=== PATIENT | male | born 1945 | race Caucasian/White ===

== ENCOUNTER 2018-09-18 16:36 | Emergency (ER) | payer OTHER ==
--- OUTSIDE RECORDS SUMMARY | 2018-09-18 16:40 | XMS REPORT | Clinical Summary ---
:1945 Author Organization [facility] Address [address] [place] [address] Care Team Providers Name Role Phone Abel Pruitt MD Primary Care Provider Allergies Active Allergy Reactions Severity Noted Date Comments No Known Drug Allergies 09/21/2015 Medications Medication Sig Dispensed Refills Start End Date Status Date LANTUS SOLOSTAR 100 Inject 70 Units 0 Active unit/mL injection under the skin 7 (pen) nightly. acetaminophen Take 500 mg by 0 Active (TYLENOL) 500 MG mouth 2 (two) tablet times a day. magnesium oxide 400 Take 800 mg by 0 Active mg capsule mouth daily. metFORMIN Take 1,000 mg 0 Active (GLUCOPHAGE) 1,000 mg by mouth 2 tablet (two) times a day with meals. multivitamin Take 1 tablet 0 Active (THERAGRAN) tablet by mouth daily. traMADol (ULTRAM) 50 Take 50 mg by 0 Active mg tablet mouth every 8 (eight) hours as needed for moderate pain. metoclopramide Take 1 tablet 120 tablet 11 06/07/19 Active (REGLAN) 10 MG tablet (10 mg total) 9 20 by mouth 4 (four) times a day. hydrALAZINE TAKE 2 TABLET 180 tablet 0 Active (APRESOLINE) 10 MG BY MOUTH THREE 9 tablet TIMES A DAY amLODIPine (NORVASC) Take 1 tablet 90 tablet 3 Active 10 mg (10 mg total) 9 tabletIndications: by mouth every Coronary morning. arteriosclerosis, Mixed hyperlipidemia carvedilol (COREG) 25 TAKE ONE AND 135 tablet 3 Active MG tabletIndications: ONE-HALF (1 & 9 Coronary 1/2) TABLET BY arteriosclerosis, MOUTH TWO TIMES Mixed hyperlipidemia A DAY isosorbide Take 1 tablet 90 tablet 3 Active mononitrate (IMDUR) (30 mg total) 9 30 MG 24 hr by mouth daily. tabletIndications: Coronary arteriosclerosis, Mixed hyperlipidemia lisinopril Take 1 tablet 180 tablet 3 Active (PRINIVIL,ZESTRIL) 20 (20 mg total) 9 mg tabletIndications: by mouth 2 Coronary (two) times a arteriosclerosis, day. Mixed hyperlipidemia hydrALAZINE Take 1 tablet 90 tablet 2 08/21/19 Active (APRESOLINE) 25 MG (25 mg total) 9 20 tabletIndications: by mouth every Coronary 8 (eight) arteriosclerosis, hours. Mixed hyperlipidemia evolocumab (REPATHA Inject 1 mL 6 Syringe 6 Active SURECLICK) 140 mg/mL (140 mg total) 9 pen injector under the skin injectionIndications: every 14 Mixed hyperlipidemia, (fourteen) Coronary days. Check arteriosclerosis lipids after 6 months to continue this medication famotidine (PEPCID) Take 1 tablet 60 tablet 10 08/27/19 Active 40 MG tablet (40 mg total) 9 20 by mouth 2 (two) times a day. amLODIPine (NORVASC) Take 1 tablet 90 tablet 3 01/16/20 Discontinued 10 mg tablet (10 mg total) 7 18 by mouth every morning. pantoprazole Take 40 mg by 0 05/08/19 Discontinued (PROTONIX) 40 MG EC mouth daily. 7 19 tablet isosorbide TAKE ONE TABLET 30 tablet 5 01/09/20 Discontinued mononitrate (IMDUR) BY MOUTH DAILY 8 18 30 MG 24 hr tablet lisinopril TAKE ONE TABLET 90 tablet 2 01/09/20 Discontinued (PRINIVIL,ZESTRIL) 20 BY MOUTH TWICE 8 18 mg tablet A DAY nitroglycerin Place 0.4 mg 0 04/11/19 Discontinued (NITROSTAT) 0.4 MG SL under the 19 tablet tongue every 5 (five) minutes as needed for chest pain. carvedilol (COREG) Take 3 tablets 180 tablet 0 11/01/19 Discontinued 12.5 MG tablet (37.5 mg total) 8 18 by mouth 2 (two) times a day. hydrALAZINE Take 1 tablet 90 tablet 0 10/18/19 Discontinued (APRESOLINE) 25 MG (25 mg total) 8 18 tablet by mouth every 8 (eight) hours. aspirin (ECOTRIN) 81 Take 1 tablet 30 tablet 11 05/22/19 Discontinued MG enteric coated (81 mg total) 8 19 tablet by mouth daily. hydrALAZINE Take 1 tablet 90 tablet 2 10/19/19 Discontinued (APRESOLINE) 25 MG (25 mg total) 8 18 tablet by mouth every 8 (eight) hours. hydrALAZINE Take 1 tablet 90 tablet 2 10/19/19 Discontinued (APRESOLINE) 25 MG (25 mg total) 8 18 tablet by mouth every 8 (eight) hours. hydrALAZINE Take 1 tablet 90 tablet 2 04/23/19 Discontinued (APRESOLINE) 25 MG (25 mg total) 8 19 tablet by mouth every 8 (eight) hours. carvedilol (COREG) Take 3 tablets 180 tablet 2 02/20/20 Discontinued 12.5 MG tablet (37.5 mg total) 8 18 by mouth 2 (two) times a day. lisinopril TAKE 1 TABLET 120 tablet 0 03/28/20 Discontinued (PRINIVIL,ZESTRIL) 20 BY MOUTH TWICE 8 18 mg tablet DAILY isosorbide Take 1 tablet 30 tablet 11 05/07/19 Discontinued mononitrate (IMDUR) (30 mg total) 8 19 30 MG 24 hr tablet by mouth daily. amLODIPine (NORVASC) TAKE 1 TABLET 90 tablet 0 05/04/19 Discontinued 10 mg tablet BY MOUTH EVERY 8 19 MORNING evolocumab (REPATHA Inject 1 mL 6 Syringe 6 03/15/20 Discontinued SURECLICK) 140 mg/mL (140 mg total) 8 18 pen injector under the skin injectionIndications: every 14 Mixed hyperlipidemia (fourteen) days. Check lipids after 6 months to continue this medication carvedilol (COREG) TAKE 3 TABLETS 180 tablet 2 08/09/19 Discontinued 12.5 MG tablet BY MOUTH TWICE 8 19 DAILY evolocumab (REPATHA Inject 1 mL 6 Syringe 6 08/22/19 Discontinued SURECLICK) 140 mg/mL (140 mg total) 8 19 pen injector under the skin injectionIndications: every 14 Mixed hyperlipidemia (fourteen) days. Check lipids after 6 months to continue this medication lisinopril TAKE ONE TABLET 60 tablet 1 04/11/19 Discontinued (PRINIVIL,ZESTRIL) 20 BY MOUTH TWICE 8 19 mg tablet A DAY lisinopril Take 1 tablet 180 tablet 3 08/22/19 Discontinued (PRINIVIL,ZESTRIL) 20 (20 mg total) 8 19 mg tablet by mouth 2 (two) times a day. famotidine (PEPCID) Take 1 tablet 90 tablet 3 05/08/19 Discontinued 40 MG tablet (40 mg total) 9 19 by mouth daily. hydrALAZINE Take 1 tablet 90 tablet 2 08/22/19 Discontinued (APRESOLINE) 25 MG (25 mg total) 9 19 tablet by mouth every 8 (eight) hours. amLODIPine (NORVASC) TAKE ONE TABLET 90 tablet 3 05/07/19 Discontinued 10 mg tablet BY MOUTH EVERY 9 19 MORNING isosorbide Take 1 tablet 90 tablet 3 08/22/19 Discontinued mononitrate (IMDUR) (30 mg total) 9 19 30 MG 24 hr tablet by mouth daily. amLODIPine (NORVASC) Take 1 tablet 90 tablet 3 08/22/19 Discontinued 10 mg tablet (10 mg total) 9 19 by mouth every morning. pantoprazole Take 1 tablet 90 tablet 3 05/22/19 Discontinued (PROTONIX) 40 MG EC (40 mg total) 9 19 tabletIndications: by mouth daily. Gastroesophageal reflux disease, esophagitis presence not specified, Dysphagia, unspecified type, Gastroparesis famotidine (PEPCID Take by mouth 0 08/28/19 Discontinued ORAL) daily. 19 hydrALAZINE TAKE 2 TABLET 180 tablet 0 07/13/19 Discontinued (APRESOLINE) 10 MG BY MOUTH THREE 9 19 tablet TIMES A DAY hydrALAZINE TAKE 2 TABLET 180 tablet 0 08/22/19 Discontinued (APRESOLINE) 10 MG BY MOUTH THREE 9 19 tablet TIMES A DAY carvedilol (COREG) 25 TAKE ONE AND 135 tablet 3 08/22/19 Discontinued MG tablet ONE-HALF ( & 04/11) TABLET BY MOUTH TWO TIMES A DAY Active Problems Problem Noted Date Gastroparesis 05/08/2018 Hypertensive urgency, malignant 08/30/2017 Benign hypertension 02/11/2016 Carotid bruit 02/11/2016 Coronary arteriosclerosis 02/11/2016 Diabetes mellitus 02/11/2016 Shortness of breath 02/11/2016 Essential hypertension 02/11/2016 Hypertensive urgency 02/11/2016 Hypomagnesemia 02/11/2016 Multinodular goiter 02/11/2016 Peripheral vascular disease 02/11/2016 Last Assessment & Plan: N. Leg symptoms most likely musculoskeletal. I highly encouraged him to cease smoking. I have also encouraged better lipid management. 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 Plan: No intervention needed. RTC prn. Fatty liver 02/11/2016 Body tinea 02/11/2016 GERD (gastroesophageal reflux disease) Dysphagia Peptic ulcer disease Colon cancer screening Encounters Date Type Specialty Care Team Description 08/27/2018 Orders Only Gastroenterology Ramona Robles MA 08/27/2018 Telephone Gastroenterology Huey Thompson MD 08/22/2018 Refill Cardiology Rajan Sahu RN 08/21/2018 Office Visit Cardiology Asaf Coronary arteriosclerosis ( Primary Dx); MD Steve Mixed hyperlipidemia; Hypercholesterolemia; Essential hypertension; Coronary artery disease involving [place] coronary artery of choct[place] heart without angina pectoris; History of coronary artery stent placement; Peripheral vascular disease (HCC) 08/21/2018 Office Visit Cardiovascular Nicol Schaefer Peripheral vascular MD Anibal disease (HCC) (Primary Dx) 08/20/2018 Refill Cardiology Rajan Ron MD 08/16/2018 Refill Cardiology Rajan Ron MD 08/08/2018 Refill Cardiology Rajan Ron MD 07/25/2018 Telephone gregorio Lion appt for NANETTE Colbert vascular 07/17/2018 Telephone Cardiology Luis Alberto, scheduling CV surgery NANETTE Colbert appt problem 07/13/2018 Refill Cardiology Rajan Sahu RN 07/12/2018 Refill Cardiology Schroth, Med Refill MD Steve 07/12/2018 Refill Cardiology Schroth, Med Refill MD Steve 06/13/2018 Telephone Cardiology Luis Alberto, vascular surgery NANETTE Colbert consult 06/13/2018 Orders Only Cardiology EMILY Sahu (peripheral NANETTE Colbert vascular disease) ([facility]) (Primary Dx) 06/11/2018 Office Visit Gastroenterology Jay, Gastroesophageal reflux disease, esophagitis presence not specified (Primary Dx); Huey Peptic ulcer disease; MD Guadalupe Gastroparesis; Dysphagia, unspecified type; Screening for colon cancer; Colon cancer screening 06/11/2018 Refill Cardiology Asaf, Med Refill MD Steve 05/22/2018 Office Visit Cardiology Asaf, Coronary artery disease involving [place] coronary artery of [place] heart without angina pectoris ( Primary Dx); MD Steve Hypercholesterolemia; Essential hypertension; Type 2 diabetes mellitus without complication, with long-term current use of insulin ([facility]) 05/08/2018 Office Visit Gastroenterology Jay, Gastroesophageal reflux disease, esophagitis presence not specified (Primary Dx); Huey Dysphagia, unspecified type; MD Guadalupe Gastroparesis 05/07/2018 Documentation Gastroenterology Ramona Robles MA 05/07/2018 Refill Cardiology Luis Alberto, Med Refill NANETTE Colbert 05/07/2018 Orders Only Gastroenterology Ramona Robles, CARRI 05/04/2018 Refill Cardiology Juli, Med Refill Pastor Kilgore MD 04/24/2018 Orders Only GastroenterRamona Peña MA 04/24/2018 Documentation Gastroenterology Huey Thompson MD 04/24/2018 Telephone Gastroenterology Huey Thompson MD 04/23/2018 Refill Cardiology Ledesma, Med Refill Sherine, MA 04/18/2018 Orders Only Gastroenterology Huey Thompson MD 04/17/2018 Lab Lab Huey Thompson MD 04/13/2018 Telephone Gastroenterology Meenakshi Cruz 04/11/2018 Hospital Encounter Radiology Jay, Reflux esophagitis; Huey Dysphagia, unspecified type MD Guadalupe 04/11/2018 Office Visit Gastroenterology Jay, Dysphagia, unspecified type (Primary Dx); Huey Reflux esophagitis; MD Guadalupe Gastroesophageal reflux disease, esophagitis presence not specified 04/11/2018 Telephone Gastroenterology Ramona Robles, CARRI 03/28/2018 Refill Cardiology Luis Alberto, Med Refill NANETTE Colbert 03/27/2018 Refill Cardiology Asaf, Med Rohitill MD Steve 03/15/2018 Refill Cardiology Baltazar, Med Refill Sherine, MA 03/15/2018 Refill Cardiology Ledesma, Med Refill Sherine, MA 03/15/2018 Telephone Cardiology Joselito Sahu RN transmision 03/15/2018 Telephone Cardiology Joselito Sahu questions/ NANETTE Colbert [employer] 03/13/2018 Refill Cardiology Luis Alberto, Med Refill NANETTE Colbert 03/08/2018 Refill Cardiology Luis Alberto Repatha authorization NANETTE Colbert questions 02/21/2018 Telephone Cardiology Luis Alberto, needs to make NANETTE Colbert appt/f/u MRI 02/19/2018 Telephone Cardiology Baltazar, Appointment CARRI Basurto 02/19/2018 Refill Cardiology Asaf, Med Refglen Wilson MD 02/15/2018 Telephone Cardiology Luis Alberto, earlier GI appt NANETTE Colbert 02/13/2018 Documentation Gastroenterology Margaret, Shama Greene MA 02/12/2018 Hospital Encounter Procedural Cardiology Asaf, Essential hypertension; MD EMILY Wilson (peripheral vascular disease) ([facility]) 02/12/2018 Refill Cardiology joselito Sahu RN authorization 02/09/2018 Telephone Cardiology Luis Alberto GI consult/ joselito Colbert RN start 02/09/2018 Telephone Cardiology Luis Alberto, MRI schedluling NANETTE Colbert 02/08/2018 Office Visit Cardiology Asaf, Essential hypertension ( Primary Dx); MD Steve PVD (peripheral vascular disease) ([facility]); Diabetes mellitus due to underlying condition with hyperosmolarity without coma, unspecified whether [facility] insulin use ([facility]); Reflux esophagitis; Mixed hyperlipidemia; Type 2 diabetes mellitus without complication, with long-term current use of insulin ([facility]); Hypercholesterolemia; History of coronary artery stent placement; Peripheral vascular disease ([facility]); Cigarette nicotine dependence without complication 01/15/2018 Refill Cardiology Asaf, Med Hugo Wilson MD 01/08/2018 Refill Cardiology Luis Alberto, Med Refill NANETTE Colbert 01/08/2018 Telephone Cardiology Luis Alberto med refill/appt NANETTE Colbert needed 01/08/2018 Refill Cardiology Asaf Med Refglen Wilson MD 2017 Refill Cardiology Rajan Sahu Refill NANETTE Colbert 10/18/2017 Refill Cardiology Rajan Sahu Refill NANETTE Colbert 10/18/2017 Refill Cardiology Luis Alberto Med Refill NANETTE Colbert 10/18/2017 Refill Cardiology Luis Alberto Med Refill NANETTE Colbert 10/17/2017 Telephone Cardiology Luis Alberto Med Refill NANETTE Colbert after 09/17/2017 Family History Medical History Relation Name Comments Coronary artery disease Father Diabetes Father Hypertension Mother Relation Name Status Comments Brother Father Maternal Grandfather Mother Paternal Grandfather Paternal Grandmother Social History Tobacco Use Types Packs/Day Years Used Date Current Every Day Smoker Cigarettes 0.5 50 Started: 1962 Smokeless Tobacco: Current User Chew Tobacco Cessation: Ready to Quit: No; Counseling Given: Yes Alcohol Use Drinks/Week oz/Week Comments No Sex Assigned at Date Recorded Not on file Job Start Date Occupation Industry Not on file Not on file Not on file Travel History Travel Start Travel End No recent travel history available. Last Filed Vital Signs Vital Sign Reading Time Taken Blood Pressure 153/66 08/21/2018 1:26 PM CDT Pulse 81 08/21/2018 1:26 PM CDT Temperature 36.7 C (98 F) 08/21/2018 9:45 AM CDT Respiratory Rate 18 02/12/2018 9:30 AM DRAPERY EXAMINER Oxygen Saturation 98% 02/12/2018 9:30 AM DRAPERY EXAMINER Inhaled Oxygen Concentration - - Weight 102 kg (224 lb) 08/21/2018 1:26 PM CDT Height 180.3 cm (5' 11") 08/21/2018 1:26 PM CDT Body Mass Index 31.24 08/21/2018 1:26 PM CDT Plan of Treatment Health Maintenance Due Date Last Done Comments DIABETIC RETINAL EYE EXAM 1945 URINE MICROALBUMIN 11/01/1955 COLONOSCOPY SCREENING 11/01/1995 SHINGLES VACCINES (#1) 11/01/1995 65+ PNEUMOCOCCAL VACCINE (1 of 2 - PCV13) 2010 DIABETIC FOOT EXAM 06/04/2016 06/04/2015 INFLUENZA VACCINE 11/08/2018 Procedures Procedure Name Priority Date/Time Associated Diagnosis Comments ECG 12-LEAD Routine 08/21/2018 1:31 Coronary Results for this PM CDT arteriosclerosis procedure are in the results section. MAGNESIUM LEVEL Routine 05/08/2018 1:04 Gastroesophageal reflux Results for this PM DRAPERY EXAMINER disease, esophagitis procedure are in presence not specified the results Dysphagia, unspecified section. type Gastroparesis CBC HEMOGRAM Routine 05/08/2018 1:04 Gastroesophageal reflux Results for this PM DRAPERY EXAMINER disease, esophagitis procedure are in presence not specified the results Dysphagia, unspecified section. type Gastroparesis SURGICAL PATHOLOGY Routine 04/17/2018 12:16 Results for this REQUEST PM DRAPERY EXAMINER procedure are in the results section. FL ESOPHAGRAM Routine 04/11/2018 4:27 Reflux esophagitis Results for this COMPLETE PM DRAPERY EXAMINER Dysphagia, unspecified procedure are in type the results section. CARDIAC DYNAMIC MRA Routine 02/12/2018 11:06 Essential hypertension Results for this ABDOMEN PELVIS LOWER AM DRAPERY EXAMINER PVD (peripheral procedure are in EXT RUNOFF W WO vascular disease) (HCC) the results CONTRAST section. POC PANEL Routine 02/12/2018 9:43 Results for this AM DRAPERY EXAMINER procedure are in the results section. ESTIMATED GFR Routine 02/12/2018 9:43 Results for this AM DRAPERY EXAMINER procedure are in the results section. HEMOGLOBIN A1C Routine 02/08/2018 4:03 Diabetes mellitus due Results for this PM CDT to underlying condition procedure are in with hyperosmolarity the results without coma, section. unspecified whether [facility] insulin use (HCC) LIPID PANEL Routine 02/08/2018 4:03 Mixed hyperlipidemia Results for this PM CDT procedure are in the results section. COMPREHENSIVE Routine 02/08/2018 4:03 Essential hypertension Results for this METABOLIC PANEL PM CDT procedure are in the results section. MAGNESIUM LEVEL Routine 02/08/2018 4:03 Essential hypertension Results for this PM CDT procedure are in the results section. ECG 12-LEAD Routine 02/08/2018 2:52 Essential hypertension Results for this PM CDT procedure are in the results section. after 09/17/2017 Results ECG 12 lead (08/21/2018 1:31 PM CDT)Only the most recent of2 resultswithin the time period is included. Ventricular rate 69 [facility] Atrial rate 69 [facility] TN interval 142 [facility] QRSD interval 96 [facility] QT interval 402 [facility] QTC interval 430 [facility] P axis 1 68 [facility] QRS axis 1 -24 [facility] T wave axis 21 [facility] EKG impression Sinus rhythm with [facility] premature atrial complexes-Otherwise normal ECG-In automated comparison with ECG of 08-FEB-2018 14:52,-premature atrial complexes are now present- Specimen Narrative Performed At Performing Organization Address City/State/Zipcode Phone Number [facility] [address] [place] [address] CBC hemogram (05/08/2018 1:04 PM DRAPERY EXAMINER) WBC 9.1 3.8 - 10.8 [facility] Thousand/uL [place] RBC 4.22 4.20 - 5.80 [facility] Million/uL [place] HGB 12.0 (L) 13.2 - 17.1 g/dL [facility] [place] HCT 35.4 (L) 38.5 - 50.0 % [facility] [place] MCV 83.9 80.0 - 100.0 fL [facility] [place] MCH 28.4 27.0 - 33.0 pg [facility] [place] MCHC 33.9 32.0 - 36.0 g/dL [facility] [place] RDW 12.7 11.0 - 15.0 % [facility] [place] Platelet count 190 140 - 400 [facility] Thousand/uL [place] MPV 12.9 (H) 7.5 - 12.5 fL [facility] [place] Specimen Blood Narrative Performed At FASTING:NO [facility] FASTING: NO Resulting Agency Comment Performing Organization Information: Site ID: [id number] [facility]: [facility] Address: [address] [place] [id number] Director: Ayesha Joya Performing Organization Address City/[facility]/Zipcode Phone Number [facility] [address] [address] Magnesium level (05/08/2018 1:04 PM DRAPERY EXAMINER)Only the most recent of2 resultswithin the time period is included. Magnesium 1.7 1.5 - 2.5 mg/dL [facility] [place] Specimen Blood Narrative Performed At FASTING:NO [facility] FASTING: NO Resulting Agency Comment Performing Organization Information: Site ID: [id number] Name: [facility] Address: [address] [place] [address] Director: Ayesha Joya Performing Organization Address City/State/Zipcode Phone Number SHASHI HERNANDEZ [place] [address] [place], [place] [id number] Surgical pathology request (04/17/2018 12:16 PM DRAPERY EXAMINER) [facility] DEPARTMENT OF PATHOLOGY AND GENOMIC MEDICINE Surgical pathology See link below [facility] DEPARTMENT OF report for PDF Lab PATHOLOGY AND Report GENOMIC MEDICINE Result status This is Final [facility] DEPARTMENT OF Report for PATHOLOGY AND [id number] GENOMIC MEDICINE Specimen Performing Organization Address City/State/Zipcode Phone Number [facility] DEPARTMENT OF PATHOLOGY AND [address] [place] [address] [employer] MEDICINE [place] Esophagram Complete (04/11/2018 4:27 PM DRAPERY EXAMINER) Specimen Narrative Performed At EXAMINATION:[place] ESOPHAGRAM COMPLETE RADIANT CLINICAL HISTORY:K21.0 Gastro-esophageal reflux disease with esophagitis, R13.10 Dysphagiaunspecified, Dysphagiaunexplained COMPARISON:None. Fluoroscopy time: 2.3 minutes. 12 images. FINDINGS: The patient swallowed air producing granules, a barium tablet, and thick and thin consistency barium without difficulty. Limited laryngeal grams was performed and demonstrated no or laryngeal penetration or aspiration with thin consistency barium. There is retrograde escape of contrast material from the primary contraction wave. Esophageal motility was otherwise normal. No focal mucosal abnormality is identified. There is no evidence of stricture. A tiny sliding hiatal hernia is present. Barium tablet passed into the stomach without difficulty. There was no spontaneous gastroesophageal reflux, and gastroesophageal reflux could not be provoked with Valsalva maneuver, reverse Trendelenburg positioning, and combined Valsalva and reverse Trendelenburg. IMPRESSION: Small hiatal hernia. Retrograde escape of the barium column from the primary contraction wave; otherwise normal esophageal motility. No esophageal stricture. [facility]-[id number] Procedure Note Interface, Radiology Results Incoming - 04/11/2018 4:53 PM DRAPERY EXAMINER EXAMINATION: [place] ESOPHAGRAM COMPLETE CLINICAL HISTORY: K21.0 Gastro-esophageal reflux disease with esophagitis, R13.10 Dysphagia unspecified, Dysphagia unexplained COMPARISON: None. Fluoroscopy time: 2.3 minutes. 12 images. FINDINGS: The patient swallowed air producing granules, a barium tablet, and thick and thin consistency barium without difficulty. Limited laryngeal grams was performed and demonstrated no or laryngeal penetration or aspiration with thin consistency barium. There is retrograde escape of contrast material from the primary contraction wave. Esophageal motility was otherwise normal. No focal mucosal abnormality is identified. There is no evidence of stricture. A tiny sliding hiatal hernia is present. Barium tablet passed into the stomach without difficulty. There was no spontaneous gastroesophageal reflux, and gastroesophageal reflux could not be provoked with Valsalva maneuver, reverse Trendelenburg positioning , and combined Valsalva and reverse Trendelenburg. IMPRESSION: Small hiatal hernia. Retrograde escape of the barium column from the primary contraction wave; otherwise normal esophageal motility. No esophageal stricture. [facility]-[id number] Performing Organization Address City/State/Zipcode Phone Number [facility] [address] [place] [address] Cardiac dynamic mra abdomen pelvis lower ext runoff w wo contrast (02/12/2018 11 :06 AM DRAPERY EXAMINER) Specimen Narrative Performed At [facility] CMR Report Name: WAYNE CAMARILLO :1945 Scan Date: 2018-02-12 10:42:37 Electronically signed by Nicol Monzon M.D. 17:40:03 VITALS HEIGHT/WEIGHT HEIGHT:71.00 in 180.34 cm WEIGHT:225.00 lbs 102.06 kgs BSA/BP BSA:2.22 m^2 SYSTOLIC BP:170 mmHg DIASTOLIC BP:75 mmHg HEART RATE/RHYTHM BASELINE HR:73 BPM HEART RHYTHM:Sinus Rhythm FINAL IMPRESSION: Compared with the study of 08/14/2015, the atherosclerotic disease appears more severe in the right anterior tibial artery on the current study. SUMMARY ABDOMEN: SUPRARENAL AORTA:Moderate diffuse atherosclerotic plaque. INFRARENAL AORTA:Small indentation within the right thickened wall of the infrarenal aorta (thickening consistent with plaque), concerning for a penetrating atherosclerotic ulcer. However, this feature was present on the prior study and appears unchanged. Moderate diffuse atherosclerotic plaque. RIGHT RENAL ARTERY:No significant stenosis. LEFT RENAL ARTERY:Early bifurcation after takeoff from the juxtarenal abdominal aorta. Severe (>70%) ostial and proximal stenosis. CELIAC ARTERY:Moderate (50-69%) stenosis in the ostium. SUPERIOR MESENTERIC ARTERY:Cannot exclude possible PCI vs. significant calcification in the proximal SMA. PELVIS: RIGHT COMMON ILIAC:Mild stenosis (25-49%) at the ostium. RIGHT INTERNAL ILIAC:No significant stenosis. RIGHT EXTERNAL ILIAC:No significant stenosis. LEFT COMMON ILIAC:Mild stenosis (25-49%) at the ostium and non-obstructive mild eccentric stenosis (25-49%) in the distal ARCELIA. LEFT INTERNAL ILIAC:Mild atherosclerotic plaque. LEFT EXTERNAL ILIAC:Mild atherosclerotic plaque and stenosis (<50%). RL EXTREMITY: COMMON FEMORAL:Moderate stenosis (50-69%). SUPERFICIAL FEMORAL:No significant stenosis. PROFUNDA FEMORIS:No significant stenosis. POPLITEAL:No significant stenosis. ANTERIOR TIBIAL:Severe multifocal stenoses (70-99%) along the mid to distal segment. TIBIAL PERONEAL TRUNK:No significant stenosis. POSTERIOR TIBIAL:No significant stenosis. PERONEAL:No significant stenosis. LL EXTREMITY: COMMON FEMORAL:No significant stenosis. SUPERFICIAL FEMORAL:Moderate focal stenosis (50-69%) in the proximal segment. PROFUNDA FEMORIS:No significant stenosis. POPLITEAL:No significant stenosis. ANTERIOR TIBIAL:No significant stenosis. TIBIAL PERONEAL TRUNK:No significant stenosis. POSTERIOR TIBIAL:No significant stenosis. PERONEAL:No significant stenosis. VENOUS: SUPRARENAL IVC:No thrombosis or external compression. INFRARENAL IVC:No thrombosis or external compression. HEPATIC VEIN:No thrombosis or external compression. RENAL VEINS:No thrombosis or external compression. The left renal vein has a preaortic course. RIGHT COMMON ILIAC VEIN:No thrombosis or external compression. RIGHT FEMORAL VEIN:No thrombosis or external compression. LEFT COMMON ILIAC VEIN:No thrombosis or external compression. LEFT FEMORAL VEIN:No thrombosis or external compression. OTHER FINDINGS: Metallic artifact is present in the right thigh. CORE EXAM MEASUREMENTS EXTRACELLULAR VOLUME MEASUREMENT HEMATOCRIT:39 % HEMATOCRIT DATE:2018-02-12 00:00:00 VASCULAR LOWER VASCULAR EVALUATION OF THE ABDOMINAL AORTA AND PELVIS COMMENTS (no comments) . . | EVALUATION DETAILS (Abdominal Aorta and Pelvis) | | | | ABDOMINAL AORTA (SUPRA RENAL) | | Dimension A:2.4 cm | + + | ABDOMINAL AORTA (JUXTA RENAL) | | Dimension A:1.7 cm | + + | ABDOMINAL AORTA (INFRA RENAL) | | Dimension A:1.7 cm | . . SCAN INFO GENERAL CONTRAST AGENT TYPE:Dotarem LOT NUMBER:[id number] EXPIRATION DATE:2018-09-08 00:00:00 VOLUME ADMINISTERED:40 ml DOSAGE FOR 0.5M:0.20 mmol/kg SERUM CREATININE:1.3 sCr GFR:57.67 ml/min/1.73m^2 CREATININE DATE:2018-02-12 00:00:00 SEDATION SEDATION USED?:No PULSE SEQUENCES Single Shot BB WANG, 3D MRA w and w/o contrast SETUP TYPE:Clinical INPATIENT:No LOCATION:[facility] INCOMPLETE SCAN:No REASON(S) FOR SCAN:Vascular Disease REFERRING PHYSICIAN:Steve Ron MD ATTENDING PHYSICIAN:NICOL Desai MD TECHNICIANS:1) Nancy VIDAL BILLING Patient Account [id number] CPT Codes 48301, 66327 ICD10 Codes I73.9 BILLING - OTHER OTHER:Please include CPT 11638-Uvmd and CPT 16919-Behfp Report generated by Pre[employer], a product of [employer] Procedure Note Interface, Radiology Results In - 02/12/2018 5:40 PM PRIYANKA Desai Protestant CMR Report Name: WAYNE CAMARILLO : 1945 Scan Date: 2018-02-12 10:42:37 Electronically signed by Nicol Monzon M.D. 17:40:03 VITALS HEIGHT/WEIGHT HEIGHT: 71.00 in 180.34 cm WEIGHT: 225.00 lbs 102.06 kgs BSA/BP BSA: 2.22 m^2 SYSTOLIC BP: 170 mmHg DIASTOLIC BP: 75 mmHg HEART RATE/RHYTHM BASELINE HR: 73 BPM HEART RHYTHM: Sinus Rhythm FINAL IMPRESSION: Compared with the study of 08/14/2015, the atherosclerotic disease appears more severe in the right anterior tibial artery on the current study. SUMMARY ABDOMEN: SUPRARENAL AORTA: Moderate diffuse atherosclerotic plaque. INFRARENAL AORTA: Small indentation within the right thickened wall of the infrarenal aorta (thickening consistent with plaque), concerning for a penetrating atherosclerotic ulcer. However, this feature was present on the prior study and appears unchanged. Moderate diffuse atherosclerotic plaque. RIGHT RENAL ARTERY: No significant stenosis. LEFT RENAL ARTERY: Early bifurcation after takeoff from the juxtarenal abdominal aorta. Severe (>70%) ostial and proximal stenosis. CELIAC ARTERY:Moderate (50-69%) stenosis in the ostium. SUPERIOR MESENTERIC ARTERY: Cannot exclude possible PCI vs. significant calcification in the proximal SMA. PELVIS: RIGHT COMMON ILIAC: Mild stenosis (25-49%) at the ostium. RIGHT INTERNAL ILIAC: No significant stenosis. RIGHT EXTERNAL ILIAC: No significant stenosis. LEFT COMMON ILIAC: Mild stenosis (25-49%) at the ostium and non-obstructive mild eccentric stenosis (25-49%) in the distal ARCELIA. LEFT INTERNAL ILIAC: Mild atherosclerotic plaque. LEFT EXTERNAL ILIAC: Mild atherosclerotic plaque and stenosis (<50%). RL EXTREMITY: COMMON FEMORAL: Moderate stenosis (50-69%). SUPERFICIAL FEMORAL: No significant stenosis. PROFUNDA FEMORIS: No significant stenosis. POPLITEAL: No significant stenosis. ANTERIOR TIBIAL: Severe multifocal stenoses (70-99%) along the mid to distal segment. TIBIAL PERONEAL TRUNK:No significant stenosis. POSTERIOR TIBIAL: No significant stenosis. PERONEAL: No significant stenosis. LL EXTREMITY: COMMON FEMORAL: No significant stenosis. SUPERFICIAL FEMORAL: Moderate focal stenosis (50-69%) in the proximal segment. PROFUNDA FEMORIS: No significant stenosis. POPLITEAL: No significant stenosis. ANTERIOR TIBIAL: No significant stenosis. TIBIAL PERONEAL TRUNK:No significant stenosis. POSTERIOR TIBIAL: No significant stenosis. PERONEAL: No significant stenosis. VENOUS: SUPRARENAL IVC: No thrombosis or external compression. INFRARENAL IVC: No thrombosis or external compression. HEPATIC VEIN: No thrombosis or external compression. RENAL VEINS: No thrombosis or external compression. The left renal vein has a preaortic course. RIGHT COMMON ILIAC VEIN: No thrombosis or external compression. RIGHT FEMORAL VEIN: No thrombosis or external compression. LEFT COMMON ILIAC VEIN: No thrombosis or external compression. LEFT FEMORAL VEIN: No thrombosis or external compression. OTHER FINDINGS: Metallic artifact is present in the right thigh. CORE EXAM MEASUREMENTS EXTRACELLULAR VOLUME MEASUREMENT HEMATOCRIT: 39 % HEMATOCRIT DATE: 2018-02-12 00:00:00 VASCULAR LOWER VASCULAR EVALUATION OF THE ABDOMINAL AORTA AND PELVIS COMMENTS (no comments) . . | EVALUATION DETAILS (Abdominal Aorta and Pelvis) | | | | ABDOMINAL AORTA (SUPRA RENAL) | | Dimension A: 2.4 cm | + + | ABDOMINAL AORTA (JUXTA RENAL) | | Dimension A: 1.7 cm | + + | ABDOMINAL AORTA (INFRA RENAL) | | Dimension A: 1.7 cm | . . SCAN INFO GENERAL CONTRAST AGENT TYPE: Dotarem LOT NUMBER: [id number] EXPIRATION DATE: 2018-09-08 00:00:00 VOLUME ADMINISTERED: 40 ml DOSAGE FOR 0.5M: 0.20 mmol/kg SERUM CREATININE: 1.3 sCr GFR: 57.67 ml/min/1.73m^2 CREATININE DATE: 2018-02-12 00:00:00 SEDATION SEDATION USED?: No PULSE SEQUENCES Single Shot BB WANG, 3D MRA w and w/o contrast SETUP TYPE: Clinical INPATIENT: No LOCATION: [facility] INCOMPLETE SCAN: No REASON(S) FOR SCAN: Vascular Disease REFERRING PHYSICIAN: Steve Ron MD ATTENDING PHYSICIAN: NICOL Desai MD TECHNICIANS: 1) Nancy VIDAL BILLING Patient Account [id number] CPT Codes 34551, 11217 ICD10 Codes I73.9 BILLING - OTHER OTHER: Please include CPT 63878-Fzxx and CPT 56322-Dbeiq Report generated by [employer]OMOTICS, a product of [employer] Organization Address City/State/Zipcode Phone Number [facility] [phone] [phone] Estimated GFR (02/12/2018 9:43 AM DRAPERY EXAMINER) Pathologist [facility] Estimated GFR 54 (A) mL/min/1.73 [facility] DEPARTMENT OF Comment: m2 PATHOLOGY AND CatergoryUnitsInterpretation GENOMIC MEDICINE G1 >=90 Normal or high G2 60-89Mildly decreased M2f55-59Chtrxp to moderately decreased G5y05-57Xoqfzglpij to severely decreased G4 15-29Severely decreased G5 <15Kidney failure The eGFR was calculated using the Chronic Kidney Disease Epidemiology Collaboration (CKD-EPI) equation. Interpretation is based on recommendations of the National Kidney Foundation-Kidney Disease Outcomes Quality Initiative (NKF-KDOQI) published in 2014. Specimen Blood Performing Organization Address City/State/Zipcode Phone Number [facility] DEPARTMENT OF PATHOLOGY AND [address] [place] [address] [employer] MEDICINE POC panel (02/12/2018 9:43 AM DRAPERY EXAMINER) [facility] POC creatinine 1.3 (H) 0.7 - 1.2 [facility] DEPARTMENT OF mg/dl PATHOLOGY AND [employer] MEDICINE POC hematocrit 39 (L) 41 - 51 % [facility] DEPARTMENT OF Comment: PATHOLOGY AND Meter ID: [id number] [employer] MEDICINE Aerospace Engineer: Bee Vidal Specimen Performing Organization Address City/State/Zipcode Phone Number [facility] DEPARTMENT OF PATHOLOGY AND [address] [place], [place] [phone] [employer] [facility] Hemoglobin A1c (02/08/2018 4:03 PM CDT) [facility] Hemoglobin A1C 8.8 (H) <5.7 % of [facility] Comment: total Hgb [place] For someone without known diabetes, a hemoglobin A1c value of 6.5% or greater indicates that they may have diabetes and this should be confirmed with a follow-up test. For someone with known diabetes, a value <7% indicates that their diabetes is well controlled and a value greater than or equal to 7% indicates suboptimal control. A1c targets should be individualized based on duration of diabetes, age, comorbid conditions, and other considerations. Currently, no consensus exists regarding use of hemoglobin A1c for diagnosis of diabetes for children. Specimen Blood Narrative Performed At FASTING:NO [facility] FASTING: NO Resulting Agency Comment Performing Organization Information: Site ID: [id number] Name: [facility] Address: [address] [place] [id number] Director: Ayesha Joya Performing Organization Address [facility]/Zipcode Phone [place] [address] Lipid panel (02/08/2018 4:03 PM CDT) Cholesterol, total 222 (H) <200 mg/dL [facility] HDL cholesterol 34 (L) >40 mg/dL [facility] [place] Triglycerides 502 (H) <150 mg/dL [facility] [place] LDL cholesterol mg/dL (calc) [facility] calculated Comment: [place] LDL cholesterol not calculated. Triglyceride levels greater than 400 mg/dL invalidate calculated LDL results. Reference range: <100 Desirable range <100 mg/dL for primary prevention; <70 mg/dL for patients with CHD or diabetic patients with > or=2 CHD risk factors. LDL-C is now calculated using the Jose calculation, which is a validated novel method providing better accuracy than the Friedewald equation in the estimation of LDL-C. Theo RODRÍGUEZ et al. ERAN. 2013;310(19): 5967-6067 (http://education.[employer]/faq/XIL007) Cholesterol/HDL 6.5 (H) <5.0 (calc) [facility] Non-HDL cholesterol 188 (H) <130 mg/dL [facility] Comment: (calc) [place] For patients with diabetes plus 1 major ASCVD risk factor, treating to a non-HDL-C goal of <100 mg/dL (LDL-C of <70 mg/dL) is considered a therapeutic option. Specimen Blood Narrative Performed At FASTING:NO [facility] FASTING: NO Resulting Agency Comment Performing Organization Information: Site ID: [id number] Name: [facility] Address: [address] [place] [phone] Director: Ayesha Joya Performing Organization Address [facility]/Zipcode [place] [address] Comprehensive metabolic panel (02/08/2018 4:03 PM CDT) Glucose 156 (H) 65 - 139 [facility] Comment: mg/dL [place] Non-fasting reference interval BUN, whole blood 23 7 - 25 mg/dL [facility] Creatinine 1.48 (H) 0.70 - 1.18 [facility] Comment: mg/dL [place] For patients >49 years of age, the reference limit for Creatinine is approximately 13% higher for people identified as -Mexican. EGFR Non-Afr. 47 (L) > OR=60 [facility] Mexican mL/min/1.73m [place] 2 EGFR 54 (L) > OR=60 [facility] Mexican mL/min/1.73m [place] 2 BUN/creatinine 16 6 - 22 [facility] ratio (calc) [place] Sodium 139 135 - 146 [facility] mmol/L [place] Potassium 4.9 3.5 - 5.3 [facility] mmol/L [place] Chloride 103 98 - 110 [facility] mmol/L [place] CO2 26 20 - 32 [facility] mmol/L [place] Calcium 9.6 8.6 - 10.3 [facility] mg/dL [place] Protein 7.4 6.1 - 8.1 [facility] g/dL [place] Albumin, S 4.6 3.6 - 5.1 [facility] g/dL [place] Globulin, total 2.8 1.9 - 3.7 [facility] g/dL (calc) [place] Albumin/globulin 1.6 1.0 - 2.5 [facility] ratio (calc) [place] Total bilirubin 0.4 0.2 - 1.2 [facility] mg/dL [place] Alkaline 88 40 - 115 U/L [facility] phosphatase [place] AST 37 (H) 10 - 35 U/L [facility] [place] ALT 38 9 - 46 U/L [facility] [place] Specimen Blood Narrative Performed At FASTING:NO [facility] FASTING: NO Resulting Agency Comment Performing Organization Information: Site ID: [id number] Name: [facility] Address: [address] [place] [phone] Director: Ayesha Joya Performing Organization Address City/State/[facility] [email or web address] Phone Number [facility] [place] [phone] after 09/17/2017 Advance Directives Patient has advance care planning documents on file. For more information, please contact:Lloyd Spears[address] [place] [address]
--- OUTSIDE RECORDS SUMMARY | 2018-09-18 16:41 | XMS REPORT ---
:1945 [facility] Address [address] [place] [address] Care Team Providers Name Role Phone Unavailable Unavailable Unavailable Problems This patient has no known problems. Allergies, Adverse Reactions, Alerts This patient has no known allergies or adverse reactions. Medications This patient has no known medications. Encounters Start End Encounter Admission Attending Care Care Encounter Date/Time Date/Time Type Type Clinicians Facility Department ID 2017-11-16 2017-11-16 Outpatient [facility] [id number] 00:00:00 00:00:00 2017-10-04 2017-10-04 Outpatient [facility] [id number] 00:00:00 00:00:00 2017-09-06 2017-09-06 Outpatient [facility] [id number] 12:52:47 12:52:47 2017-07-28 2017-07-28 Outpatient [facility] [id number] 15:29:11 15:29:11 2017-05-29 2017-05-29 Outpatient [facility] [id number] 13:31:07 13:31:07 2017-05-29 2017-05-29 Outpatient [facility] [id number] 12:50:56 12:50:56 2017-05-29 2017-05-29 Outpatient [facility] [id number] 00:00:00 00:00:00 2016-11-02 2016-11-02 Outpatient [facility] [id number] 15:18:13 15:18:13 Results Test Description Test Time Test Comments Text Results Atomic Results Result Comments TOMOSYNTHESIS + SCREEN 2018-09-14 15:27:[address] [id number] IMAGING REPORTPatient Name: DAVID PEREZAraseli of Service: [id number]: 66 Sex: F Order #: [id number] Room: CSPDOB: 11-10-1951 X-Ray Number: [id number] Record Number: [id number] Hospital Number: [id number] Physician: Eloy SHAFFER Physician: ISAIAH SHAFFERATERAL DIGITAL MAMMOGRAM WITH TOMOSYNTHESIS:CLINICAL HISTORY: Routine annual screening study; history of breast cancerin a grandmother and previous benign bilateral breast biopsiesTECHNIQUE: The craniocaudal and mediolateral views were obtained andtomosynthesis was utilizedMAMMOGRAPHER: ZIA Vang (Lio)FINDINGS: The breast parenchymal pattern is extremely dense. This lowersthe sensitivity of the examination.There are coarse calcifications noted bilaterallyThere is no evidence of dominant mass or suspicious clusters ofmicrocalcification in either breast.There appears to be a calcified oil cyst in the upper outer hemisphere onthe right side. These findings are all unchanged since the previous outsidestudy of 12 June 2017.There are small benign nodes seen in the axillary regions.IMPRESSION:No radiographic evidence of malignancy and no change since 06/12/2017BIRADS CATEGORY 2 - Benign Finding.PLEASE NOTE:1. In up to 10% of patients, cancers are not visible on mammography.2. If a suspicious lump is palpated, biopsy should not be deferredbecauseof a negative mammogram.MAMMOGRAPHY AT [facility] IS ACCREDITED BY [facility]ITALAN COLLEGE OF RADIOLOGYdfWE APPRECIATE YOUR OUTPATIENT REFERRAL.Electronically Signed By: Stanley Godfrey M.D., 09/14/2018 3:25 PMBIRADSLegally authenticated by RICO Burroughs 2018-09-14 15:25:40 CHEST XR 2 VIEWS 2018-07-02 14:53:[address] [id number] IMAGING REPORTPatient Name: Chyna PEREZ of Service: [id number]: 66 Sex: F Order #: [id number] Room: OPEDOB: 11-10-1951 X-Ray Number: [id number] Record Number: [id number] Hospital Number: [id number] Physician: Eloy SHAFFER Physician: LAI SHAFFER.07/02/2018 1:04 PMHistory: Short of breath.Technique: PA and lateral chest projections.Findings: PA and lateral views of the chest demonstrate normal heart sizeand emphysematous but focally clear lungs. No infiltrates or abnormalitiesare depicted. The osseous structures appear intact.Impression:No acute-appearing cardiopulmonary abnormalities.Electronically Signed By: Dennis Ramirez M.D., 07/02/2018 2:50 PMLegally authenticated by LILIANA Lozada 2018-07-02 14:50:50 ULTRASOUND BREAST 2018-03-13 13:07:[address] [id number] IMAGING REPORTPatient Name: Chyna PEREZ of Service: [id number]: 66 Sex: F Order #: [id number] Room: CSPDOB: 11-10-1951 X-Ray Number: [id number] Record Number: [id number] Hospital Number: [id number] Physician: JOYCE SHAFFEROrdering Physician: DANIKA SHAFFER BREAST ULTRASOUND.HISTORY: Area of palpable concern.TECHNIQUE: 4 quadrant screening ultrasound of the left breast was performedand reviewed. Assessment of the left axilla was included.CAMP DISHWASHER: ZIA Vickers, RDMSFINDINGS: There is no solid or cystic lesion seen.There is no specific abnormality in the area of palpable concern.There are no axillary or abnormalities and normal appearing lymph nodes arepresent.IMPRESSION: ZIA Vickers, RDMSBI-RADS 1: NegativeRecommendation: 12 month follow-up, or age appropriate screening interval.MAMMOGRAPHY AT [facility] IS ACCREDITED BY THE[facility]ITALAN COLLEGE OF RADIOLOGYTHANK YOU FOR YOUR OUTPATIENT REFERRALjhbElectronically Signed By: Dennis Ramirez M.D., 03/13/2018 1:05 PMBIRADSLegally authenticated by LILIANA Lozada 2018-03-13 13:05:26 BONE DENSITOMETRY 2018-02-21 10:54:[address] [id number] IMAGING REPORTPatient Name: Chyna PEREZ of Service: [id number]: 66 Sex: F Order #: [id number] Room: CSPDOB: 11-10-1951 X-Ray Number: [id number] Record Number: [id number] Hospital Number: [id number] Physician: JOYCE SHAFFEROrdering Physician: Heena SHAFFER densitometryHistory: Osteoporosis screeningNo comparison.Region of interest evaluation in the lumbar spine from L1 to L4 shows a BMDof 1.364 g/sq cm with T score of 1.2. Left femoral neck BMD is 0.958 g/sqcm with T score of -0.6. Right femoral neck BMD is 0.841 g/sq cm with Tscore of -1.4.FRAX results show 10 year probability of major osteoporotic fracture at8.8% and hip fracture at 0.9%.Impression:Osteopenia involving the right femoral neck is associated with a moderateincreased risk for pathologic fracture.Electronically Signed By: Dennis Ramirez M.D., 02/21/2018 10:52 AMLegally authenticated by LILIANA Lozada 2018-02-21 10:52:36
--- NOTE | 2018-09-18 17:35 | RAD REPORT ---
EXAM DESCRIPTION: RAD - Chest Pa And Lat (2 Views) - 09/18/2018 5:24 pm CLINICAL HISTORY: Cough, fever, congestion COMPARISON: June 2014 TECHNIQUE: PA and lateral views of the chest were obtained. FINDINGS: The lungs are clear. Interstitial markings match comparison. Heart size is normal and ce tral vasculature is within normal limits. No pleural effusion or pneumothorax seen. No acute bony f inding noted. No aortic abnormality. IMPRESSION: No acute cardiopulmonary process. No suspicious change from comparison.
[2018-09-18] MEDS ORDERED: LIDOCAINE 1% MPF 5 ML VIAL ONE (17:41)
[2018-09-18] MEDS ORDERED: IPRATROPIUM BROM 0.5MG/2.5ML ONE (17:42)
[2018-09-18] MEDS ORDERED: LEVALBUTEROL 1.25 MG/3 ML NEB ONE (17:42)
[2018-09-18] MEDS ORDERED: CEFTRIAXONE 1000 MG/VIAL ONE (17:42)
[2018-09-18] MEDS ORDERED: AZITHROMYCIN 250 MG TAB ONE (17:42)
--- NOTE | 2018-09-18 18:15 | EDPHYS ---
Physician Documentation [facility] Name: Steve Camarillo Age: 72 yrs Sex: Male : 1945 Arrival Date: 09/18/2018 Time: 16:42 Bed 18 Private MD: Edmond Herron S ED Physician Ashish Fields HPI: 09/18 17:08 This 72 yrs old Male presents to ER via Ambulatory with complaints of jong Congestion, Cough, Fever. 17:08 The patient or guardian reports airway noise, cough, difficulty breathing. Onset: The jong symptoms/episode began/occurred 3 day(s) ago. Severity of symptoms: At their worst the symptoms were mild, in the emergency department the symptoms are unchanged. Modifying factors: The symptoms are alleviated by nothing, the symptoms are aggravated by nothing. Associated signs and symptoms: The patient has no apparent associated signs or symptoms. The patient has not experienced similar symptoms in the past. Historical: - Allergies: 16:42 No Known Allergies; hj - PMHx: 16:42 Hypertension; Diabetes - NIDDM; Hyperlipidemia; hj - PSHx: 16:42 None; hj - Immunization history:: Adult Immunizations up to date. - Social history:: Smoking status: Patient uses tobacco products, smokes one pack cigarettes per day. - Family history:: not pertinent. - Ebola Screening: : No symptoms or risks identified at this time. ROS: 17:08 Constitutional: Negative for fever, chills, and weight loss, Eyes: Negative for injury, jong pain, redness, and discharge, ENT: Negative for injury, pain, and discharge, Neck: Negative for injury, pain, and swelling, Cardiovascular: Negative for chest pain, palpitations, and edema, Abdomen/GI: Negative for abdominal pain, nausea, vomiting, diarrhea, and constipation, Back: Negative for injury and pain, : Negative for injury, bleeding, discharge, and swelling, MS/Extremity: Negative for injury and deformity, Skin: Negative for injury, rash, and discoloration, Neuro: Negative for headache, weakness, numbness, tingling, and seizure, Psych: Negative for depression, anxiety, suicide ideation, homicidal ideation, and hallucinations, Allergy/Immunology: Negative for hives, rash, and allergies, Endocrine: Negative for neck swelling, polydipsia, polyuria, polyphagia, and marked weight changes, Hematologic/Lymphatic: Negative for swollen nodes, abnormal bleeding, and unusual bruising. 17:08 Respiratory: Positive for cough, wheezing, expiratory. Exam: 17:08 Constitutional: This is a well developed, well nourished patient who is awake, alert, jong and in no acute distress. Head/Face: Normocephalic, atraumatic. Eyes: Pupils equal round and reactive to light, extra-ocular motions intact. Lids and lashes normal. Conjunctiva and sclera are non-icteric and not injected. Cornea within normal limits. Periorbital areas with no swelling, redness, or edema. ENT: Nares patent. No nasal discharge, no septal abnormalities noted. Tympanic membranes are normal and external auditory canals are clear. Oropharynx with no redness, swelling, or masses, exudates, or evidence of obstruction, uvula midline. Mucous membranes moist. Neck: Trachea midline, no thyromegaly or masses palpated, and no cervical lymphadenopathy. Supple, full range of motion without nuchal rigidity, or vertebral point tenderness. No Meningismus. Chest/axilla: Normal chest wall appearance and motion. Nontender with no deformity. No lesions are appreciated. Cardiovascular: Regular rate and rhythm with a normal S1 and S2. No gallops, murmurs, or rubs. Normal PMI, no JVD. No pulse deficits. Abdomen/GI: Soft, non-tender, with normal bowel sounds. No distension or tympany. No guarding or rebound. No evidence of tenderness throughout. Back: No spinal tenderness. No costovertebral tenderness. Full range of motion. Male : Normal genitalia with no discharge or lesions. Skin: Warm, dry with normal turgor. Normal color with no rashes, no lesions, and no evidence of cellulitis. 17:08 Respiratory: mild respiratory distress is noted, Respirations: labored breathing, that is mild, asymmetrical chest movement, that is mild, Breath sounds: bronchial sounds, + upper airway congestion. wheezing: expiratory Vital Signs: 16:42 BP 173 / 69; Pulse 78; Resp 20; Temp 98.6(O); Pulse Ox 98% on R/A; Weight 102.06 kg; hj Height 5 ft. 11 in. (180.34 cm); Pain 6/10; 18:29 BP 161 / 65; Pulse 75; Resp 16; Temp 98.6; Pulse Ox 98% ; bp 16:42 Body Mass Index 31.38 (102.06 kg, 180.34 cm) MDM: 16:55 Patient medically screened. [facility] 17:08 Data reviewed: vital signs, nurses notes, lab test result(s), radiologic studies, plain [facility] films. 09/18 17:07 Order name: Flu; Complete Time: 18:08 [facility] 09/18 17:07 Order name: Chest Pa And Lat (2 Views) XRAY; Complete Time: 18:08 [facility] Administered Medications: 17:25 Drug: Rocephin (cefTRIAXone) 1 grams Route: IM; Site: right gluteus; bp 18:28 Follow up: Response: No adverse reaction bp 17:25 Drug: Zithromax 1 grams Route: PO; bp 18:28 Follow up: Response: No adverse reaction bp 17:25 Drug: Xopenex 2.5 mg Route: Inhalation; bp 17:25 Drug: AtroVENT Aerosol 0.5 mg Route: Inhalation; bp Disposition: 09/18/18 18:14 Discharged to Home. Impression: Bronchitis, not specified as acute or chronic, Tobacco abuse counseling, Tobacco use, Acute upper respiratory infection, unspecified, Type 2 diabetes mellitus. - Condition is Stable. - Discharge Instructions: Acute Bronchitis, Adult, Type 2 Diabetes Mellitus, Diagnosis, Adult, How to Use an Inhaler, Steps to Quit Smoking, Smoking Hazards, Upper Respiratory Infection, Adult, Steps to Quit Smoking, Sgtp-ta-Aphu, Cough, Adult, Type 2 Diabetes Mellitus, Diagnosis, Adult, Imdf-nh-Juto. - Prescriptions for Medrol (Rick) 4 mg Oral Tablets, Dose Pack - take 1 tablet by ORAL route as directed - follow package instructions; 1 packet. Albuterol Sulfate 90 mcg/actuation - inhale 1-2 puff by INHALATION route every 4-6 hours; 1 Inhaler. Zithromax 500 mg Oral Tablet - take 1 tablet by ORAL route once daily for 4 days; 4 tablet. - Medication Reconciliation Form, Thank You Letter, Antibiotic Education, Prescription Opioid Use form. - Follow up: Edmond Herron; When: 2 - 3 days; Reason: Recheck today's complaints, Continuance of care, Re-evaluation by your physician. - Problem is new. - Symptoms have improved. Signatures: Dispatcher [employer] EDAshish Arredondo, MD MD jong Octavio, Nahum, RN RN Cricket Cotter, RN RN bp Corrections: (The following items were deleted from the chart) 18:28 18:14 09/18/2018 18:14 Discharged to Home. Impression: Bronchitis, not specified as bp acute or chronic; Tobacco abuse counseling; Tobacco use; Acute upper respiratory infection, unspecified; Type 2 diabetes mellitus. Condition is Stable. Discharge Instructions: Acute Bronchitis, Adult, Type 2 Diabetes Mellitus, Diagnosis, Adult, How to Use an Inhaler, Steps to Quit Smoking, Smoking Hazards, Upper Respiratory Infection, Adult, Steps to Quit Smoking, Zzoo-ow-Jynn, Cough, Adult, Type 2 Diabetes Mellitus, Diagnosis, Adult, Ecil-mr-Mbqb. Prescriptions for Medrol (Rick) 4 mg Oral Tablets, Dose Pack - take 1 tablet by ORAL route as directed - follow package instructions; 1 packet, Albuterol Sulfate 90 mcg/actuation - inhale 1-2 puff by INHALATION route every 4-6 hours; 1 Inhaler, Zithromax 500 mg Oral Tablet - take 1 tablet by ORAL route once daily for 4 days; 4 tablet. and Forms are Medication Reconciliation Form, Thank You Letter, Antibiotic Education, Prescription Opioid Use. Follow up: Edmond Herron; When: 2 - 3 days; Reason: Recheck today's complaints, Continuance of care, Re-evaluation by your physician. Problem is new. Symptoms have improved. jong
--- NOTE | 2018-09-18 18:15 | ER ---
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 Transition of care: patient was not received from another setting of care. Resp Distress? No respiratory distress is noted at this time. Onset of symptoms was September 18, 2018. Risk Assessment: Do you want to hurt yourself or someone else? Patient reports no desire to harm self or others. Initial Sepsis Screen: Does the patient meet any 2 criteria? No. Patient's initial sepsis screen is negative. Does the patient have a suspected source of infection? No. Patient's initial sepsis screen is negative. Care prior to arrival: None. 16:41 Method Of Arrival: Ambulatory 16:41 Acuity: MORALES 4 hj Triage Assessment: 16:45 General: Appears in no apparent distress. comfortable, Behavior is calm, cooperative, bp appropriate for age. Pain: Denies pain. EENT: No deficits noted. Neuro: Level of Consciousness is awake, alert, obeys commands, Oriented to person, place, time, situation, Appropriate for age. Cardiovascular: No deficits noted. Respiratory: Breath sounds are coarse bilaterally. GI: No signs and/or symptoms were reported involving the gastrointestinal system. : No signs and/or symptoms were reported regarding the genitourinary system. Derm: No deficits noted. Musculoskeletal: Circulation, motion, and sensation intact. Range of motion: intact in all extremities. Historical: - Allergies: 16:42 No Known Allergies; hj - PMHx: 16:42 Hypertension; Diabetes - NIDDM; Hyperlipidemia; hj - PSHx: 16:42 None; hj - Immunization history:: Adult Immunizations up to date. - Social history:: Smoking status: Patient uses tobacco products, smokes one pack cigarettes per day. - Family history:: not pertinent. - Ebola Screening: : No symptoms or risks identified at this time. Screenin:45 Abuse screen: Denies threats or abuse. Denies injuries from another. Nutritional bp screening: No deficits noted. Tuberculosis screening: No symptoms or risk factors identified. Fall Risk None identified. Assessment: 16:45 General: SEE TRIAGE NOTE. Cardiovascular: No deficits noted. Respiratory: Airway is bp patent Respiratory effort is even, unlabored, Respiratory pattern is regular, symmetrical. 18:26 Reassessment: PT D/C HOME AMBULATORY WITH FAMILY, DX WITH BRONCHITIS. Cardiovascular: bp Capillary refill < 3 seconds Clubbing of nail beds is present Patient's skin is warm and dry. Respiratory: Breath sounds are coarse bilaterally. Vital Signs: 16:42 BP 173 / 69; Pulse 78; Resp 20; Temp 98.6(O); Pulse Ox 98% on R/A; Weight 102.06 kg; hj Height 5 ft. 11 in. (180.34 cm); Pain 6/10; 18:29 BP 161 / 65; Pulse 75; Resp 16; Temp 98.6; Pulse Ox 98% ; bp 16:42 Body Mass Index 31.38 (102.06 kg, 180.34 cm) hj ED Course: 16:42 Patient arrived in ED. mr 16:42 Edmond Herron MD is Private Physician. mr 16:42 Triage completed. hj 16:42 Arm band placed on right wrist. hj 16:45 Patient has correct armband on for positive identification. Bed in low position. Call bp light in reach. Side rails up X2. Adult w/ patient. 16:53 Cricket Wilder, NANETTE is Primary Nurse. bp 16:55 Ashish Fields MD is Attending Physician. jong 17:22 Chest Pa And Lat (2 Views) XRAY In Process Unspecified. EDMS 18:14 Edmond Herron MD is Referral Physician. jong 18:27 No provider procedures requiring assistance completed. Patient did not have IV access bp during this emergency room visit. Administered Medications: 17:25 Drug: Rocephin (cefTRIAXone) 1 grams Route: IM; Site: right gluteus; bp 18:28 Follow up: Response: No adverse reaction bp 17:25 Drug: Zithromax 1 grams Route: PO; bp 18:28 Follow up: Response: No adverse reaction bp 17:25 Drug: Xopenex 2.5 mg Route: Inhalation; bp 17:25 Drug: AtroVENT Aerosol 0.5 mg Route: Inhalation; bp Outcome: 18:14 Discharge ordered by . jong 18:27 Discharged to home ambulatory. bp 18:27 Condition: stable 18:27 Discharge instructions given to patient, Instructed on discharge instructions, follow up and referral plans. medication usage, benefits of quitting smoking, Demonstrated understanding of instructions, follow-up care, medications, Prescriptions given X 3. 18:28 Patient left the ED. bp Signatures: Dispatcher [employer] EDDC Ashish Fields MD MD cha Rivera, Mary Nahum Cunningham, RN RN Cricket Cotter RN RN bp Corrections: (The following items were deleted from the chart) 16:44 16:42 Pulse 78bpm; Resp 20bpm; Pulse Ox 96% RA; Temp 98.6F Oral; 102.06 kg; Height 5 hj ft. 11 in.; BMI: 31.3; Pain 6/10; hj
== END 2018-09-18 18:28 | disposition home or self-care (01) ==
LOC: ER 16:36
DX: J40 Bronchitis, not specified as acute or chronic (principal); E11.9 Type 2 diabetes mellitus without complications; I10 Essential (primary) hypertension; Z72.0 Tobacco use; Z71.6 Tobacco abuse counseling
CPT/HCPCS: 71046; 87804; 96372; 99284

== ENCOUNTER 2019-06-22 13:03 | Emergency (ER) | payer OTHER ==
--- OUTSIDE RECORDS SUMMARY | 2019-06-22 13:06 | XMS REPORT | Summary of Care ---
:1945 Author Organization [facility] Address [address] [place] [id number] Care Team Providers Name Role Phone Edmond Herron MD Primary Care Provider Reason for Referral (Routine) Status Reason Specialty Diagnoses / Referred By Referred To Procedures Contact Contact New Request Location Gastroenterology Diagnoses Left lower quadrant abdominal pain Kaylene Herron Procedures CONSULT/REFERRAL GASTROENTEROLOGY MD Edmond [address] [place] [address] Reason for Visit Reason Comments Follow-up Diabetes Mellitus II Pain Abdominal Pain Refill Request Encounter Details Date Type Department Care Team Description 05/09/2019 Office Visit [facility] Family Edmond Herron MD Type 2 diabetes mellitus without complication, without long-term current use of insulin (Primary Dx); [place] [id number] [address] [facility] Left lower quadrant abdominal pain; [address] Other chronic pain; [place], [place] Chronic pain syndrome [id number] Allergies Active Allergy Reactions Severity Noted Date Comments Bcnstni-Ryc-Uqo Unknown - See comments 09/19/2018 Was on zetia in past Reductase Inhibitors and had severe PVD documented as of this encounter (statuses as of 05/09/2019) Medications Medication Sig Dispensed Refills Start Date End Date Status carvedilol (COREG) Take 1.5 0 03/20/2015 Active 25 mg tablet Tabs by mouth 2 (two) times daily. lisinopril Take 20 mg 0 10/27/2015 Active (PRINIVIL,ZESTRIL) by mouth 2 20 mg tablet (two) times daily. hydralAZINE 10 mg Take 10 mg 0 Active tabletIndications: by mouth 3 take 2 tabs TID (three) times daily. Indications: take 2 tabs TID evolocumab inject 140 0 03/15/2018 Active (REPATHA mg under the SURECLICK) 140 skin. mg/mL PnIj cefUROXime 500 mg Take 1 20 tablet 0 08/08/2018 Active tabletIndications: tablet by Acute mucoid mouth 2 otitis media of (two) times left ear daily. neomycin-polymyxin Place 3 10 mL 0 08/08/2018 Active -hydrocortisone Drops in 3.5-10,000-1 both ears 4 mg/mL-unit/mL-% (four) times otic daily. suspIndications: Acute mucoid otitis media of left ear testosterone Apply 1 Pump 90 mL 2 08/08/2018 Active (AXIRON) 30 to skin mg/actuation (1.5 daily. mL) solutionIndication s: Hypogonadism in male levoFLOXacin 750 Take 1 14 tablet 0 10/18/2018 Active mg tablet by tabletIndications: mouth every Subacute otitis 24 media, unspecified (twenty-four otitis media type ) hours. traMADol 50 mg TAKE ONE 120 tablet 4 05/09/2019 Active tabletIndications: TABLET BY Chronic pain MOUTH THREE syndrome TIMES A DAY NEEDED FOR PAIN (SCALE 4-6) metFORMIN 1,000 mg Take 1 60 tablet 11 05/09/2019 Active tabletIndications: tablet by Type 2 diabetes mouth 2 mellitus without (two) times complication, daily. without long-term current use of insulin Insulin Glargine inject 70 15 Each 0 05/09/2019 Active (LANTUS SOLOSTAR Units under U-100 INSULIN) 100 the skin unit/mL (3 mL) daily. injectionIndicatio ns: Type 2 diabetes mellitus without complication, without long-term current use of insulin metFORMIN 1,000 mg Take 1 60 tablet 11 04/25/2018 Discontinued tabletIndications: tablet by 0 (Reorder) Type 2 diabetes mouth 2 mellitus without (two) times complication, daily. without long-term current use of insulin traMADol 50 mg TAKE ONE 120 tablet 4 10/25/2018 Discontinued tabletIndications: TABLET BY 0 (Reorder) Chronic pain MOUTH THREE syndrome TIMES A DAY NEEDED FOR PAIN (SCALE 4-6) LANTUS SOLOSTAR INJECT 70 15 Each 0 04/24/2019 Discontinued U-100 INSULIN 100 UNITS UNDER 0 (Reorder) unit/mL (3 mL) THE SKIN injection DAILY documented as of this encounter (statuses as of 05/09/2019) Active Problems Problem Noted Date Essential hypertension 04/20/2015 Type 2 diabetes mellitus 04/20/2015 documented as of this encounter (statuses as of 05/09/2019) Social History Tobacco Use Types Packs/Day Years Used Date Current Every Day Smoker Cigarettes 0.75 55 Smokeless Tobacco: Current User Snuff Alcohol Use Drinks/Week oz/Week Comments No Sex Assigned at Date Recorded Not on file Job Start Date Occupation Industry Not on file Not on file Not on file Travel History Travel Start Travel End No recent travel history available. documented as of this encounter Last Filed Vital Signs Vital Sign Reading Time Taken Comments Blood Pressure 122/60 05/09/2019 10:15 AM [employer]RIGATOR [employer] Pulse - - Temperature - - Respiratory Rate - - Oxygen Saturation - - Inhaled Oxygen Concentration - - Weight 101.6 kg (224 lb) 05/09/2019 10:15 AM [employer] Height - - Body Mass Index 31.24 07/18/2018 4:35 PM CDT documented in this encounter Progress Notes Edmond Herron MD - 05/09/2019 10:15 AM CST Cc: abd pain Chief Complaint Patient presents with Follow-up Diabetes Mellitus II Pain Abdominal Pain Refill Request Steve Camarillo is a 73 year old male. Here for abd pain, some rectal bleeding. Need pain Medication refill Allergies Steve is allergic to hxvsxbw-jej-udi reductase inhibitors. Medications Outpatient Medications Prior to Visit Medication Sig Dispense Refill LANTUS SOLOSTAR U-100 INSULIN 100 unit/mL (3 mL) injection INJECT 70 UNITS UNDER THE SKIN DAILY 15 Each 0 traMADol 50 mg tablet TAKE ONE TABLET BY MOUTH THREE TIMES A DAY NEEDED FOR PAIN (SCALE 4-6) 120 tablet 4 levoFLOXacin 750 mg tablet Take 1 tablet by mouth every 24 (twenty-four) hours. 14 tablet 0 cefUROXime 500 mg tablet Take 1 tablet by mouth 2 (two) times daily. 20 tablet 0 afmeifww-bqakdgsdh-ielrddpoaqimsi 3.5-10,000-1 mg/mL-unit/mL-% otic susp Place 3 Drops in both ears 4 (four) times daily. 10 mL 0 testosterone (AXIRON) 30 mg/actuation (1.5 mL) solution Apply 1 Pump to skin daily. 90 mL 2 evolocumab (REPATHA SURECLICK) 140 mg/mL PnIj inject 140 mg under the skin. metFORMIN 1,000 mg tablet Take 1 tablet by mouth 2 (two) times daily. 60 tablet 11 hydralAZINE 10 mg tablet Take 10 mg by mouth 3 (three) times daily. Indications: take 2 tabs TID lisinopril (PRINIVIL,ZESTRIL) 20 mg tablet Take 20 mg by mouth 2 (two) times daily. carvedilol (COREG) 25 mg tablet Take 1.5 Tabs by mouth 2 (two) times daily. No facility-administered medications prior to visit. Histories Past Medical History: Diagnosis Date Diabetes mellitus Esophageal reflux Hyperlipidemia Hypertension No past surgical history on file. Social History Socioeconomic History Marital status: Spouse name: Not on file Number of children: Not on file Years of education: Not on file Highest education level: Not on file Occupational History Not on file Social Needs Financial resource strain: Not on file Food insecurity: Worry: Not on file Inability: Not on file Transportation needs: Medical: Not on file Non-medical: Not on file Tobacco Use Smoking status: Current Every Day Smoker Packs/day: 0.75 Years: 55.00 Pack years: 41.25 Types: Cigarettes Smokeless tobacco: Current User Types: Snuff Substance and Sexual Activity Alcohol use: No Drug use: No Sexual activity: Not on file Lifestyle Physical activity: Days per week: Not on file Minutes per session: Not on file Stress: Not on file Relationships Social connections: Talks on phone: Not on file Gets together: Not on file Attends hoahaoism service: Not on file Active member of club or organization: Not on file Attends meetings of clubs or organizations: Not on file Relationship status: Not on file Intimate partner violence: Fear of current or ex partner: Not on file Emotionally abused: Not on file Physically abused: Not on file Forced sexual activity: Not on file Other Topics Concern Not on file Social History Narrative Lives at home with . No domestic violence. Family History Problem Relation Age of Onset No Significant Medical Problems Mother Hypertension Father Diabetes Father Review of Systems Vital Signs BP 122/60 | Wt 224 lb (101.6 kg) | BMI 31.24 kg/m Physical Exam Constitutional: He is oriented to person, place, and time. He appears well- developed and well-nourished. HENT: Head: Normocephalic and atraumatic. Right Ear: External ear normal. Left Ear: External ear normal. Eyes: Pupils are equal, round, and reactive to light. Cardiovascular: Regular rhythm and normal heart sounds. Pulmonary/Chest: Effort normal and breath sounds normal. Abdominal: Soft. Musculoskeletal: Normal range of motion. Neurological: He is alert and oriented to person, place, and time. Skin: Skin is warm. Vitals reviewed. Assessment/Plan Abd pain, rectal bleeding , GI consult Chronic pain, medication refill DMII, medication refill This visit did not involve counseling and coordination that comprised more than 50% of the visit time.Electronically signed by Edmond Herron MD at 2019 10:32 AM CSTdocumented in this encounter Plan of Treatment Health Maintenance Due Date Last Done Comments HEPATITIS C (HCV) SCREEN 1945 URINE MICROALBUMIN 11/01/1955 DTaP,Tdap,and Td Vaccines (1 - Tdap) 1956 FOOT EXAM 11/01/1963 Zoster Recombinant Vaccine (SHINGRIX) 11/01/1995 (1 of 2) LUNG CANCER SCREEN: Recommended for 2000 age 55-80 with 30 + pack year history PNEUMOCOCCAL VACCINES 65+ (2 of 2 - 2010 02/21/2017 (Declined) PPSV23) LDL-C 11/24/2016 11/25/2015 EYE EXAM 03/29/2017 03/29/2016 (Previously completed) HgA1C 01/12/2018 07/13/2017, 11/25/2015 Medicare Wellness Visit 02/21/2018 02/21/2017, 11/25/2015 CREATININE (SERUM) 07/13/2018 07/13/2017, 11/25/2015 INFLUENZA VACCINE (#1) 2018 COLONOSCOPY 02/28/2022 02/29/2012 (Previously completed) documented as of this encounter Results Not on filedocumented in this encounter Visit Diagnoses Diagnosis Type 2 diabetes mellitus without complication, without long-term current use of insulin - Primary Left lower quadrant abdominal pain Other chronic pain Chronic pain syndrome documented in this encounter Insurance Payer Benefit Plan / Subscriber ID Effective Dates Phone Address Type Group SINCERE BENITEZ [id number] 2018-Presen Medicare Adv PLUS PLUS CHOICE t HMO/POS documented as of this encounter"
--- OUTSIDE RECORDS SUMMARY | 2019-06-22 13:06 | XMS REPORT | Summary of Care ---
:1945 Author Organization [facility] Address [address] [place] [address] Care Team Providers Name Role Phone Edmond Herron MD Primary Care Provider Reason for Visit Reason Comments Refill Request Encounter Details Date Type Department Care Team Description 11/07/2018 Refill [facility] Family Medicine Edmond Herron MD Refill Request - [address] [place] [address] [place] [phone] Allergies Active Allergy Reactions Severity Noted Date Comments Euhxmvf-Wen-Ole Unknown - See comments 09/19/2018 Was on zetia in past Reductase Inhibitors and had severe PVD documented as of this encounter (statuses as of 11/07/2018) Medications Medication Sig Dispensed Refills Start Date End Date Status carvedilol (COREG) 25 Take 1.5 Tabs by 0 03/20/2015 Active mg tablet mouth 2 (two) times daily. lisinopril Take 20 mg by 0 10/27/2015 Active (PRINIVIL,ZESTRIL) 20 mouth 2 (two) mg tablet times daily. hydralAZINE 10 mg Take 10 mg by 0 Active tabletIndications: take mouth 3 (three) 2 tabs TID times daily. Indications: take 2 tabs TID evolocumab (REPATHA inject 140 mg 0 03/15/2018 Active SURECLICK) 140 mg/mL under the skin. PnIj metFORMIN 1,000 mg Take 1 tablet by 60 tablet 11 04/25/2018 Active tabletIndications: Type mouth 2 (two) 2 diabetes mellitus times daily. without complication, without long-term current use of insulin LANTUS SOLOSTAR U-100 inject 70 Units 15 Syringe 3 07/27/2018 Active INSULIN 100 unit/mL (3 under the skin mL) injection daily. cefUROXime 500 mg Take 1 tablet by 20 tablet 0 08/08/2018 Active tabletIndications: mouth 2 (two) Acute mucoid otitis times daily. media of left ear hphphqqx-msxrktfbd-rvkm Place 3 Drops in 10 mL 0 08/08/2018 Active ocortisone 3.5-10,000-1 both ears 4 mg/mL-unit/mL-% otic (four) times suspIndications: Acute daily. mucoid otitis media of left ear testosterone (AXIRON) Apply 1 Pump to 90 mL 2 08/08/2018 Active 30 mg/actuation (1.5 skin daily. mL) solutionIndications: Hypogonadism in male levoFLOXacin 750 mg Take 1 tablet by 14 tablet 0 10/18/2018 Active tabletIndications: mouth every 24 Subacute otitis media, (twenty-four) unspecified otitis hours. media type traMADol 50 mg TAKE ONE TABLET 120 tablet 4 10/25/2018 Active tabletIndications: BY MOUTH THREE Chronic pain syndrome TIMES A DAY NEEDED FOR PAIN (SCALE 4-6) documented as of this encounter (statuses as of 11/07/2018) Active Problems Problem Noted Date Essential hypertension 04/20/2015 Type 2 diabetes mellitus 04/20/2015 documented as of this encounter (statuses as of 11/07/2018) Social History Tobacco Use Types Packs/Day Years [...] of this encounter Last Filed Vital Signs Not on filedocumented in this encounter Plan of Treatment Health Maintenance Due Date Last Done Comments HEPATITIS C (HCV) SCREEN 1945 URINE MICROALBUMIN 11/01/1955 FOOT EXAM 11/01/1963 DTaP,Tdap,and Td Vaccines (1 - Tdap) 1964 Zoster Recombinant Vaccine (SHINGRIX) 11/01/1995 (1 of 2) LUNG CANCER SCREEN: Recommended for 2000 age 55-80 with 30 + pack year history PNEUMOCOCCAL VACCINES 65+ (2 of 2 - 2010 02/21/2017 (Declined) PPSV23) LDL-C 11/24/2016 11/25/2015 EYE EXAM 03/29/2017 03/29/2016 (Previously completed) HgA1C 01/12/2018 07/13/2017, 11/25/2015 Medicare Wellness Visit 02/21/2018 02/21/2017, 11/25/2015 CREATININE (SERUM) 07/13/2018 07/13/2017, 11/25/2015 INFLUENZA VACCINE 12/09/2018 02/21/2017 (Declined) COLONOSCOPY 02/28/2022 02/29/2012 (Previously completed) documented as of this encounter Results Not on filedocumented in this encounter Visit Diagnoses Diagnosis Chronic pain syndrome documented in this encounter Insurance Payer Benefit Plan / Subscriber ID Effective Phone Address Type Group Dates [facility] [place] [facility] [id number] 2018-Prese Medicare Adv PLUS PLUS CHOICE nt HMO/POS [employer] [id number] 2018-Prese Medicare Adv MEDICARE NON MEDICARE NON nt PPO CONTRACTED CONTRACTED documented as of this encounter
--- OUTSIDE RECORDS SUMMARY | 2019-06-22 13:06 | XMS REPORT | Summary of Care ---
:1945 Author Organization [facility] - [facility] Address [address] [place] [address] Care Team Providers Name Role Phone Edmond Herron MD Primary Care Provider Reason for Referral (Routine) Status Reason Specialty Diagnoses / Referred By Referred To Procedures Contact Contact New Request Location Gastroenterology Diagnoses Left lower quadrant abdominal pain Kaylene Herron Procedures CONSULT/REFERRAL GASTROENTEROLOGY MD Edmond [address] [place] [address] Reason for Visit Reason Comments Follow-up Diabetes Mellitus II Pain Abdominal Pain Refill Request Encounter Details Date Type Department Care Team Description 05/09/2019 Office Visit [facility] Family Edmond Herron MD Type 2 diabetes mellitus without complication, without long-term current use of insulin (Primary Dx); [place] [address] [address] [facility] Left lower quadrant abdominal pain; 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 Medications Outpatient Medications Prior to [...] 2 (two) times daily. 20 tablet 0 vpksizwx-dajjvubfu-csdidpbahhirtv 3.5-10,000-1 mg/mL-unit/mL-% otic susp Place 3 Drops [...] file Gets together: Not on file Attends baptism service: Not on file Active member of [...] Dates Phone Address Type Group SINCERE BENITEZ [id number] 2018-Presen Medicare Adv PLUS PLUS CHOICE t HMO/POS documented as of this encounter"
--- OUTSIDE RECORDS SUMMARY | 2019-06-22 13:06 | XMS REPORT | Summary of Care ---
:1945 Author Organization [facility] Address [address] [place] [address] Care Team Providers Name Role Phone Edmond Herron MD Primary Care Provider Reason for Visit Reason Comments Refill Request Encounter Details Date Type Department Care Team Description 04/24/2019 Refill [facility] Family Medicine Edmond Herron MD Refill Request - [address] [place] [address] [place] [phone] Allergies Active Allergy Reactions Severity Noted Date Comments Vkzvsda-Evv-Rod Unknown - See comments 09/19/2018 Was on zetia in past Reductase Inhibitors and had severe PVD documented as of this encounter (statuses as of 04/24/2019) Medications Medication Sig Dispensed Refills Start Date End Date Status carvedilol (COREG) Take 1.5 Tabs 0 03/20/2015 Active 25 mg tablet by mouth 2 (two) times daily. lisinopril Take 20 mg by 0 10/27/2015 Active (PRINIVIL,ZESTRIL) mouth 2 (two) 20 mg tablet times daily. hydralAZINE 10 mg Take 10 mg by 0 Active tabletIndications: mouth 3 take 2 tabs TID (three) times daily. Indications: take 2 tabs TID evolocumab (REPATHA inject 140 mg 0 03/15/2018 Active SURECLICK) 140 under the mg/mL PnIj skin. metFORMIN 1,000 mg Take 1 tablet 60 tablet 11 04/25/2018 Active tabletIndications: by mouth 2 Type 2 diabetes (two) times mellitus without daily. complication, without long-term current use of insulin cefUROXime 500 mg Take 1 tablet 20 tablet 0 08/08/2018 Active tabletIndications: by mouth 2 Acute mucoid otitis (two) times media of left ear daily. neomycin-polymyxin- Place 3 Drops 10 mL 0 08/08/2018 Active hydrocortisone in both ears 3.5-10,000-1 4 (four) mg/mL-unit/mL-% times daily. otic suspIndications: Acute mucoid otitis media of left ear testosterone Apply 1 Pump 90 mL 2 08/08/2018 Active (AXIRON) 30 to skin mg/actuation (1.5 daily. mL) solutionIndications : Hypogonadism in male levoFLOXacin 750 mg Take 1 tablet 14 tablet 0 10/18/2018 Active tabletIndications: by mouth Subacute otitis every 24 media, unspecified (twenty-four) otitis media type hours. traMADol 50 mg TAKE ONE 120 tablet 4 10/25/2018 Active tabletIndications: TABLET BY Chronic pain MOUTH THREE syndrome TIMES A DAY NEEDED FOR PAIN (SCALE 4-6) LANTUS SOLOSTAR INJECT 70 15 Each 0 04/24/2019 Active U-100 INSULIN 100 UNITS UNDER unit/mL (3 mL) THE SKIN injection DAILY LANTUS SOLOSTAR inject 70 15 Syringe 3 07/27/2018 04/24/2019 Discontinued U-100 INSULIN 100 Units under unit/mL (3 mL) the skin injection daily. documented as of this encounter (statuses as of 04/24/2019) Active Problems Problem Noted Date Essential hypertension 04/20/2015 Type 2 diabetes mellitus 04/20/2015 documented as of this encounter (statuses as of 04/24/2019) Social History Tobacco Use Types Packs/Day Years [...] Results Not on filedocumented in this encounter Insurance Payer Benefit Plan / Subscriber ID Effective Phone Address Type Group Dates [employer] [place] [employer] [place] [id number] 2018-Prese Medicare Adv PLUS PLUS CHOICE nt HMO/POS [employer] [id number] 2018-Prese Medicare Adv MEDICARE NON MEDICARE NON nt PPO CONTRACTED CONTRACTED documented as of this encounter
--- OUTSIDE RECORDS SUMMARY | 2019-06-22 13:06 | XMS REPORT | Summary of Care ---
:1945 Author Organization [facility] - [facility] Address [address] [place] [address] Care Team Providers Name Role Phone Edmond Herron MD Primary Care Provider Reason for Visit Reason Comments Refill Request Encounter Details Date Type Department Care Team Description 06/01/2019 Refill [facility] Family Medicine Edmond Herron MD Refill Request - [address] [place] [address] [place] [phone] Allergies Active Allergy Reactions Severity Noted Date Comments Gwtlyba-Abo-Dqs Unknown - See comments 09/19/2018 Was on zetia in past Reductase Inhibitors and had severe PVD documented as of this encounter (statuses as of 06/03/2019) Medications Medication Sig Dispensed Refills Start Date [...] SURECLICK) 140 mg/mL under the skin. PnIj cefUROXime 500 mg Take 1 tablet by 20 tablet 0 08/08/2018 Active tabletIndications: mouth 2 (two) Acute mucoid otitis times daily. media of left ear vrqgzyhf-ivkcmenqm-mppq Place 3 Drops in 10 mL 0 [...] mg TAKE ONE TABLET 120 tablet 4 05/09/2019 Active tabletIndications: BY MOUTH THREE Chronic pain syndrome TIMES A DAY NEEDED FOR PAIN (SCALE 4-6) metFORMIN 1,000 mg Take 1 tablet by 60 tablet 11 05/09/2019 Active tabletIndications: Type mouth 2 (two) 2 diabetes mellitus times daily. without complication, without long-term current use of insulin Insulin Glargine inject 70 Units 15 Each 0 05/09/2019 Active (LANTUS SOLOSTAR U-100 under the skin INSULIN) 100 unit/mL (3 daily. mL) injectionIndications: Type 2 diabetes mellitus without complication, without long-term current use of insulin documented as of this encounter (statuses as of 06/03/2019) Active Problems Problem Noted Date Essential hypertension 04/20/2015 Type 2 diabetes mellitus 04/20/2015 documented as of this encounter (statuses as of 06/03/2019) Social History Tobacco Use Types Packs/Day Years [...] ID Effective Phone Address Type Group Dates [facility] [id number] 2018-Prese Medicare Adv PLUS PLUS CHOICE nt HMO/POS [employer] [id number] 2018-Prese Medicare Adv MEDICARE NON MEDICARE NON nt PPO CONTRACTED CONTRACTED documented as of this encounter
--- OUTSIDE RECORDS SUMMARY | 2019-06-22 13:06 | XMS REPORT | Summary of Care ---
:1945 Author Organization [facility] - [facility] Address [address] [place] [address] Care Team Providers Name Role Phone Edmond Herron MD Primary Care Provider Encounter Details Date Type Department Care Team Description 04/11/2019 Orders Only [facility] Doctor Unassigned, No [address] [facility] Name [place] [id number] [address] [place] [phone] Allergies Active Allergy Reactions Severity Noted Date Comments Ewhrzbc-Omf-Ugs Unknown - See comments 09/19/2018 Was on zetia in past Reductase Inhibitors and had severe PVD documented as of this encounter (statuses as of 05/02/2019) Medications Medication Sig Dispensed Refills Start Date [...] insulin cefUROXime 500 mg Take 1 tablet by 20 tablet 0 08/08/2018 Active tabletIndications: mouth 2 (two) Acute mucoid otitis times daily. 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
--- OUTSIDE RECORDS SUMMARY | 2019-06-22 13:06 | XMS REPORT ---
:1945 [facility] Address [address] [place] [address] [address] [place] [address] Care Team Providers Name Role Phone Unavailable Unavailable Unavailable Problems This patient has no known problems. Allergies, Adverse Reactions, Alerts This patient has no known allergies or adverse reactions. Medications This patient has no known medications.
--- OUTSIDE RECORDS SUMMARY | 2019-06-22 13:06 | XMS REPORT | Summary of Care ---
:1945 Author Organization [facility] - [facility] Address [address] [place] [address] Care Team Providers Name Role Phone Edmond Herron MD Primary Care Provider Reason for Visit Reason Comments Refill Request Encounter Details Date Type Department Care Team Description 05/08/2019 Refill [facility] Family Medicine Edmond Herron MD Refill Request - [address] [place] [address] [place] [phone] Allergies Active Allergy Reactions Severity Noted Date Comments Qmoeijd-Ceu-Lzc Unknown - See comments 09/19/2018 Was on zetia in past Reductase Inhibitors and had severe PVD documented as of this encounter (statuses as of 05/08/2019) Medications Medication Sig Dispensed Refills Start Date [...] otitis times daily. media of left ear jkmcouwn-fhbgfsxqa-afbn Place 3 Drops in 10 mL 0 [...] NEEDED FOR PAIN (SCALE 4-6) LANTUS SOLOSTAR U-100 INJECT 70 UNITS 15 Each 0 04/24/2019 Active INSULIN 100 unit/mL (3 UNDER THE SKIN mL) injection DAILY documented as of this encounter (statuses as of 05/08/2019) Active Problems Problem Noted Date Essential hypertension 04/20/2015 Type 2 diabetes mellitus 04/20/2015 documented as of this encounter (statuses as of 05/08/2019) Social History Tobacco Use Types Packs/Day Years [...] ID Effective Phone Address Type Group Dates [facility] [id number] 2018-Prese Medicare Adv PLUS PLUS CHOICE nt HMO/POS [employer] [id number] 2018-Prese Medicare Adv MEDICARE NON MEDICARE NON nt PPO CONTRACTED CONTRACTED documented as of this encounter
--- NOTE | 2019-06-22 15:42 | ER ---
Nurse's Notes [facility] Name: Steve Camarillo Age: 73 yrs Sex: Male : 1945 Arrival Date: 06/22/2019 Time: 13:06 Bed 16 Private MD: Edmond Herron S Diagnosis: Acute pharyngitis Presentation: 06/21 13:21 Chief complaint: Patient states: cough, congestion and hard to breathe for about a dm5 week. worse at night. denies fever at home. Coronavirus screen: The patient has NOT traveled to a country currently being monitored by the [facility] within the last 14 days. Proceed with normal triage procedures. The patient has NOT had contact with any known and/or suspected case of coronavirus. Proceed with normal triage procedures. Ebola Screen: Patient negative for fever greater than or equal to 101.5 degrees Fahrenheit, and additional compatible Ebola Virus Disease symptoms Patient denies exposure to infectious person. Patient denies travel to an Ebola-affected area in the 21 days before illness onset. No symptoms or risks identified at this time. Initial Sepsis Screen: Does the patient meet any 2 criteria? No. Patient's initial sepsis screen is negative. Does the patient have a suspected source of infection? No. Patient's initial sepsis screen is negative. Risk Assessment: Do you want to hurt yourself or someone else? Patient reports no desire to harm self or others. 13:21 Method Of Arrival: Ambulatory dm5 13:21 Acuity: MORALES 4 dm5 15:11 Onset of symptoms is unknown. vc Triage Assessment: 14:20 Respiratory: Onset: The symptoms/episode began/occurred TWO WEEKS AGO, WORSENED LAST vc NIGHT., the patient has mild shortness of breath. Historical: - Allergies: 15:10 No Known Allergies; vc - Home Meds: 15:10 Metformin Oral [Active]; Lantus 100 unit/mL Sub-Q soln [Active]; Isosorbide Mononitrate vc Oral [Active]; carvedilol oral oral [Active]; - PMHx: 15:10 Diabetes - NIDDM; Hyperlipidemia; Hypertension; vc - PSHx: 15:10 None; vc - Immunization history:: Adult Immunizations up to date. - Social history:: Smoking status: Patient reports the use of cigarette tobacco products, smokes one pack cigarettes per day. Screenin:20 Abuse screen: Denies threats or abuse. Nutritional screening: No deficits noted. vc Tuberculosis screening: No symptoms or risk factors identified. Fall Risk None identified. Assessment: 14:20 General: Appears in no apparent distress. comfortable, ill, Behavior is calm, vc cooperative, appropriate for age. Pain: Denies pain. Neuro: Level of Consciousness is awake, alert, obeys commands, Oriented to person, place, time, situation, Appropriate for age. Cardiovascular: Capillary refill < 3 seconds. Cardiovascular: Rhythm is regular. Respiratory: Airway is patent Respiratory effort is even, unlabored, Breath sounds with wheezes bilaterally. in right upper lobe and left upper lobe. Respiratory: Reports shortness of breath on exertion GI: No signs and/or symptoms were reported involving the gastrointestinal system. : No signs and/or symptoms were reported regarding the genitourinary system. EENT: No signs and/or symptoms were reported regarding the EENT system. Derm: Skin is intact, is healthy with good turgor. Musculoskeletal: Circulation, motion, and sensation intact. Range of motion: intact in all extremities. 16:24 Reassessment: Attempted to administer ordered Rocephin IM injection and pt became jl7 belligerent, stated "I've been here 4 hours and nothing has been done. Who's dicking around, the doctors or you nurses?" Pt's attempted to calm pt down and stated "I'm sorry, he get's like that." Pt refused medication and left ER with discharge instructions and written prescription. Vital Signs: 13:21 BP 155 / 56; Pulse 83; Resp 20; Temp 98.1; Pulse Ox 98% ; Weight 99.79 kg; Height 5 ft. dm5 11 in. (180.34 cm); Pain 6/10; 14:20 BP 150 / 55; Pulse 59; Resp 18; Temp 97.8(TE); Pulse Ox 98% on R/A; mh5 15:14 BP 131 / 60; Pulse 61; Resp 17; Temp 97.6(TE); Pulse Ox 98% on R/A; mh5 13:21 Body Mass Index 30.68 (99.79 kg, 180.34 cm) dm5 ED Course: 13:06 Patient arrived in ED. mr 13:06 Edmond Herron MD is Private Physician. mr 13:25 Triage completed. dm5 13:26 Flu Sent. lt1 14:15 Tera Brooks, [facility] pm1 14:16 Ashish Fields MD is Attending Physician. pm1 14:17 Mary Gibson, RN is Primary Nurse. vc 14:20 Patient has correct armband on for positive identification. Bed in low position. Call mh5 light in reach. Adult w/ patient. Pulse ox on. NIBP on. 14:20 Patient placed on monitor technician, on pulse oximetry. vc 14:47 Chest Pa And Lat (2 Views) XRAY In Process Unspecified. EDMS 16:24 No provider procedures requiring assistance completed. Patient did not have IV access jl7 during this emergency room visit. Administered Medications: 16:17 Not Given (Patient Refused): Rocephin (cefTRIAXone) 1 grams IM once jl7 Outcome: 15:41 Discharge ordered by MD. pm1 16:23 Patient left the ED. eb 16:24 Discharged to home ambulatory. jl7 16:24 Condition: stable 16:24 Discharge instructions given to patient, family, Instructed on discharge instructions, follow up and referral plans. medication usage, Prescriptions given X 1. Signatures: Dispatcher [employer] EDPA Marcy Panda, RN RN dm5 Usman Zeny mr JackianshuTera NP DIVER'S TENDER pm1 Jenae De La Garza 5 Beatriz Robles RN RN jl7 Sayra Alcazar Leah lt1 Mary Gibson, RN RN vc Corrections: (The following items were deleted from the chart) 15:19 15:14 Pulse 61bpm; Resp 17bpm; Pulse Ox 98% RA; Temp 97.6F Temporal; mh5 mh5
--- NOTE | 2019-06-22 15:43 | EDPHYS ---
Physician Documentation [facility] Name: Steve Camarillo Age: 73 yrs Sex: Male : 1945 Arrival Date: 06/22/2019 Time: 13:06 Bed 16 Private MD: Edmond Herron S ED Physician Ashish Fields HPI: 06/21 14:16 This 73 yrs old Male presents to ER via Ambulatory with complaints of Flu pm1 Symptoms, Breathing Difficulty. 14:16 The patient or guardian reports cough, with productive sputum, that is white. Onset: pm1 The symptoms/episode began/occurred 1 week(s) ago. Severity of symptoms: in the emergency department the symptoms are actually worse. Modifying factors: The symptoms are alleviated by nebulizer treatment, last took nebulizer therapy yesterday the symptoms are aggravated by nothing. Associated signs and symptoms: Pertinent positives: sore throat, Pertinent negatives: chest pain, fever, shortness of breath. Coughing is worse at night. Took guaifenesin that improved his symptoms and was able to expectorate. Patient with history of heavy smoking in the past. His PCP usually gives him a shot of antibiotics when he has these symptoms. Historical: - Allergies: 15:10 No Known Allergies; vc - Home Meds: 15:10 Metformin Oral [Active]; Lantus 100 unit/mL Sub-Q soln [Active]; Isosorbide Mononitrate vc Oral [Active]; carvedilol oral oral [Active]; - PMHx: 15:10 Diabetes - NIDDM; Hyperlipidemia; Hypertension; vc - PSHx: 15:10 None; vc - Immunization history:: Adult Immunizations up to date. - Social history:: Smoking status: Patient reports the use of cigarette tobacco products, smokes one pack cigarettes per day. ROS: 14:16 Constitutional: Negative for fever, chills, and weight loss. pm1 14:16 Neck: Negative for injury, pain, and swelling, Cardiovascular: Negative for chest pain, palpitations, and edema. 14:16 Abdomen/GI: Negative for abdominal pain, nausea, vomiting, diarrhea, and constipation, Back: Negative for injury and pain, MS/Extremity: Negative for injury and deformity, Skin: Negative for injury, rash, and discoloration, Neuro: Negative for headache, weakness, numbness, tingling, and seizure. 14:16 ENT: Positive for sore throat, Negative for ear pain. 14:16 Respiratory: Positive for cough, with white sputum, Negative for shortness of breath, wheezing. Exam: 14:16 Constitutional: This is a well developed, well nourished patient who is awake, alert, pm1 and in no acute distress. Head/Face: Normocephalic, atraumatic. Neck: Trachea midline, no thyromegaly or masses palpated, and no cervical lymphadenopathy. Supple, full range of motion without nuchal rigidity, or vertebral point tenderness. No Meningismus. Chest/axilla: Normal chest wall appearance and motion. Nontender with no deformity. No lesions are appreciated. Cardiovascular: Regular rate and rhythm with a normal S1 and S2. No gallops, murmurs, or rubs. Normal PMI, no JVD. No pulse deficits. 14:16 Abdomen/GI: Soft, non-tender, with normal bowel sounds. No distension or tympany. No guarding or rebound. No evidence of tenderness throughout. Back: No spinal tenderness. No costovertebral tenderness. Full range of motion. Skin: Warm, dry with normal turgor. Normal color with no rashes, no lesions, and no evidence of cellulitis. MS/ Extremity: Pulses equal, no cyanosis. Neurovascular intact. Full, normal range of motion. 14:16 Respiratory: the patient does not display signs of respiratory distress, Respirations: normal, Breath sounds: are clear throughout, no bronchial sounds, no decreased breath sounds, no rales, rhonchi, no wheezing. 14:16 Neuro: Orientation: is normal, Motor: is normal, moves all fours, Sensation: is normal, no obvious gross deficits. Vital Signs: 13:21 BP 155 / 56; Pulse 83; Resp 20; Temp 98.1; Pulse Ox 98% ; Weight 99.79 kg; Height 5 ft. dm5 11 in. (180.34 cm); Pain 6/10; 14:20 BP 150 / 55; Pulse 59; Resp 18; Temp 97.8(TE); Pulse Ox 98% on R/A; mh5 15:14 BP 131 / 60; Pulse 61; Resp 17; Temp 97.6(TE); Pulse Ox 98% on R/A; mh5 13:21 Body Mass Index 30.68 (99.79 kg, 180.34 cm) dm5 MDM: 14:16 Patient medically screened. pm1 14:52 ED course: Patient with mild sore throat symptoms but refuses strep swab. pm1 15:40 Data reviewed: vital signs. Data interpreted: Pulse oximetry: on room air is 98 %. pm1 Interpretation: normal. Counseling: I had a detailed discussion with the patient and/or guardian regarding: the historical points, exam findings, and any diagnostic results supporting the discharge/admit diagnosis, lab results, radiology results, the need for outpatient follow up, to return to the emergency department if symptoms worsen or persist or if there are any questions or concerns that arise at home. 06/21 13:25 Order name: Flu; Complete Time: 14:16 dm5 06/21 14:35 Order name: Chest Pa And Lat (2 Views) XRAY; Complete Time: 16:44 pm1 Administered Medications: 16:17 Not Given (Patient Refused): Rocephin (cefTRIAXone) 1 grams IM once jl7 Disposition: 06/22/19 15:41 Discharged to Home. Impression: Acute pharyngitis. - Condition is Stable. - Discharge Instructions: Pharyngitis. - Prescriptions for Zithromax Z- Rick 250 mg Oral Tablet - take 1 tablet by ORAL route as directed for 5 days Day 1 - take two (2) tablets one time. Day 2, 3, 4 , 5 take one (1) tablet once daily.; 6 tablet. - Medication Reconciliation Form, Thank You Letter, Antibiotic Education, Prescription Opioid Use form. - Follow up: Emergency Department; When: As needed; Reason: Worsening of condition. Follow up: Private Physician; When: 2 - 3 days; Reason: Recheck today's complaints, Continuance of care, Re-evaluation by your physician. - Problem is new. - Symptoms have improved. Addendum: 06/24/2019 09:05 Co-signature as Attending Physician, Ashish Fields MD I agree with the assessment and c shin plan of care. Signatures: Dispatcher [employer] [facility] Ashish Fields MD MD cha Marinas, Patrick, ALINING INSPECTOR ALINING INSPECTOR pm1 Sayra Alcazar Vanessa RN RN Beatriz Coronel RN jl7 Corrections: (The following items were deleted from the chart) 06/21 16:23 15:41 06/22/2019 15:41 Discharged to Home. Impression: Acute pharyngitis. Condition is eb Stable. Forms are Medication Reconciliation Form, Thank You Letter, Antibiotic Education, Prescription Opioid Use. Follow up: Emergency Department; When: As needed; Reason: Worsening of condition. Follow up: Private Physician; When: 2 - 3 days; Reason: Recheck today's complaints, Continuance of care, Re-evaluation by your physician. Problem is new. Symptoms have improved. pm1
[2019-06-22] MEDS ORDERED: LIDOCAINE 1% MPF 5 ML VIAL ONE (16:04)
[2019-06-22] MEDS ORDERED: CEFTRIAXONE 1000 MG/VIAL ONE (16:04)
--- NOTE | 2019-06-22 16:06 | RAD REPORT ---
EXAM DESCRIPTION: RAD - Chest Pa And Lat (2 Views) - 06/22/2019 2:52 pm CLINICAL HISTORY: COUGH, congestion, difficulty breathing COMPARISON: Two view chest September 2018 TECHNIQUE: Frontal and lateral views of the chest were obtained. FINDINGS: The lungs are clear of a focal mass or consolidation. Interstitial markings are prominent but not clearly different. Granulomatous calcifications are present. Trachea is midline. Heart size is normal and central vasculature is within normal limits. No pleural effusion or pneumothorax seen. No acute bony finding noted. No aortic abnormality. IMPRESSION: No acute cardiopulmonary process. Chronic interstitial changes match comparison.
[2019-06-22 16:31] VITALS: O2SAT 98
[2019-06-22 16:34] VITALS: BP 131/60; TEMP 97.6
== END 2019-06-22 16:23 | disposition home or self-care (01) ==
LOC: ER 13:03
DX: J02.9 Acute pharyngitis, unspecified (principal); E11.9 Type 2 diabetes mellitus without complications; I10 Essential (primary) hypertension; E78.5 Hyperlipidemia, unspecified; F17.210 Nicotine dependence, cigarettes, uncomplicated
CPT/HCPCS: 71046; 87804; 99284

== ENCOUNTER 2021-06-20 05:00 | Emergency (ER) | payer OTHER ==
--- OUTSIDE RECORDS SUMMARY | 2021-06-20 05:08 | XMS REPORT | Clinical Summary ---
:1945 Author Organization [facility] MD [facility] Address [address] [place] [address] Care Team Providers Name Role Phone Aleksandr Herron MD Unavailable MD Fred Primary Care Provider MD Marcial Unavailable MD Candie Unavailable Allergies Active Allergy Reactions Severity Noted Date Comments Corticosteroids Other (See Comments) 10/13/2020 Incr eases the blood (Glucocorticoids) sugar Ldbujjb-Lym-Qqb Reductase Other (See Comments) 019 Was on zetia in Inhibitors past and had se manny PVD Muscle pain Was on zetia in past and had se manny PVD Medications Medication Sig Dispensed Refills Start Date End Date Status carvedilol (COREG) 25 Take 25 mg by 0 09/08/2013 Active mg tablet mouth daily. famotidine (PEPCID) 20 Take 20 mg by 0 04/21/2020 Active mg tablet mouth twice daily. insulin glargine Inject 70 Units 0 01/18/2017 Active (Lantus Solostar U-100 under the skin at Insulin) 100 unit/mL (3 bedtime. The mL) insulin pen dose he takes from 50 to 100. Mostly 70. isosorbide mononitrate Take 60 mg by 0 07/17/2020 Active (IMDUR) 60 mg 24 hr mouth daily. tablet lisinopril Take 20 mg by 0 07/17/2020 Acti ve (PRINIVIL,ZESTRIL) 20 mouth twice mg tablet daily. multivitamin Take 1 tablet by 0 Active (THERAGRAN) tablet mouth daily. traMADol (ULTRAM) 50 mg Take 50 mg by 0 07/29/2011 Active tablet mouth every 6 (six) hours as needed. ibuprofen (AdviL) 200 Take 200 mg by 0 Active mg tablet mouth every 8 (eight) hours as needed for pain. ondansetron (ZOFRAN) 8 Take 1 tablet (8 30 tablet 2 10/18/2020 Active mg tabletIndications: mg) by mouth Squamous cell carcinoma every 8 (eight) of lower lobe of right hours as needed lung for nausea or vomiting. Additional Information Patient not taking. Reason: No longer taking, Reported on 01/12/2021 albuterol (PROVENTIL,VENTOLIN) Inhale 1 vial (2.5 mg) 100 vial 3 10/13/2020 Active 2.5 mg/3 mL (0.083%) nebulizer by nebulization every 6 solutionIndications: Squamous (six) hours as needed cell carcinoma of lower lobe of for wheezing or right lung, Shortness of breath shortness of breath. Additional Information Patient not taking. Reported on 04/13/2021 prochlorperazine (Compazine) 10 Take 1 tablet (10 mg) 50 tablet 2 10/30/2020 Active mg tabletIndications: Nausea by mouth every 6 (six) and vomiting hours as needed for nausea or vomiting. Additional Information Patient not taking. Reason: Not effective, Reported on 01/12/2021 omega-3 acid ethyl esters Take 1 g by mouth 0 Active (LOVAZA) 1 g capsule daily. esomeprazole (NexIUM) 40 MG Take 1 capsule (40 mg) 30 capsule 1 11/09/2020 Active capsuleIndications: by mouth every morning. Esophagitis NOS, not otherwise specified Additional Information Patient taking differently: 40 mg oral 2 times daily before meals, Reported on 04/13/2021 morphine 10 mg/5 mL Take 1 mL (2 mg) by 100 mL 0 11/09/2020 Active solutionIndications: Neoplasm mouth every 4 (four) related pain (acute) (chronic) hours as needed for pain. Additional Information Patient not taking. Reason: Other, Reported on 01/12/2021 xyloxylin oral suspension Swish and swallow 10 480 mL 11 05/2020 Active (AMB-CMPD)Indications: Esophagitis mL every 6 (six) NOS, not otherwise specified hours as needed for mouth pain or throat pain. Additional Information Patient not taking. Reason: Side effects, Reported on 01/12/2021 amLODIPine (NORVASC) 10 mg Take 10 mg by mouth daily. 0 Active tablet hydrALAZINE (APRESOLINE) 50 mg Take 50 mg by mouth 3 0 Active tablet (three) times a day as needed. prn erythromycin (ROMYCIN) Administer 0.5 inches into 3.5 g 0 03/08/2021 Active ophthalmic the left eye at bedtime. ointmentIndications: Squamous cell carcinoma, NOS of lower lobe, lung <Right> Additional Information Patient not taking. Reported on 04/13/2021 clindamycin (Cleocin HCL) 300 mg Take 1 capsule (300 30 capsule 0 03/14/2021 Active capsuleIndications: Cellulitis mg) by mouth 3 of nose (three) times a day. Additional Information Patient not taking. Reported on 04/13/2021 mupirocin (Bactroban) 2% Apply topically to 15 g 0 2020 Active creamIndications: Cellulitis of affected area(s) twice nose daily. dexamethasone (DECADRON) 4 mg Take 1 tablet (4 mg) 30 tablet 0 04/20/2021 Active tabletIndications: Secondary by mouth twice daily. malignant neoplasm of brain Additional Information Patient taking differently: 2 mg oral Daily with breakfast, Reason: Not available, Reported on 05/17/2021 ALPRAZolam (Xanax) 0.25 Take 1 tablet 1 tablet 0 04/22/2021 Active mg tabletIndications: (0.25 mg) by Secondary malignant mouth once as neoplasm of brain needed (as needed prior to MRI) for up to 1 dose. amLODIPine (NORVASC) 10 Take 10 mg by 0 07/17/2020 0 11/24 Discontinued mg tablet mouth daily. (Therap y completed) hydrALAZINE (APRESOLINE) Take 50 mg by 0 09/27/202011/24 Discontinued 50 mg tablet mouth daily. (The rapy completed) metFORMIN (GLUCOPHAGE) Take 1,000 mg 0 09/30/2020 Discontinued 1000 mg tablet by mouth twice (Therapy daily. completed) metoclopramide (REGLAN) Take 10 mg by 0 07/02/2020 0 11/04 Discontinued (Not 10 mg tablet mouth every Jolynn licable) (four) hours as needed for nausea and vomiting. triamterene-hydroCHLOROt Take 1 capsule 0 11/04 Discontinued (Not hiazide (DYAZIDE) 37.5 by mouth Applicable) mg-25 mg per capsule daily. xyloxylin oral Swish and 480 mL 11 11/09/202011/09 Disc ontinued suspension swallow 10 mL (Reor monique) (AMB-CMPD)Indications: every 6 (six) Esophagitis NOS, not hours as otherwise specified needed for mouth pain or throat pain. lidocaine 2 % solution Swish and spit 0 11/11/2020 1 Discontinued (Not 10 mL as Applicable ) needed. Praluent Pen 75 mg/mL 0 12/02/202001/12 Discontinued (Not pnij Applicable ) omeprazole (PriLOSEC) 20 Take 20 mg by 0 Discontinued mg capsule mouth. (Therapy completed) peg 3350-electrolytes Use as 4000 mL 0 02/11/202102/12 (Golytely) directed by 236-22.74-6.74 g ordering solutionIndications: provider. Zee amoxicillin-clavulanate Take 1 tablet 14 tablet 0 02/11/202104/20 (Augmentin) 875 mg-125 (875 mg) by mg per mouth twice tabletIndications: daily for 7 Preseptal cellulitis days. sulfamethoxazole-trimeth Take 1 tablet 14 tablet 0 02/11/202102/18 oprim (Bactrim DS) 800 by mouth twice /2 021 mg-160 mg per daily for 7 tabletIndications: days. Preseptal cellulitis valACYclovir (Valtrex) Take 1 tablet 21 tablet 0 02/11/2021 1000 mg (1,000 mg) by tabletIndications: mouth 3 Herpes zoster (three) times ophthalmicus a day for 7 days. peg 3350-electrolytes Use as 4000 mL 0 03/03/202104/13 Discontinued (Golytely) directed by (Error) 236-22.74-6.74 g ordering solutionIndications: provider. Colonoscopy planned nitrofurantoin Take 1 capsule 14 capsule 0 04/18/202104/25 monohyd/m-cryst (100 mg) by (Macrobid) 100 mg mouth twice capsuleIndications: daily for 7 Urinary tract infection, days. not otherwise specified ALPRAZolam (Xanax) 0.25 Take 1 tablet 1 tablet 0 04/20/2021 0 04/20 mg tabletIndications: (0.25 mg) by Secondary malignant mouth once for neoplasm of brain 1 dose. 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 04/14/2021 Adverse effect of glucocorticoids and synthetic analog ues 04/14/2021 Hypertension 04/13/2021 Vasogenic cerebral edema 04/13/2021 Focal motor seizure 04/13/2021 Herpes zoster ophthalmicus 02/10/2021 Preseptal cellulitis 02/10/2021 Melena 02/03/2021 Overview: Added automatically from request for oc decker [id number] Secondary malignant neoplasm of brain 10/19/2020 Type 2 diabetes mellitus 10/07/2020 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 Cancer Staging: Clinical: Unsigned Encounters Date Type Specialty Care Team Description 06/18/2021 Orders Only Head and Neck Pj, Squamous cell Medical Oncology MAIRA Higginbotham carcinom a of lower lobe of right l gia (Primary Dx) 06/17/2021 Orders Only Head and Neck Pj, Medical Oncology MAIRA Higginbotham 06/11/2021 Orders Only Thoracic Medicine Anjali Mckeon, PharmD 06/11/2021 Orders Only Thoracic Medicine Elsa Mcnamara PA 06/07/2021 Office Visit Thoracic Medicine Lily Ibarra Squamous cell MD carcinoma of lo wer lobe of right l gia (Primary Dx) 06/07/2021 Telephone Thoracic Medicine Candy Manriquez, RN 05/31/2021 Telephone Thoracic Medicine Kelsi James, NANETTE 05/24/2021 Orders Only Thoracic Medicine Elsa Mcnamara PA Squamsandip s cell carcinoma of lo wer lobe of right l gia (Primary Dx) 05/24/2021 Telephone Thoracic Medicine Kelsi James, NANETTE 05/18/2021 Orders Only Radiation Oncology Selina Jacinto, PLASTIC MAKER 05/17/2021 Orders Only Radiation Oncology Alessandro Wilson, Rubena ry malignant PLASTIC MAKER neoplasm of bra in (Primary Dx) 05/14/2021 Travel 05/14/2021 Telephone Radiation Oncology Alessandro Wilson NP 05/10/2021 Orders Only Thoracic Medicine Diana Mayberry, Squamous cell FUEL EFFICIENT AUTOMOBILE DESIGNER carcinoma of lo wer lobe of right l gia (Primary Dx) 04/30/2021 Orders Only Thoracic Medicine Patricia Barton PA 04/30/2021 Orders Only Endocrinology Cathi Vilchis Type 2 diab etcandace M, PLASTIC MAKER mellitus with hyperglycemia (Primary Dx) 04/30/2021 Documentation Radiation Oncology Alessandro Wilson, HUSSAIN 04/30/2021 Orders Only Radiation Oncology Alessandro Wilson Seconda ry malignant PLASTIC MAKER neoplasm of bra in (Primary Dx) 04/27/2021 Ancillary Procedure Radiology Lily Ibarra, Cancer MD 04/23/2021 Hospital Encounter Radiation Oncology Christopher Ceja S econdary malignant MD neoplasm of bra in 04/23/2021 Orders Only Radiation Oncology Alessandro Wilson, Rubena ry malignant PLASTIC MAKER neoplasm of bra in (Primary Dx) 04/23/2021 Telephone Radiation Oncology Aye Veliz RN 04/23/2021 Documentation Radiation Oncology Selina Jacinto, HUSSAIN 04/23/2021 Telephone Radiation Oncology Aye Veliz RN 04/22/2021 Ancillary Procedure Radiology Lily Ibarra, Ruben bahenay malignant MD neoplasm of bra in 04/22/2021 Travel 04/22/2021 Orders Only Radiation Oncology Jacinto, Secondary malignant Selina, PLASTIC MAKER neoplasm of bra in (Primary Dx) 04/20/2021 Orders Only Thoracic Medicine Patricia Barton PA 04/20/2021 Orders Only Radiation Oncology Jacinto, Secondary malignant Selina, PLASTIC MAKER neoplasm of bra in (Primary Dx) 04/20/2021 Orders Only Radiation Oncology Jacinto, Secondary malignant Selina, PLASTIC MAKER neoplasm of bra in (Primary Dx) 04/19/2021 Orders Only Thoracic Medicine Alexx King, PharmD 04/19/2021 Orders Only Radiation Oncology [place], Secondary malignant Selina, HUSSAIN neoplasm of bra in (Primary Dx) 04/19/2021 Orders Only Thoracic Medicine Patricia Barton PA 04/18/2021 Telephone Thoracic Medicine Lily Ibarra MD 04/15/2021 Orders Only Intensive Care Carla Mott RN 04/13/2021 Hospital Encounter Intensive Care Holger Cassidy, Status epilepticus (Primary Dx); - Malignant hypertension; 04/15/2021 Jewel Morgan, Increased anio n gap; Leukocytosis; Estephania Garrido, Secondary yasmani gnant neoplasm of cerebrum; Vasogenic cerebral edema Wero Kaiser MD Gay, Nathan Wren MD 04/13/2021 Travel 04/12/2021 Orders Only Thoracic Medicine Alexx King, Squamous cell PharmD carcinoma of lo wer lobe of right l gia (Primary Dx) 03/23/2021 Orders Only Radiation Oncology Klever Leon Secondar y malignant M, LEATHER CRAFTER neoplasm of bra in (Primary Dx) 03/19/2021 Hospital Encounter Radiation Oncology Christopher Ceja S econdary malignant neoplasm of bra in 03/18/2021 Ancillary Procedure Radiology Chloe Shoemaker y malignant Carolin M, LEATHER CRAFTER neoplasm of b rain 03/18/2021 Travel 03/17/2021 Orders Only Radiation Oncology Yamila Hammonds, NANETTE 03/17/2021 Documentation Radiation Oncology Mary Pickett, NANETTE 03/14/2021 Emergency Emergency Medicine Valeriy Gold MD Cellul itis of nose (Primary Dx); Type 2 diabetes mellitus; Squamous cell c arcinoma of lower lobe of right lung 03/14/2021 Hospital Encounter Infusion Services Lily Ibarra, Sq uamous cell carcinoma, NOS of lower lobe, lung <Right> (Primary Dx); Squamous cell c arcinoma of lower lobe of right lung 03/14/2021 Travel 03/10/2021 POEM Appointments Anesthesiology Lily Ibarra MD 03/10/2021 Anesthesia Event Anesthesiology Ivet Umaña RN 03/10/2021 Telephone Radiation Oncology Rosalinda Mcdonald RN 03/09/2021 Clinical Support Covid Cascone, Lily, Suspected COVID-19 (Primary Dx) Jimena De La Garza MA 03/09/2021 Travel 03/08/2021 Office Visit Thoracic Medicine Lily Ibarra, Squamous cell carcinoma, NOS of lower lobe, stefani g <Right> (Primar y Dx) 03/08/2021 Hospital Encounter Lab James Burton s cell D, PA carcinoma of lo wer lobe of right l gia 03/08/2021 Telephone Radiation Oncology Rosalinda Mcdonald, NANETTE 03/08/2021 Travel 03/03/2021 Refill Gastroenterology, Alexandra Butler, Hepatology & MA Nutrition 03/03/2021 Orders Only Gastroenterology, Joanne Vogt Colonosc opy planned Hepatology & N, LEATHER CRAFTER (Primary Dx) Nutrition 02/26/2021 Orders Only Thoracic Medicine James Burton PA 02/22/2021 Orders Only Thoracic Medicine James Burton PA 02/12/2021 Orders Only Radiation Oncology Janet Jacinto, HUSSAIN carcinoma of lo wer lobe of right l gia (Primary Dx) 02/11/2021 Anesthesia Event Anesthesiology Lauren Messina, RN 02/11/2021 Documentation Donna Buckley T 02/11/2021 Orders Only Ophthalmology Ali, Amatul Preseptal Noor, PA cellulitis (Nu zully Dx) 02/11/2021 Orders Only Ophthalmology Ali, Amatul Preseptal Noor, PA cellulitis ([facility] Dx) 02/11/2021 Ophth Exam Ophthalmology Rod Schreiber MD 02/10/2021 Hospital Encounter GIM/Phase 1 Jhon, Celluliti s of face (Primary Dx); - MD Jigna Periorbital cellulitis; 02/11/2021 Margaret Chaidez, Herpes zoster ophthalmicus; Rashel Banuelos MD Preseptal cellulitis BeltranJerad page MD 02/10/2021 Travel 02/10/2021 Telephone Radiation Oncology Carolin Shoemaker APN 02/08/2021 Orders Only Thoracic Medicine James Burton, PA carcinoma of lo wer lobe of right l gia (Primary Dx) 02/07/2021 Orders Only Radiation Oncology Sahara, Secondary malignant Carolin Vaca APN neoplasm of b rain (Primary Dx) 02/05/2021 Telephone Radiation Oncology Jenae Wetzel Follow- up (Post E, MA frameless gamma knife) 02/04/2021 Documentation Radiation Oncology Christopher Ceja MD 02/04/2021 Documentation Radiation Oncology Christopher Ceja MD 02/04/2021 Documentation Radiation Oncology Christopher Ceja MD 02/04/2021 Documentation Radiation Oncology Christopher Ceja MD 02/04/2021 Documentation Radiation Oncology Christopher Ceja MD 02/04/2021 Travel 02/03/2021 Consult Gastroenterology, Kj Eddy (P rimary Dx); Hepatology & A, Esophagitis NOS , not otherwise specified; Nutrition Abdominal pain, epigastric 02/03/2021 Clinical Support Lily Sweeney, Encounter for MD observation for Jessica Ingram other suspec aleksandr exposure to biological agen t ruled out (Prim mariam Dx) 02/03/2021 Ancillary Procedure Radiology Secondar y malignant neoplasm of bra in 02/03/2021 Prep for Surgery Endoscopy Zee García (Nu zully Dx) MAIRA Abad 02/03/2021 Orders Only Gynecology Christopher Ceja, Secondary mal ignant MD neoplasm of bra in (Primary Dx) 02/03/2021 Travel 02/01/2021 Hospital Encounter Radiation Oncology Lily Ibarra MD 01/29/2021 Hospital Encounter Radiation Oncology Baltazar Ashby MD Secondary malignant Christopher Ceja, neoplasm of b eliot DIGGS 01/28/2021 Telephone Radiation Oncology Austin Givens Appointfelipa ent (Follow P, RN up telephone ca ll with Dr. Flores n 01/29/2021) 01/26/2021 Orders Only Thoracic Medicine James Burton cell Redd, PA carcinoma, NOS of lower lobe, stefani g <Right> (Primar y Dx) 01/25/2021 Infusion Infusion Services Janet Ling c ell carcinoma, NOS of lower lobe, lung <Right> (Primary Dx); Lalita Cruz RN Squamous cell c arcinoma of lower lobe of right lung 01/25/2021 Ancillary Procedure Radiology Secondar y malignant neoplasm of bra in 01/25/2021 Office Visit Thoracic Medicine Lily Ibarra Squamous cell carcinoma, NOS of lower lobe, stefani g <Right> 01/25/2021 Hospital Encounter Lab Squamous cell carcinoma, NOS of lower lobe, stefani g <Right> 01/25/2021 Orders Only Radiation Oncology Sahara, Secondary malignant Carolin M, LEATHER CRAFTER neoplasm of b rain (Primary Dx) 01/25/2021 Orders Only Thoracic Medicine Maurice Mary, PharmD 01/25/2021 Travel 01/20/2021 Orders Only Radiation Oncology [place], Secondary malignant Carolin M, LEATHER CRAFTER neoplasm of b rain (Primary Dx) 01/14/2021 Orders Only Radiation Oncology [place], Secondary malignant Carolin M, LEATHER CRAFTER neoplasm of b rain (Primary Dx) 01/12/2021 Office Visit Thoracic Medicine Lily Ibarra Squamous cell carcinoma, NOS of lower lobe, stefani g <Right> (Primar y Dx) 01/12/2021 Hospital Encounter Lab Squamous cell carcinoma, NOS of lower lobe, stefani g <Right> 01/12/2021 Orders Only Thoracic Medicine James Burton Squamous cell D, PA carcinoma, NOS of lower lobe, stefani g <Right> (Primar y Dx) 01/12/2021 Travel 01/11/2021 Ancillary Procedure Radiology Squamous cell carcinoma, NOS of lower lobe, stefani g <Right> 01/11/2021 Travel 01/06/2021 Orders Only Thoracic Medicine James Burton Squamous cell D, PA carcinoma of lo wer lobe of right l gia (Primary Dx) 01/05/2021 Orders Only Thoracic Medicine James Burton Squamous cell D, PA carcinoma of lo wer lobe of right l gia (Primary Dx) 12/28/2020 Orders Only Thoracic Medicine James Burton Squamous cell D, PA carcinoma of lo wer lobe of right l gia (Primary Dx) 12/26/2020 Refill Thoracic Medicine Lily Ibarra, Esophagi tis NOS, not otherwise specified 12/25/2020 Hospital Encounter Radiation Oncology Christopher Ceja S econdary malignant MD neoplasm of bra in 12/09/2020 Orders Only Radiation Oncology Selina Jacinto NP 12/04/2020 Hospital Encounter Radiation Oncology Lily Ibarra MD 12/04/2020 Documentation Radiation Oncology Baltazar Ashby MD 12/04/2020 Travel 12/03/2020 Hospital Encounter Radiation Oncology Lily Ibarra MD 12/03/2020 Nutrition Nutrition Lily Ibarra, No Show Zaira Rahman RD 12/03/2020 Hospital Encounter Lab Lily Ibarra Squamou s cell MD carcinoma of lo wer lobe of right l gia 12/03/2020 Travel 12/02/2020 Hospital Encounter Radiation Oncology Lily Ibarra MD 12/02/2020 Hospital Encounter Radiation Oncology Lily Ibarra MD Lee, Percy, MD 12/02/2020 Orders Only Radiation Oncology Meg Jimenes Squamou s cell MD carcinoma of lo wer lobe of right l gia (Primary Dx) 12/02/2020 Orders Only Radiation Oncology [place], Squamous cell Selina, HUSSAIN carcinoma of lo wer lobe of right l gia (Primary Dx) 12/02/2020 Travel 12/02/2020 Orders Only Radiation Oncology Emelia Trujilloa ry malignant Velazquez, PLASTIC MAKER neoplasm of bra in (Primary Dx) 12/01/2020 Hospital Encounter Radiation Oncology Lily Ibarra MD 12/01/2020 Travel 11/30/2020 Hospital Encounter Radiation Oncology Lily Ibarra MD 11/30/2020 Travel 11/27/2020 Hospital Encounter Radiation Oncology Lily Ibarra MD 11/27/2020 Travel 11/26/2020 Hospital Encounter Radiation Oncology Lily Ibarra MD 11/26/2020 Travel 11/25/2020 Hospital Encounter Radiation Oncology Lily Ibarra MD 11/25/2020 Travel 11/24/2020 Hospital Encounter Radiation Oncology Lily Ibarra MD 11/24/2020 Office Visit Thoracic Medicine James Burton, PA carcinoma of lo wer lobe of right l gia 11/24/2020 Orders Only Thoracic Medicine James Burton PA 11/24/2020 Travel 11/23/2020 Hospital Encounter Radiation Oncology Lily Ibarra MD 11/23/2020 Hospital Encounter Radiation Oncology Lily Ibarra MD Lee, Percy, MD 11/23/2020 Travel 11/21/2020 Orders Only Thoracic Medicine James Burton, PA carcinoma of lo wer lobe of right l gia (Primary Dx) 11/20/2020 Hospital Encounter Radiation Oncology Lily Ibarra MD 11/20/2020 Travel 11/19/2020 Hospital Encounter Radiation Oncology Lily Ibarra MD 11/19/2020 Travel 11/18/2020 Hospital Encounter Radiation Oncology Lily Ibarra MD 11/18/2020 Hospital Encounter Lab Lily Ibarra Squamou s cell carcinoma of lo wer lobe of right l gia 11/18/2020 Nutrition Nutrition Lily Ibarra, Zaira Rahman RD 11/18/2020 Telemedicine Thoracic Medicine Lily Ibarra Squamous cell MD carcinoma of lo wer lobe of right l gia 11/18/2020 Travel 11/18/2020 Orders Only Thoracic Medicine Anjali Mckeon, PharmD 11/17/2020 Hospital Encounter Radiation Oncology Lily Ibarra MD 11/17/2020 Hospital Encounter Radiation Oncology Lily Ibarra MD Lee, Percy, MD 11/17/2020 Travel 11/17/2020 Orders Only Thoracic Medicine James Burton PA carcinoma of lo wer lobe of right l gia (Primary Dx) 11/16/2020 Telemedicine Thoracic Medicine Lily Ibarra Squamous cell MD carcinoma of lo wer lobe of right l gia (Primary Dx) 11/16/2020 Orders Only Thoracic Medicine James Burton PA carcinoma of lo wer lobe of right l gia (Primary Dx) 11/16/2020 Telephone Radiation Oncology Zelda Hannon RN 11/13/2020 Hospital Encounter Radiation Oncology Lily Ibarra MD 11/13/2020 Travel 11/12/2020 Hospital Encounter Radiation Oncology Lily Ibarra MD 11/12/2020 Travel 11/11/2020 Hospital Encounter Radiation Oncology Lily Ibarra MD 11/11/2020 Travel 11/10/2020 Hospital Encounter Radiation Oncology Lily Ibarra MD 11/10/2020 Orders Only Thoracic Medicine Serrao, Non-small cell Gabryella cancer of lower lobe of right l gia, not otherwise specified (Prim mariam Dx) 11/10/2020 Orders Only Thoracic Medicine James Burton PA 11/10/2020 Travel 11/09/2020 Hospital Encounter Radiation Oncology Lily Ibarra MD 11/09/2020 Hospital Encounter Radiation Oncology Lily Ibarra MD Lee, Percy, MD 11/09/2020 Office Visit Thoracic Medicine Lily Ibarra, Neoplasm related pain (acute) (chronic) (Primary Dx); MD Janet cornell c arcinoma of lower lobe of right lung 11/09/2020 Hospital Encounter Lab Lily Ibarra, Squamou s cell carcinoma of lo wer lobe of right l gia 11/09/2020 Orders Only Thoracic Medicine James Burton Esophagi tis NOS, not otherwise specified (Primary Dx); D, PA Nausea and vomi ting; Abdominal pain, epigastric 11/09/2020 Orders Only Thoracic Medicine Oliva Zayas Esophagi tis NOS, Sayra, not otherwise PharmD specified 11/09/2020 Orders Only Thoracic Medicine James Burton Squamous cell D, PA carcinoma of lo wer lobe of right l gia (Primary Dx) 11/09/2020 Orders Only Thoracic Medicine Oliva Zayas Neoplasm related pain (acute) (chronic) (Primary Dx); Sayra, Esophagitis NOS , not otherwise specified PharmD 11/09/2020 Travel 11/06/2020 Hospital Encounter Radiation Oncology Lily Ibarra MD 11/06/2020 Travel 11/06/2020 Orders Only Thoracic Medicine Oliva Zayas, PharmD 11/05/2020 Hospital Encounter Radiation Oncology Nick Smith MD 11/04/2020 Consult Neurosurgery David Carcamo, Secondary mal ignant neoplasm of bra in 11/04/2020 Hospital Encounter Radiation Oncology Lily Ibarra MD 11/04/2020 Nutrition Nutrition Lily Ibarra, No Show Zaira Rahman, AB 11/04/2020 Travel 11/02/2020 Emergency Emergency Medicine Mary Brunson MD (Primary Dx) 11/02/2020 Consult Neurosurgery David Carcamo, Secondary mal ignant neoplasm of bra in 11/02/2020 Documentation Neuro-Oncology Tasneem Spain, NANETTE 11/02/2020 Orders Only Thoracic Medicine Oliva Zayas, PharmD 11/02/2020 Travel 10/30/2020 Hospital Encounter Radiation Oncology Lily Ibarra MD 10/30/2020 Hospital Encounter Radiation Oncology Lily Ibarra MD 10/30/2020 Orders Only Thoracic Medicine James Burton Nausea a nd vomiting D, PA (Primary Dx) 10/30/2020 Orders Only Thoracic Medicine James Burton PA 10/30/2020 Orders Only Thoracic Medicine James Burton 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 (Primary Dx); D, PA Nausea and vomi tinriky 10/30/2020 Telephone Radiation Oncology Selina Jacinto NP 10/30/2020 Travel 10/30/2020 Orders Only Thoracic Medicine Oliva Zayas, PharmD 10/30/2020 Orders Only Thoracic Medicine Lily Ibarra Squamous cell MD carcinoma of lo wer lobe of right l gia (Primary Dx) 10/29/2020 Hospital Encounter Radiation Oncology Lily Ibarra MD 10/29/2020 Travel 10/29/2020 Orders Only Radiation Oncology Emelia Trujillo ry malignant HUSSAIN Velazquez neoplasm of bra in (Primary Dx) 10/28/2020 Hospital Encounter Radiation Oncology Lily Ibarra MD 10/28/2020 Travel 10/27/2020 Hospital Encounter Radiation Oncology Lily Ibarra MD 10/27/2020 Travel 10/26/2020 Ancillary Procedure Radiology Lily Ibarra, Cancer 10/26/2020 Ancillary Procedure Radiology Lily Ibarra Cancer 10/26/2020 Ancillary Procedure Radiology Lily Ibarra Cancer 10/26/2020 Hospital Encounter Infusion Services Lily Ibarra, Sq uamous cell carcinoma of lower [place], lobe of right l gia Ruben Nolandi, (Primary Dx) RN 10/26/2020 Hospital Encounter Radiation Oncology Lily Ibarra MD Lee, Percy, MD 10/26/2020 Office Visit Thoracic Medicine Lily Ibarra 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 10/26/2020 Hospital Encounter Radiation Oncology Lily Ibarra MD 10/26/2020 Hospital Encounter Lab Lily Ibarra Squamou s cell carcinoma of lo wer lobe of right l gia 10/26/2020 Orders Only Thoracic Medicine Oliva Zayas, PharmD 10/26/2020 Orders Only Thoracic Medicine James Burton PA 10/26/2020 Travel 10/26/2020 Orders Only Head and Neck [place], Medical Oncology Nikky Cruz 10/23/2020 Hospital Encounter Radiation Oncology Lily Ibarra MD 10/23/2020 Travel 10/22/2020 Hospital Encounter Radiation Oncology Lily Ibarra MD 10/22/2020 Hospital Encounter Rush Pompa MD Jacome, Joshua D, PA 10/22/2020 Telephone Radiation Oncology Selina Jacinto NP 10/22/2020 Travel 10/21/2020 Hospital Encounter Radiation Oncology Lily Ibarra MD 10/21/2020 Nutrition Nutrition Lily Ibarra MD Piper, Vicki T, RD 10/21/2020 Travel 10/21/2020 Orders Only Head and Neck [place], Squamous cell Medical Oncology Nikky A carcinoma o f lower lobe of right l gia (Primary Dx) 10/21/2020 Documentation Thoracic Medicine Nikky Urban 10/20/2020 Hospital Encounter Radiation Oncology Lily Ibarra MD 10/20/2020 Travel 10/19/2020 Hospital Encounter Infusion Services James Burton Sq uamous cell [place], PA carcinoma of lower [place], [place], lobe of righ t lung RN (Primary Dx) 10/19/2020 Hospital Encounter Lab Lily Ibarra Squamou s cell carcinoma of lo wer lobe of right l gia 10/19/2020 Orders Only Thoracic Medicine Oliva Zayas, PharmD 10/19/2020 Orders Only Thoracic Medicine James Burton PA 10/19/2020 Travel 10/19/2020 Orders Only Radiation Oncology Emelia Trujillo ry malignant HUSSAIN Velazquez neoplasm of bra in (Primary Dx) 10/16/2020 Hospital Encounter Rush Pompa MD 10/16/2020 Hospital Encounter Radiation Oncology Christopher Ceja S econdary malignant neoplasm of brain (Primary Dx); Squamous cell c arcinoma of lower lobe of right lung 10/16/2020 Documentation Radiation Oncology Emelia Trujillo NP 10/16/2020 Travel 10/16/2020 Documentation Radiation Oncology Baltazar Ashby MD 10/15/2020 Hospital Encounter Radiation Oncology Christopher Ceja S quamous cell carcinoma of lo wer lobe of right l gia 10/14/2020 Orders Only Thoracic Medicine Maurice Mary, PharmRedd 10/13/2020 Hospital Encounter Radiation Oncology Baltazar Ashby MD 10/13/2020 Office Visit Thoracic Medicine Lily Ibarra 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, not otherwise specified; Squamous cell c arcinoma of lower lobe of right lung 10/13/2020 Hospital Encounter Radiation Oncology Lily Ibarra MD Lee, Percy, MD 10/13/2020 Hospital Encounter Radiation Oncology Lily Ibarra MD 10/13/2020 Orders Only Thoracic Medicine Maurice Mary Squamou s cell carcinoma of lower lobe of right lung (Primary Dx); PharmD Shortness of br eath 10/13/2020 Orders Only Thoracic Medicine James Burton Squamous cell D, PA carcinoma of lo wer lobe of right l gia (Primary Dx) 10/13/2020 Documentation Radiation Oncology Baltazar Ashby MD 10/13/2020 Orders Only Radiation Oncology Baltazar Ashby MD Squamou s cell carcinoma of lo wer lobe of right l gia (Primary Dx) 10/13/2020 Documentation Radiation Oncology Baltazar Ashby MD 10/13/2020 Travel 10/13/2020 Orders Only Thoracic Medicine James Burton Squamous cell D, PA carcinoma of lo wer lobe of right l gia (Primary Dx) 10/13/2020 Orders Only Head and Neck Alexx King, Squamous cell Medical Oncology PharmD carcinoma o f lower lobe of right l gia (Primary Dx) 10/12/2020 Orders Only Thoracic Medicine James Burton Squamous cell D, PA carcinoma of lo wer lobe of right l gia (Primary Dx) 10/08/2020 Ancillary Procedure Radiology James Burton Non-sm all cell D, PA cancer of lower lobe of right l gia, not otherwise specified 10/08/2020 Travel 10/08/2020 Orders Only Thoracic Medicine James Burton D, PA 10/07/2020 Hospital Encounter Pulmonology Amina Ashby FNP Non-sm all cell cancer of lower lobe of right l gia, not otherwise specified 10/07/2020 Ancillary Procedure Radiology Non-smal l cell cancer of lower lobe of right l gia, not otherwise specified 10/07/2020 Documentation Thoracic Medicine Dulce Maria Lujan 10/07/2020 Travel 10/05/2020 Hospital Encounter Lab Amina Ashby FNP Non-sm all cell cancer of lower lobe of right l gia, not otherwise specified 10/05/2020 Office Visit Thoracic Medicine Baltazar Ashby MD 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 (Primary Dx) 10/05/2020 Office Visit Thoracic Medicine Nida Dillard Non-small cell T, PA cancer of lower [place]asc[place]ily hinojosa, lobe of right lung, MD not otherwise Karl Barriga specified (Pr dave Reagan MD Dx) 10/05/2020 Office Visit Thoracic Medicine Lily Ibarra Non-smal l cell cancer of lower lobe of right l gia, not otherwise specified (Prim mariam Dx) 10/05/2020 [facility] Patient Access Services 10/05/2020 Orders Only Thoracic Medicine James Burton Squamous cell D, PA carcinoma of lo wer lobe of right l gia (Primary Dx) 10/05/2020 Orders Only Thoracic Medicine James Burton Non-smal l cell D, PA cancer of lower lobe of right l gia, not otherwise specified (Prim mariam Dx) 10/05/2020 Orders Only Thoracic Medicine James Burton Non-smal l cell D, PA cancer of lower lobe of right l gia, not otherwise specified (Prim mariam Dx) 10/05/2020 Orders Only Thoracic Medicine Le Non-small cell Dulce Maria Y cancer of lower lobe of right l gia, not otherwise specified (Prim mariam Dx) 10/05/2020 Travel 10/03/2020 Clinical Support Covid Lily Ibarra, Encounter for observation for Sharan Marshall other suspec ted RN exposure to biological agen t ruled out (Prim mariam Dx) 10/03/2020 Travel 10/02/2020 Ancillary Procedure Radiology Lily Ibarra Cancer 10/02/2020 Ancillary Procedure Radiology Lily Ibarra Cancer 10/02/2020 Orders Only Thoracic Medicine Amina Ashby FNP Non-sma ll cell cancer of lower lobe of right l gia, not otherwise specified (Prim mariam Dx) 10/02/2020 Lab Requisition Nahum Montoya MD [place], Solange Grace MD after 06/20/2020 Medical History Medical History Date Comments Hypertension 1984 Hearing loss 2018 Asbestosis 1969 Fatty liver 2018 Gastric reflux 1979 Kidney failure 2017 Anemia 2020 Diabetes mellitus 1984 Family History Medical History Relation Name Comments Lung cancer Mother Patricia Camarillo Relation Name Status Comments Mother Patricia Camarillo Social History Tobacco Use Types Packs/Day Years Used Date Current Every Day Smoker Cigarettes 1.5 59 Sta rted: 1961 Smokeless Tobacco: Never Used Tobacco Cessation: Ready to Quit: Yes; C ounseling Given: Yes Comments: decreased to 10 cig/day Alcohol Use Standard Drinks/Week Comments Not Currently 0 (1 standard drink = 0.6 oz pure alcoho l) Years ago weekend Alcohol Habits Answer Date Recorded How often do you have a drink containing alcohol? Not asked How many drinks containing alcohol do you have on a Not aske d typical day when you are drinking? How often do you have six or more drinks on one Not asked occasion? Comment: Years ago weekend 10/05/2020 Sex Assigned at Date Recorded Male 10/01/2020 1:47 PM CDT Job Start Date Occupation Industry Not on file Not on file Not on file Obstetrics History Last Filed Vital Signs Vital Sign Reading Time Taken Comments Blood Pressure 146/76 04/15/2021 4:00 AM JIGSAW OPERATOR Pulse 86 04/15/2021 4:00 AM JIGSAW OPERATOR Temperature 36.9 C (98.4 F) 04/15/2021 4:00 AM JIGSAW OPERATOR Respiratory Rate 13 04/15/2021 4:00 AM JIGSAW OPERATOR Oxygen Saturation 98% 04/15/2021 4:00 AM JIGSAW OPERATOR Inhaled Oxygen Concentration - - Weight 78.2 kg (172 lb 6.4 oz) 04/14/2021 1:48 AM JIGSAW OPERATOR Height 171 cm (5' 7.32") 04/13/2021 4:30 PM JIGSAW OPERATOR Body Mass Index 26.74 04/13/2021 4:30 PM JIGSAW OPERATOR Plan of Treatment Date Type Specialty Care Team Description 03/11/2021 Anesthesia Event Endoscopy Jenae Begum MD [address] [place], [place] [address] (Wo rk) 06/22/2021 Ancillary Procedure Radiology Jeremías Leon, LEATHER CRAFTER [address] [place], [place] [address] (Wo rk) 06/25/2021 Telemedicine Endocrinology Elena Gonzalez MD [address] [place] [address] Sara Conde MD [address] [place] [address] 07/01/2021 Appointment Radiation Oncology Christopher Ceja MD [address] [place] [address] (Wo rk) 06/28/2022 Hospital Encounter Endoscopy Kj Eddy MD [address] [place], [place] [address] (Wo rk) Name Priority Associated Diagnoses Date/Time DIAGNOSTIC FLEXIBLE COLONOSCOPY PROXIMAL TO [place] [facility] SPLENIC FLEXURE DIAGNOSTIC UPPER GASTROINTESTINAL ENDOSCOPY [place] [facility] Health Maintenance Due Date Last Done Comments COVID-19 Vaccination (1) 1957 Procedures Procedure Name Priority Date/Time Associated Comments Diagnosis MRI BRAIN W WO CONTRAST Routine 04/22/2021 1:52 Secondary Results for this PM JIGSAW OPERATOR malignant neoplasm procedure are in of brain the results section. CALCIUM IONIZED, VENOUS AM 04/15/2021 1:21 Results for this AM [employer]IGSAW OPERATOR procedure are i n the results section. .GLOMERULAR FILTRATION AM 04/15/2021 1:21 R esults for this RATE AM [employer]IGSAW OPERATOR procedure are i n the results section. SERUM CREATININE AM 04/15/2021 1:21 Results for this AM JIGSAW OPERATOR procedure are i n the results section. ELECTROLYTE PANEL AM 04/15/2021 1:21 Result s for this AM [employer]IGSAW OPERATOR procedure are i n the results section. BLOOD UREA NITROGEN AM 04/15/2021 1:21 Resu lts for this AM [employer]IGSAW OPERATOR procedure are i n the results section. GLUCOSE LEVEL AM 04/15/2021 1:21 Results fo r this AM [employer]IGSAW OPERATOR procedure are i n the results section. MANUAL DIFFERENTIAL STAT 04/15/2021 1:21 Resu lts for this AM [employer]IGSAW OPERATOR procedure are i n the results section. Results CBC STAT 04/15/2021 1:21 Results for this AM JIGSAW OPERATOR procedure are i n the results section. ARTERIAL BLOOD GAS Timed Study 04/15/2021 1:21 Resul ts for this AM JIGSAW OPERATOR procedure are i n the results section. FIBRINOGEN ACTIVITY AM 04/15/2021 1:21 Resu lts for this AM [employer]IGSAW OPERATOR procedure are i n the results section. APTT AM 04/15/2021 1:21 Results for this AM JIGSAW OPERATOR procedure are i n the results section. PROTHROMBIN TIME AM 04/15/2021 1:21 Results for this AM [employer]IGSAW OPERATOR procedure are i n the results section. BASIC METABOLIC PANEL, AM 04/15/2021 1:21 CALCIUM IONIZED AM JIGSAW OPERATOR COMPLETE BLOOD COUNT W/ AM 04/15/2021 1:21 DIFFERENTIAL AM JIGSAW OPERATOR POC GLUCOSE SCREEN Routine 04/14/2021 10:40 Resul ts for this PM [employer]IGSAW OPERATOR procedure are i n the results section. POC GLUCOSE SCREEN Routine 04/14/2021 5:39 Resul ts for this PM JIGSAW OPERATOR procedure are i n the results section. ARTERIAL BLOOD GAS Routine 04/14/2021 5:34 Resul ts for this PM [employer]IGSAW OPERATOR procedure are i n the results section. GENERAL LABORATORY ADD Now 04/14/2021 2:51 R esults for this ON TEST PM JIGSAW OPERATOR procedure are i n the results section. POC GLUCOSE SCREEN Routine 04/14/2021 11:04 Resul ts for this AM JIGSAW OPERATOR procedure are i n the results section. POC GLUCOSE SCREEN Routine 04/14/2021 9:22 Resul ts for this AM JIGSAW OPERATOR procedure are i n the results section. POC GLUCOSE SCREEN Routine 04/14/2021 5:21 Resul ts for this AM [employer]IGSAW OPERATOR procedure are i n the results section. HEMOGLOBIN A1C STAT 04/14/2021 12:59 Results f or this AM JIGSAW OPERATOR procedure are i n the results section. CALCIUM IONIZED, VENOUS AM 04/14/2021 12:59 Results for this AM JIGSAW OPERATOR procedure are i n the results section. .GLOMERULAR FILTRATION AM 04/14/2021 12:59 R esults for this RATE AM JIGSAW OPERATOR procedure are i n the results section. SERUM CREATININE AM 04/14/2021 12:59 Results for this AM JIGSAW OPERATOR procedure are i n the results section. ELECTROLYTE PANEL AM 04/14/2021 12:59 Result s for this AM JIGSAW OPERATOR procedure are i n the results section. BLOOD UREA NITROGEN AM 04/14/2021 12:59 Resu lts for this AM JIGSAW OPERATOR procedure are i n the results section. GLUCOSE LEVEL AM 04/14/2021 12:59 Results fo r this AM JIGSAW OPERATOR procedure are i n the results section. MANUAL DIFFERENTIAL STAT 04/14/2021 12:59 Resu lts for this AM JIGSAW OPERATOR procedure are i n the results section. Results CBC STAT 04/14/2021 12:59 Results for this AM JIGSAW OPERATOR procedure are i n the results section. FIBRINOGEN ACTIVITY AM 04/14/2021 12:59 Resu lts for this AM JIGSAW OPERATOR procedure are i n the results section. APTT AM 04/14/2021 12:59 Results for this AM JIGSAW OPERATOR procedure are i n the results section. PROTHROMBIN TIME AM 04/14/2021 12:59 Results for this AM JIGSAW OPERATOR procedure are i n the results section. BASIC METABOLIC PANEL, AM 04/14/2021 12:59 CALCIUM IONIZED AM JIGSAW OPERATOR COMPLETE BLOOD COUNT W/ AM 04/14/2021 12:59 DIFFERENTIAL AM JIGSAW OPERATOR VRE CULTURE Now 04/14/2021 12:05 Results for this AM JIGSAW OPERATOR procedure are i n the results section. POC GLUCOSE SCREEN Routine 04/13/2021 11:02 Resul ts for this PM JIGSAW OPERATOR procedure are i n the results section. POC GLUCOSE SCREEN Routine 04/13/2021 5:46 Resul ts for this PM JIGSAW OPERATOR procedure are i n the results section. EEG STAT 04/13/2021 5:24 Results for this PM JIGSAW OPERATOR procedure are i n the results section. OSI SHOULDER Routine 04/13/2021 2:56 Cancer Results for this PM JIGSAW OPERATOR procedure are i n the results section. HC CRITICAL CARE 1ST Routine 04/13/2021 12:53 Res ults for this 30-74 MIN PM JIGSAW OPERATOR procedure are i n the results section. OR CRITICAL CARE, E/M Routine 04/13/2021 12:53 Re sults for this 30-74 MINUTES PM JIGSAW OPERATOR procedure are in the results section. COVID-19 (SARS-COV-2) Now 04/13/2021 12:38 Re sults for this ASYMPTOMATIC-LT PM JIGSAW OPERATOR procedure ar e in the results section. CT HEAD WO CONTRAST Routine 04/13/2021 12:19 Resu lts for this PM JIGSAW OPERATOR procedure are i n the results section. URINALYSIS MICROSCOPIC Routine 04/13/2021 12:12 R esults for this PM JIGSAW OPERATOR procedure are i n the results section. URINALYSIS WITH Now 04/13/2021 12:12 Results for this MICROSCOPIC IF PM JIGSAW OPERATOR procedure are in INDICATED the results section. URINE CULTURE STAT 04/13/2021 12:12 Results fo r this PM JIGSAW OPERATOR procedure are i n the results section. CLOT EXPIRATION DATE STAT 04/13/2021 12:09 Res ults for this PM JIGSAW OPERATOR procedure are i n the results section. TMP INTERPRETATION STAT 04/13/2021 12:09 Resul ts for this ANTIBODY SCREEN PM JIGSAW OPERATOR procedure ar e in NEGATIVE the results section. ANTIBODY SCREEN STAT 04/13/2021 12:09 Results for this PM JIGSAW OPERATOR procedure are i n the results section. ABORH STAT 04/13/2021 12:09 Results for this PM JIGSAW OPERATOR procedure are i n the results section. FRACTIONATED BILIRUBIN STAT 04/13/2021 12:09 R esults for this PM JIGSAW OPERATOR procedure are i n the results section. TOTAL PROTEIN STAT 04/13/2021 12:09 Results fo r this PM JIGSAW OPERATOR procedure are i n the results section. ASPARTATE STAT 04/13/2021 12:09 Results for this AMINOTRANSFERASE PM JIGSAW OPERATOR procedure a re in the results section. ALANINE STAT 04/13/2021 12:09 Results for this AMINOTRANSFERASE PM JIGSAW OPERATOR procedure a re in the results section. ALKALINE PHOSPHATASE STAT 04/13/2021 12:09 Res ults for this PM JIGSAW OPERATOR procedure are i n the results section. ALBUMIN LEVEL STAT 04/13/2021 12:09 Results fo r this PM JIGSAW OPERATOR procedure are i n the results section. CALCIUM LEVEL TOTAL STAT 04/13/2021 12:09 Resu lts for this PM JIGSAW OPERATOR procedure are i n the results section. .GLOMERULAR FILTRATION STAT 04/13/2021 12:09 R esults for this RATE PM JIGSAW OPERATOR procedure are i n the results section. SERUM CREATININE STAT 04/13/2021 12:09 Results for this PM JIGSAW OPERATOR procedure are i n the results section. ELECTROLYTE PANEL STAT 04/13/2021 12:09 Result s for this PM JIGSAW OPERATOR procedure are i n the results section. BLOOD UREA NITROGEN STAT 04/13/2021 12:09 Resu lts for this PM JIGSAW OPERATOR procedure are i n the results section. GLUCOSE LEVEL STAT 04/13/2021 12:09 Results fo r this PM JIGSAW OPERATOR procedure are i n the results section. MANUAL DIFFERENTIAL STAT 04/13/2021 12:09 Resu lts for this PM JIGSAW OPERATOR procedure are i n the results section. Results CBC STAT 04/13/2021 12:09 Results for this PM JIGSAW OPERATOR procedure are i n the results section. TYPE AND SCREEN STAT 04/13/2021 12:09 PM JIGSAW OPERATOR APTT STAT 04/13/2021 12:09 Results for this PM JIGSAW OPERATOR procedure are i n the results section. PROTHROMBIN TIME STAT 04/13/2021 12:09 Results for this PM JIGSAW OPERATOR procedure are i n the results section. PHOSPHORUS LEVEL STAT 04/13/2021 12:09 Results for this PM JIGSAW OPERATOR procedure are i n the results section. MAGNESIUM LEVEL STAT 04/13/2021 12:09 Results for this PM JIGSAW OPERATOR procedure are i n the results section. COMPREHENSIVE METABOLIC STAT 04/13/2021 12:09 PANEL PM JIGSAW OPERATOR COMPLETE BLOOD COUNT W/ STAT 04/13/2021 12:09 DIFFERENTIAL PM JIGSAW OPERATOR BLOODCULTURE STAT 04/13/2021 12:09 Results for this PM JIGSAW OPERATOR procedure are i n the results section. POC TROPONIN I Routine 04/13/2021 12:01 Results f or this PM JIGSAW OPERATOR procedure are i n the results section. POC VENOUS BLOOD GAS + Routine 04/13/2021 11:59 R esults for this LACTATE AM JIGSAW OPERATOR procedure are i n the results section. POC GLUCOSE SCREEN Routine 04/13/2021 11:56 Resul ts for this AM JIGSAW OPERATOR procedure are i n the results section. MRI BRAIN W WO CONTRAST Routine 03/18/2021 4:02 Secondary Results for this PM JIGSAW OPERATOR malignant neoplasm procedure are in of brain the results section. FRACTIONATED BILIRUBIN Now 03/14/2021 2:38 R esults for this PM JIGSAW OPERATOR procedure are i n the results section. TOTAL PROTEIN Now 03/14/2021 2:38 Results fo r this PM JIGSAW OPERATOR procedure are i n the results section. ASPARTATE Now 03/14/2021 2:38 Results for this AMINOTRANSFERASE PM JIGSAW OPERATOR procedure a re in the results section. ALANINE Now 03/14/2021 2:38 Results for this AMINOTRANSFERASE PM JIGSAW OPERATOR procedure a re in the results section. ALKALINE PHOSPHATASE Now 03/14/2021 2:38 Res ults for this PM JIGSAW OPERATOR procedure are i n the results section. ALBUMIN LEVEL Now 03/14/2021 2:38 Results fo r this PM JIGSAW OPERATOR procedure are i n the results section. CALCIUM LEVEL TOTAL Now 03/14/2021 2:38 Resu lts for this PM JIGSAW OPERATOR procedure are i n the results section. .GLOMERULAR FILTRATION Now 03/14/2021 2:38 R esults for this RATE PM JIGSAW OPERATOR procedure are i n the results section. SERUM CREATININE Now 03/14/2021 2:38 Results for this PM JIGSAW OPERATOR procedure are i n the results section. ELECTROLYTE PANEL Now 03/14/2021 2:38 Result s for this PM JIGSAW OPERATOR procedure are i n the results section. BLOOD UREA NITROGEN Now 03/14/2021 2:38 Resu lts for this PM JIGSAW OPERATOR procedure are i n the results section. GLUCOSE LEVEL Now 03/14/2021 2:38 Results fo r this PM JIGSAW OPERATOR procedure are i n the results section. PHOSPHORUS LEVEL Now 03/14/2021 2:38 Results for this PM JIGSAW OPERATOR procedure are i n the results section. MAGNESIUM LEVEL Now 03/14/2021 2:38 Results for this PM JIGSAW OPERATOR procedure are i n the results section. COMPREHENSIVE METABOLIC Now 03/14/2021 2:38 PANEL PM JIGSAW OPERATOR MANUAL DIFFERENTIAL STAT 03/14/2021 2:37 Resu lts for this PM JIGSAW OPERATOR procedure are i n the results section. Results CBC STAT 03/14/2021 2:37 Results for this PM JIGSAW OPERATOR procedure are i n the results section. COMPLETE BLOOD COUNT W/ Now 03/14/2021 2:37 DIFFERENTIAL PM JIGSAW OPERATOR COVID-19 Routine 03/09/2021 1:45 Suspected COVID-19 Resul ts for this (SARS-COV-2) PCR PM JIGSAW OPERATOR procedure a re in ASYMPTOMATIC the results section. FRACTIONATED BILIRUBIN Routine 03/08/2021 1:32 Squamous cell Results for this PM JIGSAW OPERATOR carcinoma, NOS of procedure are in lower lobe, lung the results <Right> section. TOTAL PROTEIN Routine 03/08/2021 1:32 Squamous cell Results f or this PM JIGSAW OPERATOR carcinoma, NOS of procedure are in lower lobe, lung the results <Right> section. ASPARTATE Routine 03/08/2021 1:32 Squamous cell Results fo r this AMINOTRANSFERASE PM JIGSAW OPERATOR carcinoma, NOS of proced ure are in lower lobe, lung the results <Right> section. ALANINE Routine 03/08/2021 1:32 Squamous cell Results fo r this AMINOTRANSFERASE PM JIGSAW OPERATOR carcinoma, NOS of proced ure are in lower lobe, lung the results <Right> section. ALKALINE PHOSPHATASE Routine 03/08/2021 1:32 Squamous cell Re sults for this PM JIGSAW OPERATOR carcinoma, NOS of procedure are in lower lobe, lung the results <Right> section. ALBUMIN LEVEL Routine 03/08/2021 1:32 Squamous cell Results f or this PM JIGSAW OPERATOR carcinoma, NOS of procedure are in lower lobe, lung the results <Right> section. CALCIUM LEVEL TOTAL Routine 03/08/2021 1:32 Squamous cell Res ults for this PM JIGSAW OPERATOR carcinoma, NOS of procedure are in lower lobe, lung the results <Right> section. .GLOMERULAR FILTRATION Routine 03/08/2021 1:32 Squamous cell Results for this RATE PM JIGSAW OPERATOR carcinoma, NOS of procedure are in lower lobe, lung the results <Right> section. SERUM CREATININE Routine 03/08/2021 1:32 Squamous cell Result s for this PM JIGSAW OPERATOR carcinoma, NOS of procedure are in lower lobe, lung the results <Right> section. ELECTROLYTE PANEL Routine 03/08/2021 1:32 Squamous cell Resul ts for this PM JIGSAW OPERATOR carcinoma, NOS of procedure are in lower lobe, lung the results <Right> section. BLOOD UREA NITROGEN Routine 03/08/2021 1:32 Squamous cell Res ults for this PM JIGSAW OPERATOR carcinoma, NOS of procedure are in lower lobe, lung the results <Right> section. GLUCOSE LEVEL Routine 03/08/2021 1:32 Squamous cell Results f or this PM JIGSAW OPERATOR carcinoma, NOS of procedure are in lower lobe, lung the results <Right> section. MANUAL DIFFERENTIAL Routine 03/08/2021 1:32 Squamous cell Res ults for this PM JIGSAW OPERATOR carcinoma, NOS of procedure are in lower lobe, lung the results <Right> section. Results CBC Routine 03/08/2021 1:32 Squamous cell Results fo r this PM JIGSAW OPERATOR carcinoma, NOS of procedure are in lower lobe, lung the results <Right> section. THYROID STIMULATING Routine 03/08/2021 1:32 Squamous cell Res ults for this HORMONE PM JIGSAW OPERATOR carcinoma of lower procedure are in lobe of right lung the resul ts section. FREE THYROXINE Routine 03/08/2021 1:32 Squamous cell Results for this PM JIGSAW OPERATOR carcinoma of lower procedure are in lobe of right lung the resul ts section. MAGNESIUM LEVEL Routine 03/08/2021 1:32 Squamous cell Results for this PM JIGSAW OPERATOR carcinoma of lower procedure are in lobe of right lung the resul ts section. PHOSPHORUS LEVEL Routine 03/08/2021 1:32 Squamous cell Result s for this PM JIGSAW OPERATOR carcinoma of lower procedure are in lobe of right lung the resul ts section. COMPREHENSIVE METABOLIC Routine 03/08/2021 1:32 Squamous cell PANEL PM JIGSAW OPERATOR carcinoma of lower lobe of right lung COMPLETE BLOOD COUNT W/ Routine 03/08/2021 1:32 Squamous cell DIFFERENTIAL PM JIGSAW OPERATOR carcinoma of lower lobe of right lung POC GLUCOSE SCREEN Routine 02/11/2021 11:53 Resul ts for this AM CDT procedure are i n the results section. POC GLUCOSE SCREEN Routine 02/11/2021 7:22 Resul ts for this AM CDT procedure are i n the results section. MANUAL DIFFERENTIAL AM 02/11/2021 6:10 Resu lts for this AM CDT procedure are i n the results section. Results CBC AM 02/11/2021 6:10 Results for this AM CDT procedure are i n the results section. CALCIUM IONIZED, VENOUS AM 02/11/2021 6:10 Results for this AM CDT procedure are i n the results section. .GLOMERULAR FILTRATION AM 02/11/2021 6:10 R esults for this RATE AM CDT procedure are i n the results section. SERUM CREATININE AM 02/11/2021 6:10 Results for this AM CDT procedure are i n the results section. ELECTROLYTE PANEL AM 02/11/2021 6:10 Result s for this AM CDT procedure are i n the results section. BLOOD UREA NITROGEN AM 02/11/2021 6:10 Resu lts for this AM CDT procedure are i n the results section. GLUCOSE LEVEL AM 02/11/2021 6:10 Results fo r this AM CDT procedure are i n the results section. COMPLETE BLOOD COUNT W/ AM 02/11/2021 6:10 DIFFERENTIAL AM CDT PHOSPHORUS LEVEL AM 02/11/2021 6:10 Results for this AM CDT procedure are i n the results section. MAGNESIUM LEVEL AM 02/11/2021 6:10 Results for this AM CDT procedure are i n the results section. BASIC METABOLIC PANEL, AM 02/11/2021 6:10 CALCIUM IONIZED AM CDT HSV/VZV DNA DETECTION Now 02/11/2021 12:15 Re sults for this AM CDT procedure are i n the results section. POC GLUCOSE SCREEN Routine 02/10/2021 9:53 Resul ts for this PM CDT procedure are i n the results section. MANUAL DIFFERENTIAL STAT 02/10/2021 5:57 Resu lts for this PM CDT procedure are i n the results section. Results CBC STAT 02/10/2021 5:57 Results for this PM CDT procedure are i n the results section. FRACTIONATED BILIRUBIN Now 02/10/2021 5:57 R esults for this PM CDT procedure are i n the results section. TOTAL PROTEIN Now 02/10/2021 5:57 Results fo r this PM CDT procedure are i n the results section. ASPARTATE Now 02/10/2021 5:57 Results for this AMINOTRANSFERASE PM CDT procedure a re in the results section. ALANINE Now 02/10/2021 5:57 Results for this AMINOTRANSFERASE PM CDT procedure a re in the results section. ALKALINE PHOSPHATASE Now 02/10/2021 5:57 Res ults for this PM CDT procedure are i n the results section. ALBUMIN LEVEL Now 02/10/2021 5:57 Results fo r this PM CDT procedure are i n the results section. CALCIUM LEVEL TOTAL Now 02/10/2021 5:57 Resu lts for this PM CDT procedure are i n the results section. .GLOMERULAR FILTRATION Now 02/10/2021 5:57 R esults for this RATE PM CDT procedure are i n the results section. SERUM CREATININE Now 02/10/2021 5:57 Results for this PM CDT procedure are i n the results section. ELECTROLYTE PANEL Now 02/10/2021 5:57 Result s for this PM CDT procedure are i n the results section. BLOOD UREA NITROGEN Now 02/10/2021 5:57 Resu lts for this PM CDT procedure are i n the results section. GLUCOSE LEVEL Now 02/10/2021 5:57 Results fo r this PM CDT procedure are i n the results section. APTT Now 02/10/2021 5:57 Results for this PM CDT procedure are i n the results section. PROTHROMBIN TIME Now 02/10/2021 5:57 Results for this PM CDT procedure are i n the results section. COMPLETE BLOOD COUNT W/ Now 02/10/2021 5:57 DIFFERENTIAL PM CDT PHOSPHORUS LEVEL Now 02/10/2021 5:57 Results for this PM CDT procedure are i n the results section. MAGNESIUM LEVEL Now 02/10/2021 5:57 Results for this PM CDT procedure are i n the results section. COMPREHENSIVE METABOLIC Now 02/10/2021 5:[address] HEAD WO CONTRAST Routine 02/10/2021 4:43 Resu lts for this PM CDT procedure are i n the results section. COVID-19 Routine 02/03/2021 10:58 Encounter for Results fo r this (SARS-COV-2) PCR AM CDT observation for procedur e are in ASYMPTOMATIC other suspected the results exposure to section. 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 FRACTIONATED BILIRUBIN Routine 01/25/2021 2:18 Squamous cell Results for this PM CDT carcinoma, NOS of procedure are in lower lobe, lung the results <Right> section. TOTAL PROTEIN Routine 01/25/2021 2:18 Squamous cell Results f or this PM CDT carcinoma, NOS of procedure are in lower lobe, lung the results <Right> section. ASPARTATE Routine 01/25/2021 2:18 Squamous cell Results fo r this AMINOTRANSFERASE PM CDT carcinoma, NOS of proced ure are in lower lobe, lung the results <Right> section. ALANINE Routine 01/25/2021 2:18 Squamous cell Results fo r this AMINOTRANSFERASE PM CDT carcinoma, NOS of proced ure are in lower lobe, lung the results <Right> section. ALKALINE PHOSPHATASE Routine 01/25/2021 2:18 Squamous cell Re sults for this PM CDT carcinoma, NOS of procedure are in lower lobe, lung the results <Right> section. ALBUMIN LEVEL Routine 01/25/2021 2:18 Squamous cell Results f or this PM CDT carcinoma, NOS of procedure are in lower lobe, lung the results <Right> section. CALCIUM LEVEL TOTAL Routine 01/25/2021 2:18 Squamous cell Res ults for this PM CDT carcinoma, NOS of procedure are in lower lobe, lung the results <Right> section. .GLOMERULAR FILTRATION Routine 01/25/2021 2:18 Squamous cell Results for this RATE PM CDT carcinoma, NOS of procedure are in lower lobe, lung the results <Right> section. SERUM CREATININE Routine 01/25/2021 2:18 Squamous cell Result s for this PM CDT carcinoma, NOS of procedure are in lower lobe, lung the results <Right> section. ELECTROLYTE PANEL Routine 01/25/2021 2:18 Squamous cell Resul ts for this PM CDT carcinoma, NOS of procedure are in lower lobe, lung the results <Right> section. BLOOD UREA NITROGEN Routine 01/25/2021 2:18 Squamous cell Res ults for this PM CDT carcinoma, NOS of procedure are in lower lobe, lung the results <Right> section. GLUCOSE LEVEL Routine 01/25/2021 2:18 Squamous cell Results f or this PM CDT carcinoma, NOS of procedure are in lower lobe, lung the results <Right> section. MANUAL DIFFERENTIAL Routine 01/25/2021 2:18 Squamous cell Res ults for this PM CDT carcinoma, NOS of procedure are in lower lobe, lung the results <Right> section. Results CBC Routine 01/25/2021 2:18 Squamous cell Results fo r this PM CDT carcinoma, NOS of procedure are in lower lobe, lung the results <Right> section. MAGNESIUM LEVEL Routine 01/25/2021 2:18 Squamous cell Results for this PM CDT carcinoma, NOS of procedure are in lower lobe, lung the results <Right> section. PHOSPHORUS LEVEL Routine 01/25/2021 2:18 Squamous cell Result s for this PM CDT carcinoma, NOS of procedure are in lower lobe, lung the results <Right> section. FREE T3 Routine 01/25/2021 2:18 Squamous cell Results fo r this PM CDT carcinoma, NOS of procedure are in lower lobe, lung the results <Right> section. THYROID STIMULATING Routine 01/25/2021 2:18 Squamous cell Res ults for this HORMONE PM CDT carcinoma, NOS of procedure are in lower lobe, lung the results <Right> section. FREE THYROXINE Routine 01/25/2021 2:18 Squamous cell Results for this PM CDT carcinoma, NOS of procedure are in lower lobe, lung the results <Right> section. COMPREHENSIVE METABOLIC Routine 01/25/2021 2:18 Squamous cell PANEL PM CDT carcinoma, NOS of lower lobe, lung <Right> COMPLETE BLOOD COUNT W/ Routine 01/25/2021 2:18 Squamous cell DIFFERENTIAL PM CDT carcinoma, NOS of lower lobe, lung <Right> MRI BRAIN W WO CONTRAST Routine 01/25/2021 1:48 Secondary Results for this PM CDT malignant neoplasm procedure are in of brain the results section. FRACTIONATED BILIRUBIN Routine 01/12/2021 11:15 Squamous cell Results for this AM CDT carcinoma, NOS of procedure are in lower lobe, lung the results <Right> section. TOTAL PROTEIN Routine 01/12/2021 11:15 Squamous cell Results f or this AM CDT carcinoma, NOS of procedure are in lower lobe, lung the results <Right> section. ASPARTATE Routine 01/12/2021 11:15 Squamous cell Results fo r this AMINOTRANSFERASE AM CDT carcinoma, NOS of proced ure are in lower lobe, lung the results <Right> section. ALANINE Routine 01/12/2021 11:15 Squamous cell Results fo r this AMINOTRANSFERASE AM CDT carcinoma, NOS of proced ure are in lower lobe, lung the results <Right> section. ALKALINE PHOSPHATASE Routine 01/12/2021 11:15 Squamous cell Re sults for this AM CDT carcinoma, NOS of procedure are in lower lobe, lung the results <Right> section. ALBUMIN LEVEL Routine 01/12/2021 11:15 Squamous cell Results f or this AM CDT carcinoma, NOS of procedure are in lower lobe, lung the results <Right> section. CALCIUM LEVEL TOTAL Routine 01/12/2021 11:15 Squamous cell Res ults for this AM CDT carcinoma, NOS of procedure are in lower lobe, lung the results <Right> section. .GLOMERULAR FILTRATION Routine 01/12/2021 11:15 Squamous cell Results for this RATE AM CDT carcinoma, NOS of procedure are in lower lobe, lung the results <Right> section. SERUM CREATININE Routine 01/12/2021 11:15 Squamous cell Result s for this AM CDT carcinoma, NOS of procedure are in lower lobe, lung the results <Right> section. ELECTROLYTE PANEL Routine 01/12/2021 11:15 Squamous cell Resul ts for this AM CDT carcinoma, NOS of procedure are in lower lobe, lung the results <Right> section. BLOOD UREA NITROGEN Routine 01/12/2021 11:15 Squamous cell Res ults for this AM CDT carcinoma, NOS of procedure are in lower lobe, lung the results <Right> section. GLUCOSE LEVEL Routine 01/12/2021 11:15 Squamous cell Results f or this AM CDT carcinoma, NOS of procedure are in lower lobe, lung the results <Right> section. MANUAL DIFFERENTIAL Routine 01/12/2021 11:15 Squamous cell Res ults for this AM CDT carcinoma, NOS of procedure are in lower lobe, lung the results <Right> section. Results CBC Routine 01/12/2021 11:15 Squamous cell Results fo r this AM CDT carcinoma, NOS of procedure are in lower lobe, lung the results <Right> section. COMPREHENSIVE METABOLIC Routine 01/12/2021 11:15 Squamous cell PANEL AM CDT carcinoma, NOS of lower lobe, lung <Right> COMPLETE BLOOD COUNT W/ Routine 01/12/2021 11:15 Squamous cell DIFFERENTIAL AM CDT carcinoma, NOS of lower lobe, lung <Right> CT CHEST ABDOMEN PELVIS Routine 01/11/2021 2:23 Squamous cell Results for this W CONTRAST PM CDT carcinoma, NOS of procedure are in lower lobe, lung the results <Right> section. POC CREATININE Routine 01/11/2021 1:21 Results f or this PM CDT procedure are i n the results section. 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 SERUM CREATININE Routine 12/03/2020 2:42 Squamous cell Result s for this PM CDT carcinoma of lower procedure are in lobe of right lung the resul ts section. MANUAL DIFFERENTIAL Routine 12/03/2020 2:42 Squamous cell Res ults for this PM CDT carcinoma of lower procedure are in lobe of right lung the resul ts section. Results CBC Routine 12/03/2020 2:42 Squamous cell Results fo r this PM CDT carcinoma of lower procedure are in lobe of right lung the resul ts section. GLUCOSE, RANDOM Routine 12/03/2020 2:42 Squamous cell Results for this PM CDT carcinoma of lower procedure are in lobe of right lung the resul ts section. 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 MAGNESIUM LEVEL Routine 12/03/2020 2:42 Squamous cell Results for this PM CDT carcinoma of lower procedure are in lobe of right lung the resul ts section. ELECTROLYTE PANEL Routine 12/03/2020 2:42 Squamous cell Resul ts for this PM CDT carcinoma of lower procedure are in lobe of right lung the resul ts section. COMPLETE BLOOD COUNT W/ Routine 12/03/2020 2:42 Squamous cell DIFFERENTIAL PM CDT carcinoma of lower lobe of right lung .GLOMERULAR FILTRATION Routine 11/18/2020 1:36 Squamous cell Results for this RATE PM CDT carcinoma of lower procedure are in lobe of right lung the resul ts section. SERUM CREATININE Routine 11/18/2020 1:36 Squamous cell Result s for this PM CDT carcinoma of lower procedure are in lobe of right lung the resul ts section. MANUAL DIFFERENTIAL Routine 11/18/2020 1:36 Squamous cell Res ults for this PM CDT carcinoma of lower procedure are in lobe of right lung the resul ts section. Results CBC Routine 11/18/2020 1:36 Squamous cell Results fo r this PM CDT carcinoma of lower procedure are in lobe of right lung the resul ts section. GLUCOSE, RANDOM Routine 11/18/2020 1:36 Squamous cell Results for this PM CDT carcinoma of lower procedure are in lobe of right lung the resul ts section. 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 MAGNESIUM LEVEL Routine 11/18/2020 1:36 Squamous cell Results for this PM CDT carcinoma of lower procedure are in lobe of right lung the resul ts section. ELECTROLYTE PANEL Routine 11/18/2020 1:36 Squamous cell Resul ts for this PM CDT carcinoma of lower procedure are in lobe of right lung the resul ts section. COMPLETE BLOOD COUNT W/ Routine 11/18/2020 1:36 Squamous cell DIFFERENTIAL PM CDT carcinoma of lower lobe of right lung .GLOMERULAR FILTRATION Routine 11/09/2020 12:39 Squamous cell Results for this RATE PM CDT carcinoma of lower procedure are in lobe of right lung the resul ts section. SERUM CREATININE Routine 11/09/2020 12:39 Squamous cell Result s for this PM CDT carcinoma of lower procedure are in lobe of right lung the resul ts section. MANUAL DIFFERENTIAL Routine 11/09/2020 12:39 Squamous cell Res ults for this PM CDT carcinoma of lower procedure are in lobe of right lung the resul ts section. Results CBC Routine 11/09/2020 12:39 Squamous cell Results fo r this PM CDT carcinoma of lower procedure are in lobe of right lung the resul ts section. GLUCOSE, RANDOM Routine 11/09/2020 12:39 Squamous cell Results for this PM CDT carcinoma of lower procedure are in lobe of right lung the resul ts section. 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 MAGNESIUM LEVEL Routine 11/09/2020 12:39 Squamous cell Results for this PM CDT carcinoma of lower procedure are in lobe of right lung the resul ts section. ELECTROLYTE PANEL Routine 11/09/2020 12:39 Squamous cell Resul ts for this PM CDT carcinoma of lower procedure are in lobe of right lung the resul ts section. COMPLETE BLOOD COUNT W/ Routine 11/09/2020 12:39 Squamous cell DIFFERENTIAL PM CDT carcinoma of lower lobe of right lung CT HEAD WO CONTRAST Routine 11/02/2020 2:07 Resu lts for this PM CDT procedure are i n the results section. CONFIRM ABORH TYPE Now 11/02/2020 1:18 Resul ts for this PM CDT procedure are i n the results section. TMP INTERPRETATION Routine 11/02/2020 1:08 Resul ts for this ANTIBODY SCREEN PM CDT procedure ar e in NEGATIVE the results section. CLOT EXPIRATION DATE Routine 11/02/2020 1:08 Res ults for this PM CDT procedure are i n the results section. ANTIBODY SCREEN Now 11/02/2020 1:08 Results for this PM CDT procedure are i n the results section. FRACTIONATED BILIRUBIN Now 11/02/2020 1:08 R esults for this PM CDT procedure are i n the results section. ABORH Now 11/02/2020 1:08 Results for this PM CDT procedure are i n the results section. TOTAL PROTEIN Now 11/02/2020 1:08 Results fo r this PM CDT procedure are i n the results section. ASPARTATE Now 11/02/2020 1:08 Results for this AMINOTRANSFERASE PM CDT procedure a re in the results section. ALANINE Now 11/02/2020 1:08 Results for this AMINOTRANSFERASE PM CDT procedure a re in the results section. ALKALINE PHOSPHATASE Now 11/02/2020 1:08 Res ults for this PM CDT procedure are i n the results section. ALBUMIN LEVEL Now 11/02/2020 1:08 Results fo r this PM CDT procedure are i n the results section. CALCIUM LEVEL TOTAL Now 11/02/2020 1:08 Resu lts for this PM CDT procedure are i n the results section. .GLOMERULAR FILTRATION Now 11/02/2020 1:08 R esults for this RATE PM CDT procedure are i n the results section. SERUM CREATININE Now 11/02/2020 1:08 Results for this PM CDT procedure are i n the results section. ELECTROLYTE PANEL Now 11/02/2020 1:08 Result s for this PM CDT procedure are i n the results section. BLOOD UREA NITROGEN Now 11/02/2020 1:08 Resu lts for this PM CDT procedure are i n the results section. GLUCOSE LEVEL Now 11/02/2020 1:08 Results fo r this PM CDT procedure are i n the results section. MANUAL DIFFERENTIAL STAT 11/02/2020 1:08 Resu lts for this PM CDT procedure are i n the results section. Results CBC STAT 11/02/2020 1:08 Results for this PM CDT procedure are i n the results section. PHOSPHORUS LEVEL Now 11/02/2020 1:08 Results for this PM CDT procedure are i n the results section. MAGNESIUM LEVEL Now 11/02/2020 1:08 Results for this PM CDT procedure are i n the results section. COMPREHENSIVE METABOLIC Now 11/02/2020 1:08 PANEL PM CDT TYPE AND SCREEN Now 11/02/2020 1:08 PM CDT COMPLETE BLOOD COUNT W/ Now 11/02/2020 1:08 DIFFERENTIAL PM CDT XR CHEST 1 VW Routine 11/02/2020 1:03 Results fo r this PM CDT procedure are i n the results section. EKG, 12-LEAD (PORTABLE) Routine 11/02/2020 .GLOMERULAR FILTRATION Routine 10/26/2020 1:59 Squamous cell Results for this RATE PM CDT carcinoma of lower procedure are in lobe of right lung the resul ts section. SERUM CREATININE Routine 10/26/2020 1:59 Squamous cell Result s for this PM CDT carcinoma of lower procedure are in lobe of right lung the resul ts section. MANUAL DIFFERENTIAL Routine 10/26/2020 1:59 Squamous cell Res ults for this PM CDT carcinoma of lower procedure are in lobe of right lung the resul ts section. Results CBC Routine 10/26/2020 1:59 Squamous cell Results fo r this PM CDT carcinoma of lower procedure are in lobe of right lung the resul ts section. GLUCOSE, RANDOM Routine 10/26/2020 1:59 Squamous cell Results for this PM CDT carcinoma of lower procedure are in lobe of right lung the resul ts section. 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 MAGNESIUM LEVEL Routine 10/26/2020 1:59 Squamous cell Results for this PM CDT carcinoma of lower procedure are in lobe of right lung the resul ts section. ELECTROLYTE PANEL Routine 10/26/2020 1:59 Squamous cell Resul ts for this PM CDT carcinoma of lower procedure are in lobe of right lung the resul ts section. COMPLETE BLOOD COUNT W/ Routine 10/26/2020 1:59 Squamous cell DIFFERENTIAL PM CDT carcinoma of lower lobe of right lung SOLID TUMOR Routine 10/22/2020 11:19 GENOMIC ASSAY FUSIONS AM CDT 2018 INTERPRETATION AND REPORT SYLVIE DIGGS SOLID TUMOR Routine 10/22/2020 11:19 GENOMIC ASSAY DNA 2018 AM CDT INTPRETATION AND REPORT .GLOMERULAR FILTRATION Routine 10/19/2020 1:01 Squamous cell Results for this RATE PM CDT carcinoma of lower procedure are in lobe of right lung the resul ts section. SERUM CREATININE Routine 10/19/2020 1:01 Squamous cell Result s for this PM CDT carcinoma of lower procedure are in lobe of right lung the resul ts section. MANUAL DIFFERENTIAL Routine 10/19/2020 1:01 Squamous cell Res ults for this PM CDT carcinoma of lower procedure are in lobe of right lung the resul ts section. Results CBC Routine 10/19/2020 1:01 Squamous cell Results fo r this PM CDT carcinoma of lower procedure are in lobe of right lung the resul ts section. ASPARTATE Routine 10/19/2020 1:01 Squamous cell Results fo r this AMINOTRANSFERASE PM CDT carcinoma of lower proce dure are in lobe of right lung the resul ts section. ALANINE Routine 10/19/2020 1:01 Squamous cell Results fo r this AMINOTRANSFERASE PM CDT carcinoma of lower proce dure are in lobe of right lung the resul ts section. BILIRUBIN TOTAL Routine 10/19/2020 1:01 Squamous cell Results for this PM CDT carcinoma of lower procedure are in lobe of right lung the resul ts section. GLUCOSE, RANDOM Routine 10/19/2020 1:01 Squamous cell Results for this PM CDT carcinoma of lower procedure are in lobe of right lung the resul ts section. 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 MAGNESIUM LEVEL Routine 10/19/2020 1:01 Squamous cell Results for this PM CDT carcinoma of lower procedure are in lobe of right lung the resul ts section. ELECTROLYTE PANEL Routine 10/19/2020 1:01 Squamous cell Resul ts for this PM CDT carcinoma of lower procedure are in lobe of right lung the resul ts section. COMPLETE BLOOD COUNT W/ Routine 10/19/2020 1:01 Squamous cell DIFFERENTIAL PM CDT carcinoma of lower lobe of right lung MRI BRAIN W WO CONTRAST Routine 10/08/2020 7:24 Non-small osmar l Results for this PM CDT cancer of lower procedure ar e in lobe of right the results lung, not section. otherwise specified SPIROMETRY W/O Routine 10/07/2020 3:08 Non-small cell Results for this DILATORS, DLCO AND BODY PM CDT cancer of lower p rocedure are in PLETHSMOGRAPHIC LUNG lobe of right the re sults VOLUMES lung, not section. otherwise specified PETCT SUBSEQUENT Routine 10/07/2020 9:50 Non-small cell Resul ts for this TREATMENT STRATEGY AM CDT cancer of lower proced ure are in lobe of right the results lung, not section. otherwise specified POC GLUCOSE SCREEN Routine 10/07/2020 8:24 Resul ts for this AM CDT procedure are i n the results section. REGINE DIGGS NTRK3 FUSION Routine 10/05/2020 6:48 Squamous cell Resu lts for this ANALYSIS MATERIAL PM CDT carcinoma of lower proc edure are in REQUEST lobe of right lung the resul ts section. REGINE DIGGS NTRK2 FUSION Routine 10/05/2020 6:48 Squamous cell Resu lts for this ANALYSIS MATERIAL PM CDT carcinoma of lower proc edure are in REQUEST lobe of right lung the resul ts section. REGINE DIGGS NTRK1 FUSION Routine 10/05/2020 6:48 Squamous cell Resu lts for this ANALYSIS MATERIAL PM CDT carcinoma of lower proc edure are in REQUEST lobe of right lung the resul ts section. REGINE DIGGS ROS1 FUSION Routine 10/05/2020 6:48 Squamous cell Resul ts for this ANALYSIS MATERIAL PM CDT carcinoma of lower proc edure are in REQUEST lobe of right lung the resul ts section. REGINE DIGGS RET FUSION Routine 10/05/2020 6:48 Squamous cell Result s for this ANALYSIS MATERIAL PM CDT carcinoma of lower proc edure are in REQUEST lobe of right lung the resul ts section. REGINE DIGGS KRAS MUTATION Routine 10/05/2020 6:48 Squamous cell Res ults for this MATERIAL REQUEST PM CDT carcinoma of lower proce dure are in lobe of right lung the resul ts section. REGINE DIGGS EML4/ALK FUSION Routine 10/05/2020 6:48 Squamous cell R esults for this ANALYSIS MATERIAL PM CDT carcinoma of lower proc edure are in REQUEST lobe of right lung the resul ts section. REGINE DIGGS EGFR MUTATION Routine 10/05/2020 6:48 Squamous cell Res ults for this MATERIAL REQUEST PM CDT carcinoma of lower proce dure are in lobe of right lung the resul ts section. REGINE DIGGS BRAF V600 E Routine 10/05/2020 6:48 Squamous cell Resul ts for this MUTATION MATERIAL PM CDT carcinoma of lower proc edure are in REQUEST lobe of right lung the resul ts section. 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 otherwise specified TOTAL PROTEIN Routine 10/05/2020 2:51 Non-small cell Results for this PM CDT cancer of lower procedure ar e in lobe of right the results lung, not section. otherwise specified ASPARTATE Routine 10/05/2020 2:51 Non-small cell Results f or this AMINOTRANSFERASE PM CDT cancer of lower procedur e are in lobe of right the results lung, not section. otherwise specified ALANINE Routine 10/05/2020 2:51 Non-small cell Results f or this AMINOTRANSFERASE PM CDT cancer of lower procedur e are in lobe of right the results lung, not section. otherwise specified ALKALINE PHOSPHATASE Routine 10/05/2020 2:51 Non-small cell R esults for this PM CDT cancer of lower procedure ar e in lobe of right the results lung, not section. otherwise specified ALBUMIN LEVEL Routine 10/05/2020 2:51 Non-small cell Results for this PM CDT cancer of lower procedure ar e in lobe of right the results lung, not section. otherwise specified CALCIUM LEVEL TOTAL Routine 10/05/2020 2:51 Non-small cell Re sults for this PM CDT cancer of lower procedure ar e in lobe of right the results lung, not section. otherwise specified .GLOMERULAR FILTRATION Routine 10/05/2020 2:51 Non-small cell Results for this RATE PM CDT cancer of lower procedure ar e in lobe of right the results lung, not section. otherwise specified SERUM CREATININE Routine 10/05/2020 2:51 Non-small cell Resul ts for this PM CDT cancer of lower procedure ar e in lobe of right the results lung, not section. otherwise specified ELECTROLYTE PANEL Routine 10/05/2020 2:51 Non-small cell Resu lts for this PM CDT cancer of lower procedure ar e in lobe of right the results lung, not section. otherwise specified BLOOD UREA NITROGEN Routine 10/05/2020 2:51 Non-small cell Re sults for this PM CDT cancer of lower procedure ar e in lobe of right the results lung, not section. otherwise specified GLUCOSE LEVEL Routine 10/05/2020 2:51 Non-small cell Results for this PM CDT cancer of lower procedure ar e in lobe of right the results lung, not section. otherwise specified MANUAL DIFFERENTIAL Routine 10/05/2020 2:51 Non-small cell Re sults for this PM CDT cancer of lower procedure ar e in lobe of right the results lung, not section. otherwise specified Results CBC Routine 10/05/2020 2:51 Non-small cell Results f or this PM CDT cancer of lower procedure ar e in lobe of right the results lung, not section. otherwise specified NGS BLOOD CONTROL Routine 10/05/2020 2:51 Non-small cell R esults for this PM CDT cancer of lower procedure ar e in lobe of right the results lung, not section. otherwise specified HP LB ROS1 FUSION Routine 10/05/2020 2:51 Non-small cell Resu lts for this ANALYSIS COLLECTION, PM CDT cancer of lower proc edure are in BLOOD lobe of right the results lung, not section. otherwise specified HP LB RET FUSION Routine 10/05/2020 2:51 Non-small cell Resul ts for this ANALYSIS COLLECTION, PM CDT cancer of lower proc edure are in BLOOD lobe of right the results lung, not section. otherwise specified HP LB MET MUTATION Routine 10/05/2020 2:51 Non-small cell Res ults for this ANALYSIS COLLECTION, PM CDT cancer of lower proc edure are in BLOOD lobe of right the results lung, not section. otherwise specified HP LB ERBB2 FULL GENE Routine 10/05/2020 2:51 Non-small cell Results for this MUTATION ANALYSIS PM CDT cancer of lower procedu re are in COLLECTION, BLOOD lobe of right the resul ts lung, not section. otherwise specified HP LB EML4/ALK FUSION Routine 10/05/2020 2:51 Non-small cell Results for this ANALYSIS COLLECTION, PM CDT cancer of lower proc edure are in BLOOD lobe of right the results lung, not section. otherwise specified HP LB BRAF MUTATION Routine 10/05/2020 2:51 Non-small cell Re sults for this ANALYSIS COLLECTION, PM CDT cancer of lower proc edure are in BLOOD lobe of right the results lung, not section. otherwise specified RESEARCH PROTOCOL Routine 10/05/2020 2:51 Non-small cell Resu lts for this [id number] PM CDT cancer of lower procedure ar e in lobe of right the results lung, not section. otherwise specified FREE THYROXINE Routine 10/05/2020 2:51 Non-small cell Results for this PM CDT cancer of lower procedure ar e in lobe of right the results lung, not section. otherwise specified THYROID STIMULATING Routine 10/05/2020 2:51 Non-small cell Re sults for this HORMONE PM CDT cancer of lower procedure ar e in lobe of right the results lung, not section. otherwise specified PHOSPHORUS LEVEL Routine 10/05/2020 2:51 Non-small cell Resul ts for this PM CDT cancer of lower procedure ar e in lobe of right the results lung, not section. otherwise specified MAGNESIUM LEVEL Routine 10/05/2020 2:51 Non-small cell Result s for this PM CDT cancer of lower procedure ar e in lobe of right the results lung, not section. otherwise specified LACTATE DEHYDROGENASE Routine 10/05/2020 2:51 Non-small cell Results for this PM CDT cancer of lower procedure ar e in lobe of right the results lung, not section. otherwise specified COMPREHENSIVE METABOLIC Routine 10/05/2020 2:51 Non-small osmar l PANEL PM CDT cancer of lower lobe of right lung, not otherwise specified COMPLETE BLOOD COUNT W/ Routine 10/05/2020 2:51 Non-small osmar l DIFFERENTIAL PM CDT cancer of lower lobe of right lung, not otherwise specified COVID-19 (SARS-COV-2) Routine 10/03/2020 12:51 Encounter for R esults for this PCR-ASYMPTOMATIC MC PM CDT observation for kim cruze are in other suspected the results exposure to section. biological agent ruled out HP CG RET FISH Routine 09/16/2020 6:30 INTERPRETATION AND PM CDT REPORT HP CG ALK FISH Routine 09/16/2020 6:30 INTERPRETATION AND PM CDT REPORT HP CG MET FISH Routine 09/16/2020 6:30 INTERPRETATION AND PM CDT REPORT HP CG ROS1 FISH Routine 09/16/2020 6:30 INTERPRETATION AND PM CDT REPORT HP CYTOGENETICS BLOOD Routine 09/16/2020 6:30 Re sults for this COLLECTION PM CDT procedure are i n the results section. OSI CHEST Routine 09/16/2020 2:03 Cancer Results for this PM CDT procedure are i n the results section. PATHOLOGY OUTSIDE Routine 09/16/2020 Results fo r this INTERPRETATION procedure are in the results section. OSI CT CHEST Routine 09/10/2020 2:04 Cancer Results for this PM CDT procedure are i n the results section. after 06/20/2020 Results MRI Brain with and without Contrast (04/22/2021 1:52 PM JIGSAW OPERATOR)Only the most recent of4 resultswithin the time period is included. Specimen Impressions [id number] - 04/22/2021 3:14 PM JIGSAW OPERATOR 1. Interval increase in size of the ri ght parietal and right occipital metastatic lesions with surrounding edema, treatment effect versus progression. Consider short-term follow-up and/or advanced brain tumor imaging. 2. There is also interval increase in size of 6 mm dural based lesion within the right occipital lobe suggestive of dural metastatic disease. I personally reviewed these image(s) elizabeth beltran with the resident's/fellow's interpretations, certify that if a procedure was performed I was physically present, and agree with the final report. 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 Currently on chemotherapy and immunotherapy. Stereotactic radiosurgery at right occipital lo be and right parietal lobe metastases in January 2021. INDICATION: Cancer staging or restaging COMPARISON: MRI brain with and without c ontrast dated 03/18/2021 and 02/03/2021. TECHNIQUE: Multi-sequence MRI of the bra in with and without intravenous contrast as per standard departmental protocol. FINDINGS: There is interval increase in size of th e enhancing right posterior parietal and occipital lesions with increased surrounding T2/FLAIR hyperintensity causing increased effacement of the right lateral ve ntricle. The right posterior parietal lo be lesion currently measures 2.4 x 2.1 cm, previously 1.7 x 1.7 cm. The right occipital lobe lesion measures 1.6 x 1.7 cm, previously 1.2 x 1.2 cm. There is also interval increase in size of a dural bas ed extra-axial enhancing lesion adjacent to the right occipital lesion currently measures 0.6 cm, previously 0.2 cm. No midline shift. Basal cisterns, fourth ventricle and foramen magnum are open. Scattered microhemorrhages are noted les ion, otherwise no large volume intracranial hemorrhage. No evidence of acute infarct. ORBITS: The orbital structures unremarka ble. SINUSES: The paranasal sinuses and masto id air cells are clear. 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 Currently on chemotherapy and immunotherapy. Stereotactic radiosurgery at right occipital lobe and right parietal lobe metastases in January 2021 . INDICATION: Cancer staging or restaging COMPARISON: MRI brain with and without c ontrast dated 03/18/2021 and 02/03/2021. TECHNIQUE: Multi-sequence MRI of the bra in with and without intravenous contrast as per standard departmental protocol. FINDINGS: There is interval increase in size of th e enhancing right posterior parietal and occipital lesions with increased surrounding T2/FLAIR hyperintensity causing increased effacement of the right lateral ventricle. The right posterior parietal lobe lesion currently measures 2.4 x 2.1 cm, previously 1.7 x 1.7 cm. The right occipital lobe lesion measures 1.6 x 1.7 cm, previously 1.2 x 1.2 cm. There is also interval increase in size of a dural based extra- axial enhancing lesion adjacent to the right occipital lesion currently measures 0.6 cm, previously 0.2 cm. No midline shift. Basal cisterns, fourth ventricle and foramen magnum are open. Scattered microhemorrhages are noted les ion, otherwise no large volume intracranial hemorrhage. No evidence of acute infarct. ORBITS: The orbital structures unremarka ble. SINUSES: The paranasal sinuses and masto id air cells are clear. IMPRESSION: 1. Interval increase in size of the rig ht parietal and right occipital metastatic lesions with surrounding edema, treatment effect versus progression. Consider short-term follow-up and/or advanced brain tumor imaging. 2. There is also interval increase in s ize of 6 mm dural based lesion within the right occipital lobe suggestive of dural metastatic disease. I personally reviewed these image(s) elizabeth beltran with the resident's/fellow's interpretations, certify that if a procedure was performed I was physically present, and agree with the final report. Performing Organization Address City/State/ZIP Code Phon e Number [id number] .Serum Creatinine (04/15/2021 1:21 AM JIGSAW OPERATOR)Only the most recent of16 results within the time period is included. Pathologist Sig nature Creatinine 0.91 0.67 - 1.17 mg/dL [facility] [place] C ENTER Specimen Blood Performing Organization Address City/[facility] Phon e Number [facility] CANCER Unless otherwise noted, [place] [address] [place] all lab tests performed by: Division of Pathology and Laboratory Medicine Kiera5 Charlene Barber (ABNORMAL) .CBC (04/15/2021 1:21 AM JIGSAW OPERATOR)Only the most recent of16 resultswithin the time period is included. WBC 18.3 (H) 4.0 - 11.0 [facility] K/uL [facility] RBC 4.12 (L) 4.50 - 6.00 [facility] M/uL [facility] Hgb 11.4 (L) 14.0 - 18.0 [facility] gm/dL [facility] Hct 34.3 (L) 40.0 - 54.0 % [facility] MCV 83 82 - 98 fL [facility] MCH 27.7 27.0 - 31.0 pg [facility] MCHC 33.2 31.0 - 36.0 [facility] gm/dL [facility] RDW-SD 46.1 35.1 - 46.3 fL [facility] RDW-CV 15.1 12.0 - 15.5 % [facility] Platelet count 211 140 - 440 K/uL [facility] MPV 11.1 (H) 4.0 - 10.4 fL [facility] INRBC 0.0 <=0.0 % [facility] Comment: CANCER CENTER The INRBC (instrument NRBC) value reflects the enumera tion of nucleated red blood cells contained in a 200uL samp le of whole blood analyzed by the instrument. This value may differ from the NRBC value reported in a manual differ ential, which is based on a 100 cell differential. Specimen Blood Performing Organization Address City/[facility] Phon e Number [facility] CANCER Unless otherwise noted, [address] all lab tests performed by: Division of Pathology and Laboratory Medicine [address] [facility] Glomerular Filtration Rate (04/15/2021 1:21 AM JIGSAW OPERATOR)Only the most recent of16 resultswithin the time period is included. eGFR-AA 95 >=60 [facility] Comment: mL/min/1.73 [facility] Normal eGFR: >= 60 mL/min/1.73 m2 sq. m Note: The eGFR is calculated using the CKD-EPI equation. The eGFR declines with age. eGFR <60 mL/min/1.73 m2 is considered as "decreased". This equation should only be used for patients 18 and older. According to the National dney Foundation's Kidney Disease Outcome Quality Initiative (KDOQI) classification and 2012 Kidney Disease Improving Global Outcomes (KDIGO) Clinical Practice Guideline, the stage of CKD should be categorized based on estimated GFR. Stage Description GFR mL/min/1.73 m2 1 Normal or high GFR >=90 2 Mildly decreased GFR 60-89 3a Mildly to moderately decreased GFR 45-59 3b Moderately to severely decreased GFR 30-44 4 Severely decreased GFR 15-29 5 Kidney failure <15 eGFR-RIGOBERTO 82 >=60 [facility] Comment: mL/min/1.73 [facility] Normal eGFR: >= 60 mL/min/1.73 m2 sq. m Note: The eGFR is calculated using the CKD-EPI equation. The eGFR declines with age. eGFR <60 mL/min/1.73 m2 is considered as "decreased". This equation should only be used for patients 18 and older. According to the National dney Foundation's Kidney Disease Outcome Quality Initiative (KDOQI) classification and 2012 Kidney Disease Improving Global Outcomes (KDIGO) Clinical Practice Guideline, the stage of CKD should be categorized based on estimated GFR. Stage Description GFR mL/min/1.73 m2 1 Normal or high GFR >=90 2 Mildly decreased GFR 60-89 3a Mildly to moderately decreased GFR 45-59 3b Moderately to severely decreased GFR 30-44 4 Severely decreased GFR 15-29 5 Kidney failure <15 Specimen Blood Performing Organization Address City/[facility] Code Phon e Number [facility] CANCER Unless otherwise noted, [address] all lab tests performed by: Division of Pathology and Laboratory Medicine [address] aPTT (04/15/2021 1:21 AM JIGSAW OPERATOR)Only the most recent of4 resultswithin the time period is included. Pathologist Sig nature aPTT 30.5 24.7 - 36.8 second(s) [facility] Specimen Blood Performing Organization Address City/[facility] Phon e Number [facility] CANCER Unless otherwise noted, [address] all lab tests performed by: Division of Pathology and Laboratory Medicine [address] [place] Calcium Ionized, Venous (04/15/2021 1:21 AM JIGSAW OPERATOR)Only the most recent of3 resultswithin the time period is included. Pathologist Sig nature V Ion Ca 1.18 1.15 - 1.29 mmol/L [facility] [place] Specimen Blood Performing Organization Address [facility] Phon e Number [facility] CANCER Unless otherwise noted, [address] all lab tests performed by: Division of Pathology and Laboratory Medicine [address] [place] (ABNORMAL) Differential (04/15/2021 1:21 AM JIGSAW OPERATOR)Only the most recent of16 resultswithin the time period is included. Neutrophil % 90.5 (H) 42.0 - 66.0 % [facility] Lymphocyte % 2.6 (L) 24.0 - 44.0 % [facility] Monocyte % 6.1 2.0 - 7.0 % [facility] Eosinophil % 0.0 (L) 1.0 - 4.0 % [facility] Basophil % 0.1 0.0 - 1.0 % [facility] IGRE % 0.7 (H)Comment: 0.0 - 0.4 % [facility] IGRE % count [facility] includes Metamyelocytes, Myelocytes, and Promyelocytes. Neutrophil Abs 16.59 (H) 1.70 - 7.30 [facility] Lymphocyte Abs 0.47 (L) 1.00 - 4.80 [facility] Monocyte Abs 1.12 (H) 0.08 - 0.70 [facility] Eosinophil Abs 0.00 (L) 0.04 - 0.40 [facility] Basophil Abs 0.01 0.00 - 0.10 [facility] IG Abs 0.12 (H) 0.00 - 0.04 [facility] Specimen Blood Performing Organization Address City/[facility] Code Phon e Number [facility] [place] Unless otherwise noted, [address] all lab tests performed by: Division of Pathology and Laboratory Medicine [address] [place] (ABNORMAL) Prothrombin Time with INR (04/15/2021 1:21 AM JIGSAW OPERATOR)Only the most recent of4 resultswithin the time period is included. Pathologist Sig nature PT 14.6 (H) 11.5 - 13.9 [facility](s) [place] INR 1.22 (H) 0.90 - 1.10 [facility] Specimen Blood Performing Organization Address [facility] Phon e Number [facility] [place] Unless otherwise noted, [address] all lab tests performed by: Division of Pathology and Laboratory Medicine [address] [place] [address] [place] Fibrinogen (04/15/2021 1:21 AM JIGSAW OPERATOR)Only the most recent of2 resultswithin the time period is included. Pathologist Sig nature Fibrinogen 402 214 - 503 mg/dL [facility] TER Specimen Blood Performing Organization Address [facility] Phon e Number [facility] [place] Unless otherwise noted, [address] all lab tests performed by: Division of Pathology and Laboratory Medicine [facility] [place] (ABNORMAL) BUN (04/15/2021 1:21 AM JIGSAW OPERATOR)Only the most recent of16 resultswithin the time period is included. Pathologist Sig nature BUN 24 (H) 6 - 23 mg/dL [facility] [place] Specimen Blood Performing Organization Address City/[facility] Phon e Number [facility] [place] Unless otherwise noted, [address] all lab tests performed by: Division of Pathology and Laboratory Medicine [address] [place] [address] [place] (ABNORMAL) Glucose Level (04/15/2021 1:21 AM JIGSAW OPERATOR)Only the most recent of11 resultswithin the time period is included. Glucose Level 119 (H) 70 - 99 mg/dL [facility] Comment: CANCER CENTER Effective 11/04/15, the gluco se reference intervals have been updated based on [place] Diabetes Association guidelines (Standards of Medical Care in Diabetes 2016. Diabetes Care 2016; 39: S13-S22). Fasting blood glucose: Normal: 70-99 mg/dL Impaired fasting glucose (in creased risk for diabetes or pre-diabetes): 100- 125 mg/dL Diabetes mellitus: >/=126 mg/dL Random blood glucose: Normal: 70-199 mg/dL Note: Random glucose >100 mg/dL is assoc iated with increased risk for diabetes Specimen Blood Performing Organization Address City/[facility] Phon e Number [facility] CANCER Unless otherwise noted, [address] all lab tests performed by: Division of Pathology and Laboratory Medicine [facility]5 Charlene Elisabeth (ABNORMAL) ABG (04/15/2021 1:21 AM JIGSAW OPERATOR)Only the most recent of2 resultswithin the time period is included. pH Art 7.49 (H)Comment: 7.35 - 7.45 [facility] Results are CANCER CENTER corrected for a body temp of 37C. pCO2 Art 30.9 (L) 35.0 - 48.0 [facility] mmHg [facility] pO2 Art 86 83 - 108 mmHg [facility] HCO3 Art 24 21 - 28 mmol/L [facility] Base Excess Art 1 -2 - 3 mmol/L [facility] O2 Sat Art 98 95 - 99 % [facility] Specimen Blood Performing Organization Address City/[facility] Phon e Number [facility] CANCER Unless otherwise noted, [address] all lab tests performed by: Division of Pathology and Laboratory Medicine [address] [place] [address] Elisabeth (ABNORMAL) Electrolyte Panel (04/15/2021 1:21 AM JIGSAW OPERATOR)Only the most recent of16 resultswithin the time period is included. Pathologist Sig nature Sodium Lvl 144 136 - 145 mEq/L [facility] Potassium Lvl 3.7 3.5 - 5.1 mEq/L [facility] Chloride 110 (H) 98 - 107 mEq/L [facility] CO2 18 (L) 22 - 29 mEq/L [facility] Anion Gap 16 (H) 4 - 14 mEq/L [facility] Specimen Blood Performing Organization Address City/[facility]/ZIP Code Phon e Number [facility] CANCER Unless otherwise noted, [address] all lab tests performed by: Division of Pathology and Laboratory Medicine [address] [place] [address] (ABNORMAL) POC Glucose Screen (04/14/2021 10:40 PM JIGSAW OPERATOR)Only the most recent of12 resultswithin the time period is included. POC Glucose 109 (H) 70 - 99 mg/dL [facility] Comment: RN Notified Capillary blood samples, e.g . obtained by fingerstick, may have inaccurate results in patients with decreased peripheral blood flow. Method description: All resu lts are measured using Electrochemistry test methodology. The glucose in the sample mixes with the reagents on the test strip. The reaction produces an electric current. The amount of current produced is proportional to the glucose concentration in the blood. PO Sample Type Capillary POC [facility] POC [facility], [address] [place] [address], [place] [address]; Speech Assistant: Daniela Coley MD Specimen Blood Performing Organization Address City/[facility]/ZIP Code Phon e Number POC [facility] Add-On Test (04/14/2021 2:51 PM JIGSAW OPERATOR) Pathologist Sig nature Ordered Test Added [facility] Test Needed Hemoglobin A1c [facility] [facility] Specimen Existing Performing Organization Address City/[facility]/ZIP Code Phon e Number [facility] CANCER Unless otherwise noted, [address] all lab tests performed by: Division of Pathology and Laboratory Medicine [address] [place] [address] (ABNORMAL) Hemoglobin A1c (04/14/2021 12:59 AM JIGSAW OPERATOR) Pathologist Sig nature A1C 5.9 (H) 4.3 - 5.6 % [facility] Comment: [facility]ER CENTER HbA1c values >=6.5% are diagnostic of diabetes mellitu s. Diagnosis should be confirmed by repeat testing. Therapeutic Action suggested: >8.0% HbA1c; Goal of therapy: <7.0% HbA1c Specimen Blood Performing Organization Address City/[facility]/ZIP Code Phon e Number [facility] [place] Unless otherwise noted, [address] all lab tests performed by: Division of Pathology and Laboratory Medicine [address] [place] VRE Culture (04/14/2021 12:05 AM JIGSAW OPERATOR) Final Report No Vancomycin RI MD MERRITT resistant Enterococci CANCER CENTER isolated Path Review - VRE The results have been review ed and electronically signed by Pathologist: RI MD RENÉ Delaney MD, PhD #[id number] [facility]ER CENT ER Specimen Rectal Swab Performing Organization Address City/State/ZIP Code Phon e Number RI MD MERRITT CANCER Unless otherwise noted, [place] [address] CENTER all lab tests performed by: Division of Pathology and Laboratory Medicine [address] [place] EEG (04/13/2021 5:24 PM JIGSAW OPERATOR) Specimen Narrative Noemy Osborne MD - 04/13/2021 6:33 PM CS T Noemy Osborne MD 04/13/2021 7:03 PM EEG REPORT Patient: Steve Camarillo Age: 75 y.o. Consult Service: Neuro-Onco logy Consult Date: April 13, 2021 Vending Mechanic : NOEMY OSBORNE MD CLINICAL HISTORY This is 75 y.o. 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 REQUESTING PHYSICIAN Dr. Anne Marie Vicente TECHNIQUE Inpatient bedside study STATE Awake/Sleep MEDS Ativan and Keppra FINDINGS The background is organized. The recor d is symmetric. The posterior dominant rhythm is absent, rain ctive to eye opening and eye closure. Anteriorly, beta and alph a activites are seen. Drowsiness is accompanied by increased s lowing. Stage 2 sleep does occur. Diffuse slowing is seen. No epileptiform discharges are seen. Single lead ekg is otherwise unremarkabl e. IMPRESSION This is an abnormal EEG. The findings remy ggest a diffuse disturbance of cerebral activity. No sei zures occurred during the recording. OSI Shoulder (04/13/2021 2:56 PM JIGSAW OPERATOR) Specimen Narrative Systemgenerated, Documentation - 022 2:56 PM JIGSAW OPERATOR Study acquired at another institution. For comparison only. No MD Merritt originated interpretation requested or a vailable. OR CRITICAL CARE, E/M 30-74 MINUTES, HC CRITICAL CARE 1ST 30-74 MIN (04/13/2021 12:53 PM JIGSAW OPERATOR) Narrative Holger Cassidy MD - 04/13/2021 12:53 PM Shanthi Uriostegui MD 04/13/2021 2:54 PM Critical Care Performed by: Holger Cassidy MD Authorized by: Holger Cassidy MD Critical care provider statement: Critical care time (minutes): 56 Critical care start time: 04/13/2021 1:49 PM Critical care end time: 04/13/2021 2: 45 PM Critical care time was exclusive of: Teaching time, separately billable procedures, treating other patients and separately billable procedures and treating other patients Critical care was necessary to treat or prevent imminent or life-threatening deterioration of the fo llowing conditions: WIRE PULLER failure or compromise and metabolic crisis Critical care was time spent personal ly by me on the following activities: Blood draw for specimens, obtaining history from patient or surrogate, development of treatment plan with patient or surrogate, discussions with consultants, discussion s with primary provider, evaluation of patient's response to shanda tment, interpretation of cardiac output measurements, ordering and perfor layo treatments and interventions, ordering and review of laboratory studie s, ordering and review of radiographic studies, re-evaluation of p atient's condition and review of old charts I assumed direction of critical care for this patient from another provider in my specialty: no COVID-19 (SARS-CoV-2)Asymptomatic-LT (04/13/2021 12:38 PM JIGSAW OPERATOR) COVID19 Not Detected Not Detected [facility] (SARS-CoV-2) CANCER CENTER COVID19 SARS Inpatient Admission [facility] Indication CANCER CENTER Covid 19 Comment See Note [facility] Comment: [facility] [place] The shawn SARS-CoV-2 nucleic acid test for use on the shawn [place] System is a real-time RT-PCR assay intended for the qualitative detection of SARS-CoV-2 (COVID-19) viral RNA in nasopharyngeal swabs from either individuals suspected of COVID-19 by their healthcare provider or from any individual, including individuals without symptoms or other reasons to suspect COVID-19. A fact sheet for patients provided by the practice specialist ([employer]) can be reviewed at: https://www.fda.gov/media/15 5707/download. A fact sheet for Health Care providers is provided by the practice specialist ([employer]) and can be reviewed at: https://www.fda.gov/media/972828/download Results must be interpreted within the context of all relevant clinical and laboratory findings and should not form the sole basis for a diagnosis or treatment decision. Positive results do not rule out bacterial infection or co- infection with other viruses. Negative results do not preclude SARS-CoV-2 infection and must be combined with clinical observations, patient history, and/or epidemiological information. This assay has been authoriz ed by the FDA for use only under Emergency Use Authorization (EUA) in laboratories that have been CLIA-certified to perform moderate-complexity and high-complexity tests. The Microbiology Laboratory at [facility] [place], CLIA Accreditation # [id number] and CAP Accreditation #[id number], verified the performance characteristics of this assay. Internal controls are used to monitor all stages of the test process. Specimen Nasopharyngeal Swab Performing Organization Address City/State/ZIP Code Phon e Number [facility] CANCER Unless otherwise noted, [place] [address] CENTER all lab tests performed by: Division of Pathology and Laboratory Medicine [address] [facility] [address] Head without Contrast (04/13/2021 12:19 PM JIGSAW OPERATOR)Only the most recent of3 resultswithin the time period is included. Specimen Impressions [id number] - 04/13/2021 1:10 PM JIGSAW OPERATOR The edematous changes around the right o ccipital and right parietal metastases appears worse than on the previous MR study of 03/18/2021, with developing localized mass effect. This is insufficient as yet to cause midline shift. In addition there is a area of vague hig her density developing within the superficial aspect of the right-sided parietal metastasis that could represent petechial hemorrhage inside the lesion. Close interval follow-up with imaging an d clinical correlation is recommended. Narrative [id number] - 04/13/2021 1:10 PM JIGSAW OPERATOR FULL RESULT: EXAMINATION: CT HEAD WO CONTRAST on 2021 12:19 PM COMPARISON: MR of the brain 03/18/2021, C T head of 02/10/2021 HISTORY: Lung cancer, metastatic to the brain, status post gamma knife of the brain metastasis on 02/04/2021. INDICATION: Brain mass, neoplasm suspect ed TECHNIQUE: CT scan of the brain was perf ormed without intravenous contrast as per departmental protocol. FINDINGS: INTRACRANIAL: At the site of the known r ight-sided parietal metastasis we see much increased edema and a vaguely circumscribed lesion approximately 30 mm in size, these findings are visible on image 38 of series 3. It does appears as though t here is a more superficial higher density focus within this lesion indicated on that same image also raising concern for possible petechial hemorrhage within the lesion. The more inferiorly located occipital me tastasis also appears more prominent with more edema and is marked in image 22 of series 3. There is localized mass effect with forw edison displacement of the right-sided ventricular atrium and partial effacement of the right lateral ventricle. The paramesencephalic cisterns are still clear. There is no evidence for hydrocephalus. There is no large acute territorial infa rction. CALVARIA: The calvaria and extracranial soft tissues are unremarkable. ORBITS: The orbital structures are unrem arkable. SINUSES: The paranasal sinuses show diana r retention cysts, no air-fluid levels. Procedure Note Joey Garcia MD - 04/13/2021 FULL RESULT: EXAMINATION: CT HEAD WO CONTRAST on 2021 12:19 PM COMPARISON: MR of the brain 03/18/2021, C T head of 02/10/2021 HISTORY: Lung cancer, metastatic to the brain, status post gamma knife of the brain metastasis on 02/04/2021. INDICATION: Brain mass, neoplasm suspect ed TECHNIQUE: CT scan of the brain was perf ormed without intravenous contrast as per departmental protocol. FINDINGS: INTRACRANIAL: At the site of the known r ight-sided parietal metastasis we see much increased edema and a vaguely circumscribed lesion approximately 30 mm in size, these findings are visible on image 38 of series 3. It does appears as though there is a more superf icial higher density focus within this lesion indicated on that same image also raising concern for possible petechial hemorrhage within the lesion. The more inferiorly located occipital me tastasis also appears more prominent with more edema and is marked in image 22 of series 3. There is localized mass effect with forw edison displacement of the right-sided ventricular atrium and partial effacement of the right lateral ventricle. The paramesencephalic cisterns are still clear. There is no evidence for hydrocephalus. There is no large acute territorial infa rction. CALVARIA: The calvaria and extracranial soft tissues are unremarkable. ORBITS: The orbital structures are unrem arkable. SINUSES: The paranasal sinuses show diana r retention cysts, no air-fluid levels. IMPRESSION: The edematous changes around the right o ccipital and right parietal metastases appears worse than on the previous MR study of 03/18/2021, with developing localized mass effect. This is insufficient as yet to cause midline shift. In addition there is a area of vague hig her density developing within the superficial aspect of the right-sided parietal metastasis that could represent petechial hemorrhage inside the lesion. Close interval follow-up with imaging an d clinical correlation is recommended. Performing Organization Address City/[facility] Code Phon e Number [id number] (ABNORMAL) Urinalysis with Microscopic (04/13/2021 12:12 PM JIGSAW OPERATOR) Pathologist Sig nature UA WBC 52 (H) 0 - 2 /HPF [facility] UA RBC 2 0 - 2 /HPF [facility] UA Mucous NOT SEEN Not Seen-Trace /HPF [facility] UA Bacteria OCC NOT SEEN /HPF [facility] UA Squam Epi NOT SEEN None-Occasional [facility] [place] /[facility] Specimen Urine Narrative [facility] - 2 12:38 PM JIGSAW OPERATOR Some reporting parameters within the Urinalysis test have changed due to the implementation of new in strumentation in the [facility], allowi ng greater sensitivity of measurement. Urinalysis results reported by the [facility] Centers using existing instrumentation, as well as Urinalysis t esting performed manually or by backup methodology at the [facility] will remain relatively unchanged. New reporting parameters and units will now be reported for all campuses. Performing Organization Address City/[facility] Code Phon e Number [facility] CANCER Unless otherwise noted, [place] [address] [place] all lab tests performed by: Division of Pathology and Laboratory Medicine Shahana Barber (ABNORMAL) Urinalysis w/Microscopic if Indicated (04/13/2021 12:12 PM JIGSAW OPERATOR) Pathologist Sig nature UA Color Yellow Straw-Yellow [facility] UA Appear Clear Clear [facility] UA Glucose NEG NEG mg/dL [facility] [place] UA Bili NEG NEG [facility] UA Ketones NEG NEG mg/dL [facility] [place] UA Spec Grav 1.011 1.003 - 1.035 [facility] UA Blood NEG NEG [facility] UA pH 7.0 5.0 - 9.0 [facility] UA Protein 30 (A) NEG mg/dL [facility] [place] UA Urobilinogen NEG NEG [facility] UA Nitrite NEG NEG [facility] UA Leuk Est Moderate (A) NEG [facility] Specimen Urine Performing Organization Address City/[facility] Code Phon e Number [facility] [place] Unless otherwise noted, [address] all lab tests performed by: Division of Pathology and Laboratory Medicine [place] (ABNORMAL) Urine Culture (04/13/2021 12:12 PM JIGSAW OPERATOR) Final Report >= 100,000 cfu/ml Enterococcus faecalis U [facility] ... [facility] 10 - 50,000 cfu/ml Staphylococcus coagulase negative Susceptibility performed upon request. Plates will be held for 5 days (A) Path Review - The results have been review ed and electronically signed by Pathologist: [facility] Urine Oscar Delaney MD, PhD #[id number] CANCER [facility] ER (A) Organism Enterococcus faecalis [facility] () [facility] Specimen Urine Narrative [facility] [place] - 2 3:07 PM JIGSAW OPERATOR Early Sepsis Intervention Organism Antibiotic Method Susceptibility Enterococcus faecalis *BOBBI expressed in MINIMUM INHIBITORY BOBBI: MINT mcg/mL CONCENTRATION Enterococcus faecalis Ampicillin MINIMUM INHIBITORY <=2: Remy sceptible CONCENTRATION Enterococcus faecalis Vancomycin MINIMUM INHIBITORY 1: Susc eptible CONCENTRATION Enterococcus faecalis Nitrofurantoin MINIMUM INHIBITORY <=16: S usceptible [facility]TRATION Performing Organization Address City/[facility] Phon e Number [facility] [place] Unless otherwise noted, [address] all lab tests performed by: Division of Pathology and Laboratory [facility] HealthRecommindd Clot Expiration Date (04/13/2021 12:09 PM JIGSAW OPERATOR)Only the most recent of2 results within the time period is included. Pathologist Sig nature T & S Expiration 04/16/2021 [facility] [place] Specimen Blood Performing Organization Address City/[facility]/ZIP Code Phon e Number [facility] [place] Unless otherwise noted, [address] all lab tests performed by: Division of Pathology and Laboratory Medicine [facility] [employer] Fractionated Bilirubin (04/13/2021 12:09 PM JIGSAW OPERATOR)Only the most recent of8 results within the time period is included. [facility] Bili Total 0.6 <=1.2 mg/dL [facility] Comment: [facility] Indocyanine Green (ICG) may cause falsely elevated bilirubin results. Total and direct bilirubin must not be measured from samples containing indocyanine green. False elevation of total [place] irubin can be seen in patients with IgG concentrations above 28 g/L. Bili Direct <0.2Comment: <=0.3 mg/dL [facility] Indocyanine Green [facility] (ICG) may cause falsely elevated bilirubin results. Total and direct bilirubin must not be measured from samples containing indocyanine green. Bili Indirect See NoteComment: 0.0 - 0.9 [facility] Unable to calculate mg/dL [facility] Indirect Bilirubin result due to some parameters are outside reportable range Specimen Blood Narrative [facility] [place] - 12:50 PM JIGSAW OPERATOR Early Sepsis Intervention Performing Organization Address [facility] Phon e Number [facility] CANCER Unless otherwise noted, [address] all lab tests performed by: Division of Pathology and Laboratory Medicine [address] [place] [address] TMP Interpretation Antibody Screen Negative (04/13/2021 12:09 PM JIGSAW OPERATOR)Only the most recent of2 resultswithin the time period is included. [facility] TMP Auto Neg ABSC At the present time, patien t plasma shows no evidence of RBC alloantibodies. [facility] Interp Comment: [facility] MD Vladimir WARNER Dictated by: MD Vladimir WARNER Dictated Date/Time: 04.14.19 11:01 AM JIGSAW OPERATOR Transcribed Date/Time: 04.14.2021 11:01 AM JIGSAW OPERATOR Electronically Signed By: MD Vladimir WARNER on 04.14.2021 11:01 AM Specimen Blood Performing Organization Address [facility] Phon e Number [facility] [place] Unless otherwise noted, [address] all lab tests performed by: Division of Pathology and Laboratory Medicine [facility] [address] [place] ABORh (04/13/2021 12:09 PM JIGSAW OPERATOR)Only the most recent of2 resultswithin the time period is included. Pathologist Sig nature ABORh. AB NEG [facility] [place] Specimen Blood Narrative [facility] [place] - 2 3:29 PM JIGSAW OPERATOR Early Sepsis Intervention Performing Organization Address [facility]/ZIP [facility] Phon e Number [facility] [place] Unless otherwise noted, [address] all lab tests performed by: Division of Pathology and Laboratory Medicine [address] [place] [address] Blood Culture- Peripheral (04/13/2021 12:09 PM JIGSAW OPERATOR) Final Report No growth [facility] [place] Path Review - Culture yield may be affecte d by sample quality, prior treatment, and transportation conditions. [facility] Bottle/Isolator ... CANCER CENTER The results have been reviewed and electronically sign ed by Pathologist: Juan Miguel Shabazz MD, PhD #[id number] Specimen Blood Performing Organization Address [facility] Phon e Number [facility] [place] Unless otherwise noted, [address] all lab tests performed by: Division of Pathology and Laboratory Medicine [address] [place], [place] [address]d Antibody Screen (04/13/2021 12:09 PM JIGSAW OPERATOR)Only the most recent of2 resultswithin the time period is included. Pathologist Sig nature ABSC. Negative ABSC BANNERE R Specimen Blood Narrative [facility] [place] - 2 3:26 PM JIGSAW OPERATOR Early Sepsis Intervention Performing Organization Address City/[facility] Phon e Number [facility] CANCER Unless otherwise noted, [address] all lab tests performed by: Division of Pathology and Laboratory Medicine [address] [place] [address] [place] ALT (04/13/2021 12:09 PM JIGSAW OPERATOR)Only the most recent of9 resultswithin the time period is included. Pathologist Sig nature ALT 11 <=41 U/L [facility] [place] Specimen Blood Narrative [facility] [place] - 2 12:50 PM JIGSAW OPERATOR Early Sepsis Intervention Performing Organization Address City/[facility]/ZIP [facility] Phon e Number [facility] CANCER Unless otherwise noted, [address] all lab tests performed by: Division of Pathology and Laboratory Medicine [address] [place] Aspartate Aminotransferase (04/13/2021 12:09 PM JIGSAW OPERATOR)Only the most recent of9 resultswithin the time period is included. Pathologist Sig nature AST 19 <=40 U/L [facility] [place] Specimen Blood Narrative [facility] [place] - 2 12:50 PM JIGSAW OPERATOR Early Sepsis Intervention Performing Organization Address [facility] Phon e Number [facility] [place] Unless otherwise noted, [address] all lab tests performed by: Division of Pathology and Laboratory Medicine [address] [place] (ABNORMAL) Total Protein (04/13/2021 12:09 PM JIGSAW OPERATOR)Only the most recent of8 resultswithin the time period is included. Pathologist Sig nature Total Protein 8.6 (H) 6.4 - 8.3 g/dL [facility] [place] Specimen Blood Narrative [facility] [place] - 2 12:50 PM JIGSAW OPERATOR Early Sepsis Intervention Performing Organization Address [facility] Phon e Number [facility] [place] Unless otherwise noted, [address] all lab tests performed by: Division of Pathology and Laboratory Medicine [address] [place] Phosphorus Level (04/13/2021 12:09 PM JIGSAW OPERATOR)Only the most recent of8 resultswithin the time period is included. Pathologist Sig nature Phosphorus 3.7 2.5 - 4.5 mg/dL [facility] [address] Specimen Blood Narrative [facility] [place] - 2 12:50 PM JIGSAW OPERATOR Early Sepsis Intervention Performing Organization Address [facility] Phon e Number [facility] CANCER Unless otherwise noted, [address] all lab tests performed by: Division of Pathology and Laboratory Medicine [address] [place] (ABNORMAL) Alkaline Phosphatase (04/13/2021 12:09 PM JIGSAW OPERATOR)Only the most recent of 8 resultswithin the time period is included. Pathologist Sig nature Alk Phos 184 (H) 40 - 129 U/L [facility] [place] Specimen Blood Narrative [facility] [place] - 2 12:50 PM JIGSAW OPERATOR Early Sepsis Intervention Performing Organization Address [facility] Phon e Number [facility] ADMINISTRATION [facility] [place] Unless otherwise noted, [address] all lab tests performed by: Division of Pathology and Laboratory Medicine [address] [place] Magnesium Level (04/13/2021 12:09 PM JIGSAW OPERATOR)Only the most recent of13 resultswithin the time period is included. Pathologist Sig nature Magnesium 1.9 1.6 - 2.6 mg/dL [facility] TER Specimen Blood Narrative [facility] [place] - 2 12:50 PM JIGSAW OPERATOR Early Sepsis Intervention Performing Organization Address [facility] Phon e Number [facility] [place] Unless otherwise noted, [address] all lab tests performed by: Division of Pathology and Laboratory Medicine [address] Calcium Level (04/13/2021 12:09 PM JIGSAW OPERATOR)Only the most recent of8 resultswithin the time period is included. Pathologist Sig nature Calcium Lvl 10.1 8.4 - 10.2 mg/dL [facility] NTER Specimen Blood Narrative [facility] [place] - 2 12:50 PM JIGSAW OPERATOR Early Sepsis Intervention Performing Organization Address [facility] Phon e Number [facility] [place] Unless otherwise noted, [address] all lab tests performed by: Division of Pathology and Laboratory Medicine [address] Albumin Level (04/13/2021 12:09 PM JIGSAW OPERATOR)Only the most recent of8 resultswithin the time period is included. Pathologist Sig nature Albumin Lvl 4.8 3.5 - 5.2 gm/dL [facility] TER Specimen Blood Narrative [facility] - 2 12:50 PM JIGSAW OPERATOR Early Sepsis Intervention Performing Organization Address [facility] Phon e Number [facility] [place] Unless otherwise noted, [address] all lab tests performed by: Division of Pathology and Laboratory Medicine [address] POC Troponin I (04/13/2021 12:01 PM JIGSAW OPERATOR) POC CTNI 0.02 0.00 - 0.08 POC TELCOR Comment: ng/mL This cTnI test is performed by the Pyexa-jz-Vbva sacha zer method, and the result may be different from the Clinical Labo ratory Method. Abnormal test results are recommended for conf irmatory test by Clinical laboratory method. Patients with norm al test results but clinically suspicious for acute myocardial infarction should be tested by Clinical Laboratory method. Method description: The Trop onin I (cTnI) uses a two-site enzyme-linked immunosorbent assay (NIRMAL) method. Antibodies specific for human cardiac troponin I (cTnI) are located on an electrochemical sens or fabricated on a silicon chip. The whole blood is brought into contact with th e sensors allowing the enzyme conjugate to dissolve into the sample. The enzyme bound to the antibody/antigen/antibody sandwich cleaves the substrate releasing an electrochemically detectable product. The electrochemical (amperometric) sensor measur es this enzyme product which is proportional to the concentration of cTnI within the sample. POC Clean Dev Yes POC TELCOR [facility] [place] POC [facility]COR [facility], [address] [place] [address]; Speech Assistant: Daniela Coley MD Specimen Blood Performing Organization Address City/State/ZIP Code Phon e Number POC TELCOR (ABNORMAL) POC VBG+Lac (04/13/2021 11:59 AM JIGSAW OPERATOR) POC VB pH 7.34 7.31 - 7.41 POC TELCOR POC VB pCO2 47 41 - 51 mmHg POC TELCOR POC VB pO2 47 mmHg POC TELCOR POC VB TCO2 27 24 - 29 mEq/L POC TELCOR POC VB Bicarb 26 23 - 28 POC TELCOR mmol/L POC VB Base Ex -1 -2 - 3 mmol/L POC TELCOR POC VB O2 Sat 80 % POC TELCOR POC VB LAC 4.0 (H) 0.9 - 1.7 POC TELCOR Comment: mmol/L Method description: The i-ST AT is an analyzer used for in vitro quantification of various analytes in whole blood. The device uses a single disposable cartridge which contains microfabricated sensors, a calibration solution, fluidics system, and a waste chamber. Each test cartridge contains chemically sensitive biosensors on a silicon chip that are configured to perform specific tests. The microfabricated sensors measure analyte concentration by an electrochemical assay. POC Sample Type Venous POC TELCOR POC Clean Dev Yes POC TELCOR Performing Lab [facility] [place]: POC T[facility]COR [facility] Clinical [facility], [address] [facility], [place] [address]; Speech Assistant: Daniela Coley MD Specimen Blood Performing Organization Address City/State/ZIP Code Phon e Number POC LOLA DIGGS COVID-19 (DEIDRE-CoV-2) PCR Asymptomatic (03/09/2021 1:45 PM JIGSAW OPERATOR)Only the most recent of2 resultswithin the time period is included. Pathologist [facility] COVID19 SARS Pre-Out of OR [facility] Indication Procedure [facility] COVID19 SARS Result Not Detected Not Detected [facility] COVID19 SARS SARS-CoV-2 NOT Detected. [facility] Reference Range: Not Detected Methodology: The Dutton Real Time SARS-CoV-2 assay is a qualitative real-time reverse check out clerk polymerase chain reaction (principal examiner-PCR) test to detect RNA from SARS-CoV-2 in nasal, nasopharyngeal and oropharyngeal swabs from patients with signs and symptoms of infection who ar e suspected of COVID-19 by their health care provider. The Dutton RealTime SARS-CoV-2 performed on the OffiSync000 System is a dual target assay with primers and probes for the RdRp and N genes. Results must be interpreted within the context of all relevant clinical and laboratory findings, and epidemiological risk factors. Positive results are indicative of the presence of SARS-CoV-2 RNA; clinical correlation with patient history and other diagnostic information is ne cessary to determine patient infection status. Positive results do not rule out bacterial infection or co-infection with other viruses. Negative results do not preclude SARS- CoV-2 infection and should not be used as the sole basis for patient management decisions. The Dutton RealTime SARS-CoV -2 assay is for in vitro diagnostic use under FDA Emergency Use Authorization only. Testing is limited to laboratories certified under the Clinical Laboratory Improvement Danae ndments of 1988 (CLIA), 42U.S.C. 263a, to perform high complexity tests. The T est was performed by the CLIA-certified, high- complexity Molecular Diagnostics Laboratory (MDL) at [facility] under the Food and Drug Administration (FDA) s Emergency Use Authorization. Factsheet for patients: https://www.[facility].org/Abb ottFactSheetPatients Factsheet for healthcare pro viders: https://www.[facility].org/AbbottFactSheetHCP Test performed by: [facility] [address] [place] [address] Specimen Nasopharyngeal Swab Performing Organization Address City/[facility] Phon e Number [facility] CANCER Unless otherwise noted, [address] all lab tests performed by: Division of Pathology and Laboratory Medicine [address] [place] [address] [place] TSH (03/08/2021 1:32 PM JIGSAW OPERATOR)Only the most recent of3 resultswithin the time period is included. Pathologist Sig nature TSH 1.07 0.27 - 4.20 mcunit/mL [facility] ER CENTER Specimen Blood Performing Organization Address [facility] Phon e Number [facility] CANCER Unless otherwise noted, [address] all lab tests performed by: Division of Pathology and Laboratory Medicine [address] [place] [address] Free T4 (03/08/2021 1:32 PM JIGSAW OPERATOR)Only the most recent of3 resultswithin the time period is included. Pathologist Sig nature T4 Free 1.12 0.93 - 1.70 ng/dL [facility] CANCER C ENTER Specimen Blood Performing Organization Address [facility] Phon e Number [facility] CANCER Unless otherwise noted, [address] all lab tests performed by: Division of Pathology and Laboratory Medicine [address] [place] [address] HSV/VZV DNA Detection (02/11/2021 12:15 AM CDT) HSV/VZV Specimen Eye - L [facility] HSV-1 DNA Negative Negative [facility] HSV-2 DNA Negative Negative [facility] VZV DNA Negative Negative [facility] Comment: [facility] HSV 1+2/VZV DNA is a nucleic acid amplification test (NAAT) intended for the qualitative detection and differentiation of herpes simplex virus type 1, herpes simplex virus type 2, and varicella-zoster v irus DNA isolated and purified from cutaneous or mucocutaneous lesions from symptomatic patients. Reference Range: DNA Negative When invalid results are obt ained, a new specimen should be collected for repeat testing if clinically indicated. Specimen Lesion Performing Organization Address City/[facility] Phon e Number [facility] [place] Unless otherwise noted, [address] all lab tests performed by: Division of Pathology and Laboratory Medicine [address] [place] [address] MRI BRAIN W CONTRAST - FRAMELESS GAMMA KNIFE (02/03/2021 10:14 AM CDT) Specimen Impressions [id number] - 02/03/2021 2:09 PM CDT 1. Redemonstration of 2 enhancing intr acranial metastases. 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 Findings: Reidentified are 2 enhancing l esions within the right parietal and occipital lobes measuring up to 17 mm with surrounding T1 hypointensity reflective of edema resulting in minimal local mass e ffect. The ventricles are age-appropriat e in size and configuration. 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 Findings: Reidentified are 2 enhancing l esions within the right parietal and occipital lobes measuring up to 17 mm with surrounding T1 hypointensity reflective of edema resulting in minimal local mass effect. The ventricles are age-appropriate in si ze and configuration. IMPRESSION: 1. Redemonstration of 2 enhancing intra cranial metastases. Performing Organization Address City/State/ZIP Code Phon e Number [id number] Free T3 (01/25/2021 2:18 PM CDT) Pathologist Sig [facility] Free T3 2.6 2.0 - 4.4 pg/mL [facility] CANCER [facility] TER Specimen Blood Performing Organization Address City/State/ZIP Code Phon e Number [facility] CANCER Unless otherwise noted, [place] [address] CENTER all lab tests performed by: Division of Pathology and Laboratory Medicine [facility] [facility] CT Chest Abdomen Pelvis with Contrast (01/11/2021 2:23 PM CDT) Specimen Impressions [id number] - 01/11/2021 2:52 PM CDT * Right lower lobe primary tumor and clark metastases in the subcarinal and right infrahilar regions have decreased. * Persistent interstitial opacities in the right lower lobe that may represent lymphangitic spread of the tumor or lymphatic obstruction. * Small nonspecific lung nodules are s table. No new nodules. * Nonspecific 1 cm lymph node in the u pper abdomen is increased in size and can be reassessed on follow-up CT. Narrative [id number] - 01/11/2021 2:52 PM CDT FULL RESULT: Examination: CT CHEST ABDOMEN PELVIS W C ONTRAST, 01/11/2021 2:23 PM Clinical History: Squamous cell carcinom a, NOS of lower lobe, lung <Right> Indication: non-small cell lung cancer, restaging Comparison: PET/CT 09/27/2020. Technique: CT of the chest, abdomen, pel vis was performed with intravenous contrast. Findings: Right lower lobe mass is decreased in si ze measuring 4.2 x 3.7 cm, previously 7.8 x 6.5 cm, image 93 of series 6. Right lower lobe anterior segmental bronchus is obstructed. The mass is extending to the right infrahilar region and encasing th e right inferior pulmonary vein. Interstitial opacities in the right lower lobe remain unchanged. Small nonspecific lung nodules are stable (images 19, 27, 35, 37 and 47 of series 7). No new nodules. Subcarinal lymph node is decreased in si ze measuring 0.6 cm, previously 0.9 cm, image 67 series 6. Contiguous right infrahilar lymphadenopathy is also decreased. No new lymphadenopathy. Small right pleural effusion. Heart size is normal. No pericardial eff usion. Scattered coronary artery calcifications. Lipomatous hypertrophy of the interatrial septum. Perigastric lymph node in the upper abdo men has increased in size measuring 1.0 cm, previously 0.6 cm, image 170. Small low-density lesion in the inferior right hepatic lobe likely representing a cyst/hemangioma. The gallbladder, pancreas, spleen and adrenals are unremarkable. Right renal cyst is stable. No hydronephrosis. Small and large bowel loops are normal i n caliber. Advanced aortoiliac atherosclerosis. No significant pelvic lymphadenopathy. Urinary bladder and prostate are unremar kable. No suspicious skeletal lesions. Advanced degenerative disease of the spine Procedure Note Sam Hong MD - 01/11/2021 FULL RESULT: Examination: CT CHEST ABDOMEN PELVIS W C ONTRAST, 01/11/2021 2:23 PM Clinical History: Squamous cell carcinom a, NOS of lower lobe, lung <Right> Indication: non-small cell lung cancer, restaging Comparison: PET/CT 09/27/2020. Technique: CT of the chest, abdomen, pel vis was performed with intravenous contrast. Findings: Right lower lobe mass is decreased in si ze measuring 4.2 x 3.7 cm, previously 7.8 x 6.5 cm, image 93 of series 6. Right lower lobe anterior segmental bronchus is obstructed. The mass is extending to the right infrahilar region and encasing the right inferior pulmonary vein. Interstitial opacities in the right lower lobe remain unchanged. Small nonspecific lung nodules are stable (images 19, 27, 35, 37 and 47 of series 7). No new nodules. Subcarinal lymph node is decreased in si ze measuring 0.6 cm, previously 0.9 cm, image 67 series 6. Contiguous right infrahilar lymphadenopathy is also decreased. No new lymphadenopathy. Small right pleural effusion. Heart size is normal. No pericardial eff usion. Scattered coronary artery calcifications. Lipomatous hypertrophy of the interatrial septum. Perigastric lymph node in the upper abdo men has increased in size measuring 1.0 cm, previously 0.6 cm, image 170. Small low-density lesion in the inferior right hepatic lobe likely representing a cyst/hemangioma. The gallbladder, pancreas, spleen and adrenals are unremarkable. Right renal cyst is stable. No hydronephrosis. Small and large bowel loops are normal i n caliber. Advanced aortoiliac atherosclerosis. No significant pelvic lymphadenopathy. Urinary bladder and prostate are unremar kable. No suspicious skeletal lesions. Advanced degenerative disease of the spine IMPRESSION: * Right lower lobe primary tumor and no fantasma metastases in the subcarinal and right infrahilar regions have decreased. * Persistent interstitial opacities in the right lower lobe that may represent lymphangitic spread of the tumor or lymphatic obstruction. * Small nonspecific lung nodules are st able. No new nodules. * Nonspecific 1 cm lymph node in the up per abdomen is increased in size and can be reassessed on follow-up CT. Performing Organization Address City/State/ZIP Code Phon e Number [id number] POC Creatinine (01/11/2021 1:21 PM CDT) POC Crea 1.0 0.6 - 1.3 POC TELCOR Comment: mg/dL Medications, especially hydr oxyurea or supplements, such as ascorbate, can interfere with test results causing a falsely and significantly higher result than expected. If a problem is suspected with a patient's result, a sample should be sent to the laboratory for confirmatory testing. Method description: The i-ST AT is an analyzer used for in vitro quantification of various analytes in whole blood. The device uses a single disposable cartridge which contains microfabricated sensors, a calibration solution, fluidics system, and a waste chamber. Each test cartridge contains chemically sensitive biosensors on a silicon chip that are configured to perform specific tests. The microfabricated sensors measure analyte concentration by an electrochemical assay. POC eGFR-AA 85 >=60 POC TELCOR Comment: mL/min/1.73 m2 Normal eGFR >= 60 mL/min/1.73 m2 The eGFR is calculated using the CKD-EPI equation. The eGFR declines with age. eGFR <60 mL/min/1.73 m2 is considered as "decreased" This equation should only be used for patients 18 and older. According to the National dney Foundation's Kidney Disease Outcome Quality Initiative (KDOQI) classification and 2012 Kidney Disease Improving Global Outcomes (KDIGO) Clinical Practice Guideline, the stage of CKD should be categorized based on estimated GFR. Stage Description GFR mL/min/1.73 m2 1 Kidney damage with normal or high GFR >=90 2 Kidney damage with mild decrease in GFR 60-89 3a Mild to moderate decrease in GFR 45-59 3b Moderate to severe decrease in GFR 30-44 4 Severe decrease in GFR 15-29 5 Kidney failure <15 (or dialysis) POC eGFR-RIGOBERTO 73 >=60 POC TELCOR Comment: mL/min/1.73 m2 Normal eGFR >= 60 mL/min/1.73 m2 The eGFR is calculated using the CKD-EPI equation. The eGFR declines with age. eGFR <60 mL/min/1.73 m2 is considered as "decreased" This equation should only be used for patients 18 and older. According to the National dney Foundation's Kidney Disease Outcome Quality Initiative (KDOQI) classification and 2012 Kidney Disease Improving Global Outcomes (KDIGO) Clinical Practice Guideline, the stage of CKD should be categorized based on estimated GFR. Stage Description GFR mL/min/1.73 m2 1 Kidney damage with normal or high GFR >=90 2 Kidney damage with mild decrease in GFR 60-89 3a Mild to moderate decrease in GFR 45-59 3b Moderate to severe decrease in GFR 30-44 4 Severe decrease in GFR 15-29 5 Kidney failure <15 (or dialysis) POC Clean Dev Yes POC TELCOR [facility] P[facility] [place] ,[facility], [place] [address], Point of Care Speech Assistant: Yashira Delaney MD Specimen Blood Performing Organization Address City/[facility]/ZIP Code Phon e Number POC TELCOR Tissue Slides Material Request (01/11/2021 12:21 PM CDT) Specimen Tissue Performing Organization Address [facility] Phon e [place] [address] [address] Glucose, Random (12/03/2020 2:42 PM CDT)Only the most recent of5 resultswithin the time period is included. Glucose Random 109 70 - 199 mg/dL [facility] Comment: CANCER CENTER Effective 11/04/15, the gluco se reference intervals have been updated based on [place] Diabetes Association guidelines (Standards of Medical Care in Diabetes 2016. Diabetes Care 2016; 39: S13-S22). Fasting blood glucose: Normal: 70-99 mg/dL Impaired fasting glucose (in creased risk for diabetes or pre-diabetes): 100- 125 mg/dL Diabetes mellitus: >/=126 mg/dL Random blood glucose: Normal: 70-199 mg/dL Note: Random glucose >100 mg/dL is assoc iated with increased risk for diabetes Specimen Blood Narrative [facility] - 3:57 PM CDT Within 72 hours prior to each chemothera py infusion. Performing Organization Address City/State/ZIP Code Phon e Number [facility] CANCER Unless otherwise noted, [place] [address] CENTER all lab tests performed by: Division of Pathology and Laboratory Medicine [address] [place] Confirm ABORh (11/02/2020 1:18 PM CDT) Pathologist Sig nature ABORh Confirm. AB NEG [facility] CANCER CENT ER Specimen Blood Performing Organization Address City/[facility]/ZIP Code Phon e Number [facility] CANCER Unless otherwise noted, [place] [address] [place] all lab tests performed by: Division of Pathology and Laboratory Medicine [address] [place] X-ray Chest 1 View (11/02/2020 1:03 PM CDT) Specimen Impressions [id number] - 11/02/2020 1:07 PM CDT No acute infiltrates are detected. 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 Findings: Abnormal opacity in the medial aspect of the right lung base is consistent with the known lung cancer. No interval infiltrates, effusions or suspicious pulmonary nodules are radiographically apparent. H eart size is within normal limits. Aorta is torturous and demonstrates atherosclerotic calcification. No interval change in mediastinal contours. 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 Findings: Abnormal opacity in the medial aspect of the right lung base is consistent with the known lung cancer. No interval infiltrates, effusions or suspicious pulmonary nodules are radiographically apparent. Heart size is within normal limits. Aorta is torturous and demonstrates atherosclerotic calcification. No interval change in mediastinal contours. IMPRESSION: No acute infiltrates are detected. Performing Organization Address City/[facility]/ZIP Code Phon e Number [id number] EKG, 12-Lead (Portable) (11/02/2020) Specimen Narrative This result has an attachment that is no t available. Performing Organization Address City/[facility]/ZIP Code Phon e Number [id number] Solid Tumor Genomic Assay Fusions 2018 Interpretation and Report (10/22/2020 11:19 AM CDT) Specimen Narrative This result has an attachment that is no t available. Solid Tumor Genomic Assay DNA 2018 Interpretation and Report (10/22/2020 11:19 AM CDT) Specimen Narrative This result has an attachment that is no t available. Bilirubin Total (10/19/2020 1:01 PM CDT) Bili Total 0.3 <=1.2 mg/dL [facility] Comment: DIAGNOSTIC CENTER Indocyanine Green (ICG) may cause falsely elevated bilirubin results. Total and direct bilirubin must not be measured from samples containing indocyanine green. False elevation of total [place] irubin can be seen in patients with IgG concentrations above 28 g/L. Specimen Blood Narrative [facility] DIAGNOSTIC CENTER - 10/19 1:47 PM CDT Within 72 hours prior to chemotherapy. Performing Organization Address City/State/ZIP Code Phon e Number [facility] DIAGNOSTIC Unless otherwise noted, [place], [place] [address] CENTER all lab tests performed by: Division of Pathology and Laboratory Medicine [address] [place] (ABNORMAL) SPIROMETRY W/O DILATORS, DLCO AND BODY PLETHSMOGRAPHIC LUNG VOLUMES (10/07/2020 3:08 PM CDT) Pathologist Sig nature FVC (L) pre 3.723 3.078 - 4.842 L [place] FEV1 (L) pre 2.644 2.121 - 3.612 L [place] FEV1/FVC (%) pre 71.008 63.100 - 82.456 % [place] DLCO_SB ml/(min*mmHg) 14.171 12.211 - 28.798 [place] ml/(min*mmHg) DLCOc_SB ml/(min*mmHg) 16.225 12.211 - 28.798 [place] ml/(min*mmHg) TLC (L) 7.358 5.591 - 7.894 L [place] RV (L) 3.635 (H) 1.990 - 3.339 L [place] RV/TLC (%) 49.402 33.838 - 51.802 % [place] FVC (% pred) pre 94 % [place] FEV1 (%pred) pre 92 % [place] FEV1/FVC (% pred) pre 98 % [place] TLC (% pred) 109 % [place] RV (% pred) 136 % [place] RV/TLC (% pred) 115 % [place] DLCO_SB (% pred) 69 % [place] DLCOc_SB (% pred) 79 % [place] Specimen Narrative This result has an attachment that is no t available. Performing Organization Address City/State/ZIP Code Phon e Number [place] PETCT Subsequent Treatment Strategy (10/07/2020 9:50 AM CDT) Specimen Impressions [id number] - 10/07/2020 10:31 AM CDT FDG avid right lower lobe 7.8 cm primary tumor with clark metastases in the subcarinal and right hilar regions. Interstitial process in the right lower lobe suspicious for lymphatic obstruction or lymph angitic spread of tumor. No distant meta stases. Narrative [id number] - 10/07/2020 10:31 AM CDT FULL RESULT: Examination: FDG PET/CT, 10/07/2020 9:50 AM Clinical History: Right lower lobe lung squamous cell cancer Indication: Initial staging Comparison: 09/10/2020 CT chest Technique: F-18 fluorodeoxyglucose (FDG) 8.1 mCi was administered intravenously via left antecubital vein. To allow for distribution and uptake of radiotracer, the patient was asked to rest quietly fo r approximately 60-90 minutes. PET/CT imaging was performed from the skull to upper thighs. Serum blood glucose at the time of the injection was 112 mg/dL. CT scanning was done for attenuation correct ion, image registration, and diagnosis w ith scan parameters optimized to minimize radiation exposure to the patient. SUV measurements are reported as maximum SUV based on body weight unless otherwise specified. Findings: The right lower lobe lobular solid mass measures 7.8 cm, SUV 18.8 abutting the mediastinal pleura in the azygoesophageal recess and encasing the right inferior pulmonary vein. The interstitial process i n the right lower lobe is unchanged and may represent lymphatic obstruction or lymphangitic spread of tumor. A calcified granuloma is seen in the left upper lobe. FDG avid clark metastases are seen in t he right hilum measuring 1.8 cm, SUV 13. 8 and the subcarinal region measuring 0.9 cm, SUV 6.0. Coronary artery calcification is present. Atherosclerotic calcification of the aorta is noted. No pleural effusions. The liver, spleen, pancreas, adrenals, k idneys, and gallbladder are unremarkable. No bone metastases. FDG avid facet osteoarthritis is seen in the left lower cervical spine with SUV of 4.4 on image 91 of series 4. Procedure Note Vandana Avery MD - 10/07/2020 FULL RESULT: Examination: FDG PET/CT, 10/07/2020 9:50 AM Clinical History: Right lower lobe lung squamous cell cancer Indication: Initial staging Comparison: 09/10/2020 CT chest Technique: F-18 fluorodeoxyglucose (FDG) 8.1 mCi was administered intravenously via left antecubital vein. To allow for distribution and uptake of radiotracer, the patient was asked to rest quietly for approximately 60-90 minutes. PET/CT avtar ging was performed from the skull to upper thighs. Serum blood glucose at the time of the injection was 112 mg/dL. CT scanning was done for attenuation correction, image registration, and diagnosis with scan pa rameters optimized to minimize radiation exposure to the patient. SUV measurements are reported as maximum SUV based on body weight unless otherwise specified. Findings: The right lower lobe lobular solid mass measures 7.8 cm, SUV 18.8 abutting the mediastinal pleura in the azygoesophageal recess and encasing the right inferior pulmonary vein. The interstitial process in the right lower lobe is unchanged and may represent lymp hatic obstruction or lymphangitic spread of tumor. A calcified granuloma is seen in the left upper lobe. FDG avid clark metastases are seen in the right hilum measuring 1.8 cm, SUV 13.8 and the subcarinal region measuring 0.9 cm, SUV 6.0. Coronary artery calcification is present. Atherosclerotic calcification of the aorta is noted. No pleural effusions. The liver, spleen, pancreas, adrenals, k idneys, and gallbladder are unremarkable. No bone metastases. FDG avid facet osteoarthritis is seen in the left lower cervical spine with SUV of 4.4 on image 91 of series 4. IMPRESSION: FDG avid right lower lobe 7.8 cm primary tumor with clark metastases in the subcarinal and right hilar regions. Interstitial process in the right lower lobe suspicious for lymphatic obstruction or lymphangitic spread of tumor. No distant metastases. Performing Organization Address City/State/[facility] Code Phon e Number [id number] EML4/ALK Fusion Analysis Material Request (10/05/2020 6:48 PM CDT) Pathologist [facility] nature Archived Material Previously diagnosed [facility] tissues from [place] [address] were selected for molecular analysis. Results will be reported separately. Specimen Tissue Performing Organization Address City/State/ZIP Code Phon e Number [facility] [place] [address] [address] Barber MD ROS1 Fusion Analysis Material Request (10/05/2020 6:48 PM CDT) Pathologist Sig nature Archived Material Previously diagnosed [facility] tissues from [place] [address] were selected for molecular analysis. Results will be reported separately. Specimen Tissue Performing Organization Address City/State/ZIP Code Phon e Number [facility] [place] [address] [address] MD RET Fusion Analysis Material Request (10/05/2020 6:48 PM CDT) Pathologist [facility] Archived Material Previously diagnosed [facility] tissues from [place] [address] were selected for molecular analysis. Results will be reported separately. Specimen Tissue Performing Organization Address City/State/ZIP Code Phon e Number [facility] [place] [address] [address] MD NTRK3 Fusion Analysis Material Request (10/05/2020 6:48 PM CDT) Pathologist [facility] Archived Material Previously diagnosed [facility] tissues from [place] [address] were selected for molecular analysis. Results will be reported separately. Specimen Tissue Performing Organization Address City/State/ZIP Code Phon [place] [address] [address] MD NTRK2 Fusion Analysis Material Request (10/05/2020 6:48 PM CDT) Pathologist [facility] nature Archived Material Previously diagnosed [facility] tissues from [place] [address] were selected for molecular analysis. Results will be reported separately. Specimen Tissue Performing Organization Address City/State/ZIP Code Phon [place] [address] [address] MD NTRK1 Fusion Analysis Material Request (10/05/2020 6:48 PM CDT) Pathologist Sig nature Archived Material Previously diagnosed [facility] tissues from [place] [address] were selected for molecular analysis. Results will be reported separately. Specimen Tissue Performing Organization Address City/State/Z[place] [address] [address] MD KRAS Mutation Material Request (10/05/2020 6:48 PM CDT) Pathologist Sig nature Archived Material Previously diagnosed [facility] tissues from [place] [address] were selected for molecular analysis. Results will be reported separately. Specimen Tissue Performing Organization Address City/State/Z[place] [address] [address] MD EGFR Mutation Material Request (10/05/2020 6:48 PM CDT) Pathologist Sig nature Archived Material Previously diagnosed [facility] tissues from [place] [address] were selected for molecular analysis. Results will be reported separately. Specimen Tissue Performing Organization Address City/[facility]/ZIP [place] [address] [address] MD BRAF V600 E Mutation Material Request (10/05/2020 6:48 PM CDT) Pathologist Sig nature Archived Material Previously diagnosed [facility] tissues from [place] [address] were selected for molecular analysis. Results will be reported separately. Specimen Tissue Performing Organization Address City/State/[place] [address] [address] [place] IHC PD-L1 Material Request (10/05/2020 6:48 PM CDT) Specimen Tissue Performing Organization Address City/State/[place] [address] [address] [place] FISH ROS1 Material Request (10/05/2020 6:48 PM CDT) Specimen Tissue Performing Organization Address City/State/[place] [address] [address] [place] FISH RET Rearrangement Material Request (10/05/2020 6:48 PM CDT) Specimen Tissue Performing Organization Address City/State/[place] [address] [address] [place] FISH MET Material Request (10/05/2020 6:48 PM CDT) Specimen Tissue Performing Organization Address City/State/[place] [address] [address] [place] FISH ALK translocation Material Request (10/05/2020 6:48 PM CDT) Specimen Tissue Performing Organization Address City/State/ZIP Code Phon e [place] [place] [address] [address] [place] LB Liquid Biopsy Panel V1 Interpretation and Report (10/05/2020 2:51 PM CDT) Specimen Narrative This result has an attachment that is no t available. LB EML4/ALK Fusion Analysis Collection, Blood (10/05/2020 2:51 PM CDT) Pathologist Sig nature Molecular Diagnostics Yes [facility] ER (Received) [place] Specimen Blood Performing Organization Address City/[facility]/ZIP Code Phon e Number [facility] CANCER Unless otherwise noted, [address] all lab tests performed by: Division of Pathology and Laboratory Medicine [facility] [place] LB ROS1 Fusion Analysis Collection, Blood (10/05/2020 2:51 PM CDT) Pathologist Sig [employer] Molecular Diagnostics Yes [facility] ER (Received) [place] Specimen Blood Performing Organization Address City/[facility]/ZIP Code Phon e Number [facility] CANCER Unless otherwise noted, [address] all lab tests performed by: Division of Pathology and Laboratory Medicine [address] [place] LB RET Fusion Analysis Collection, Blood (10/05/2020 2:51 PM CDT) Pathologist Sig nature Molecular Diagnostics Yes [facility] ER (Received) [place] Specimen Blood Performing Organization Address City/State/ZIP Code Phon e Number [facility] CANCER Unless otherwise noted, [address] all lab tests performed by: Division of Pathology and Laboratory Medicine [address] [place] LB MET Mutation Analysis Collection, Blood (10/05/2020 2:51 PM CDT) Pathologist Sig nature Molecular Diagnostics Yes [facility] ER (Received) [place] Specimen Blood Performing Organization Address City/State/ZIP Code Phon e Number [facility] CANCER Unless otherwise noted, [address] all lab tests performed by: Division of Pathology and Laboratory Medicine Shahana Barber LB ERBB2 Full Gene Mutation Analysis Collection, Blood (10/05/2020 2:51 PM CDT) Pathologist Sig nature Molecular Diagnostics Yes [facility] ER (Received) [place] Specimen Blood Performing Organization Address City/State/ZIP Code Phon e Number [facility] CANCER Unless otherwise noted, [address] all lab tests performed by: Division of Pathology and Laboratory Medicine Shahana Barber LB BRAF Mutation Analysis Collection, Blood (10/05/2020 2:51 PM CDT) Pathologist Sig nature Molecular Diagnostics Yes [facility] ER (Received) [place] Specimen Blood Performing Organization Address City/[facility]/ZIP Code Phon e Number [facility] CANCER Unless otherwise noted, [address] all lab tests performed by: Division of Pathology and Laboratory Medicine Shahana Barber MD NGS Blood Control (10/05/2020 2:51 PM CDT) Pathologist Sig nature Molecular Diagnostics Yes [facility] ER (Received) [place] Specimen Blood Performing Organization Address City/State/ZIP Code Phon e Number [facility] CANCER Unless otherwise noted, [address] all lab tests performed by: Division of Pathology and Laboratory Medicine Shahana Barber Research Protocol [id number] (10/05/2020 2:51 PM CDT) Pathologist Sig [employer] Research Prot [id number] [facility] Specimen Blood Narrative [facility] [place] - 1 7:47 AM CDT Please contact Eric Harris \\T\\ Jamaal Chua for blood pickup Performing Organization Address City/State/ZIP Code Phon e Number [facility] CANCER Unless otherwise noted, [address] all lab tests performed by: Division of Pathology and Laboratory Medicine Shahana Barber LDH (10/05/2020 2:51 PM CDT) LDH 205Comment: Results 135 - 225 U/L [facility] greater than 1651 U/L DIAGNOSTIC CENTER may not be reliable due to matrix effect with extended dilution as it exceeds the practice specialist s recommended limit. Caution should be exercised when interpreting such values and done in conjunction with clinical context. Specimen Blood Performing Organization Address City/[facility] Code Phon e Number [facility] DIAGNOSTIC Unless otherwise noted, [place] [address] CENTER all lab tests performed by: Division of Pathology and Laboratory Medicine Shahana Barber COVID-19 (SARS-CoV-2) PCR-Asymptomatic [facility] (10/03/2020 12:51 PM CDT) COVID19 (SARS Not Detected Not Detected [facility] CoV-2) Result Comment: [facility] This test is a qualitative r everse-transcriptase polymerase chain reaction (RT- PCR) developed for the Sylvie SHAWN Y[employer] Florally0 system and intended for the detection of SARS CoV-2 RNA in human nasopharyngeal specimens from patients who meet COVID-19 clinical and/or epidemiological crite dmitriy. This assay has been approved by the FDA for use only under Emergency Use Authorization (EUA) in laboratories that have been CLIA-certified to perform moderate-complexity and high-complexity tests. The performance characteristics of this assa y were verified by the Microbiology Laboratory at [facility], CLIA Accreditation #: [id number] and CAP Accreditation #: [id number]. Results must be interpreted within the context of all relevant clinical and laboratory findings and shou ld not form the sole basis for a diagnosis or treatment decision. "Presumptive Positive" resul ts are due to partial amplification of SARS-CoV-2 targets and indicates low amounts of virus present in the specimen at or near the limit of detection. Regardless, individuals with "Presumptive Positive" results should be managed per institutional gu idelines as individuals positive for SARS-CoV-2 virus, including use of appropriate infection control protocols. Internal controls are includ ed to assess for possible amplification inhibitors. If inhibition is detected, testing is repeated and if inhibition is confirmed the specimen is resulted as "Invalid". When an "Invalid" result occur, it is recommended to wait 3 days before submitting a new specimen for elizabeth ting if clinically indicated. COVID19 SARS PLASTIC MAKER [facility] CANCER CENTER COVID19 SARS New Patient [facility] Indication CANCER CENTER Specimen Nasopharyngeal Swab Performing Organization Address City/[facility]/ZIP Code Phon e Number [facility] CANCER Unless otherwise noted, [place] [address] CENTER all lab tests performed by: Division of Pathology and Laboratory Medicine [facility] CG ALK FISH Interpretation and Report (09/16/2020 6:30 PM CDT) Specimen Narrative This result has an attachment that is no t available. CG ROS1 FISH Interpretation and Report (09/16/2020 6:30 PM CDT) Specimen Narrative This result has an attachment that is no t available. CG MET FISH Interpretation and Report (09/16/2020 6:30 PM CDT) Specimen Narrative This result has an attachment that is no t available. CG RET FISH Interpretation and Report (09/16/2020 6:30 PM CDT) Specimen Narrative This result has an attachment that is no t available. Cytogenetics Specimen Collection -FFPE (09/16/2020 6:30 PM CDT) Jolie Ap Link [id number]: [facility] CENTER date/time has been modified to: 18:30:00. Previous collection date/time: 18:30:00. Cytogenetics YesComment: [facility] (Received) Collection [facility] date/time has been modified to: 18:30:00. Previous collection date/time: 18:30:00. Specimen FFPE Performing Organization Address City/State/ZIP Code Phon e Number [facility] CANCER Unless otherwise noted, [place] [address] CENTER all lab tests performed by: Division of Pathology and Laboratory Medicine [address] [facility] OS Chest (09/16/2020 2:03 PM CDT) Specimen Narrative Systemgenerated, Documentation - 021 2:03 PM CDT Study acquired at another institution. For comparison only. No [facility] originated interpretation requested or a vailable. Pathology Outside Interpretation (09/16/2020) Materials Accession#, Stained, Block, Unstained Collected Receiv ed [facility] Received A. [id number], 36 SS, 0 BLOCKS, 0 USS 09/16/2020 10/03/19 Addendum 1 Additional material received on 10/09/2020, Outside 22150, 0 SS, 1 BLOCK, 0 USS, collected on 09/16/2020. [facility] Addendum electronically This addendum is issued to report additional immunohis tochemical stain; signed by Cristal Felton MD on Immunoperoxidase staining fo r PD-L1 (clone [id number]) shows membranous staining in ~ 40 % of tumor cells, 2+ intensity. at 5:34 PM OR/UK Diagnosis Received 36 slides ([id number]) designated as follows: [facility] Electronically signed by Stephan Lymph node, station 11L, fine needle aspiration - MD Jigar on No metastatic carcinoma identified 10/03/2020 at 10:25 Cellular evidence of lymph node sampling AM B Lymph node, station 7, fine needle aspiration - No metastatic carcinoma identified Cellular evidence of lymph node sampling C Lymph node, station 4R, fine needle aspiration - No metastatic carcinoma identified Cellular evidence of lymph node sampling D Lymph node, station 12R, fine needle aspiration - SQUAMOUS CELL CARCINOMA E Lung, right lower lobe, fine needle aspiration and core biopsy- SQUAMOUS CELL CARCINOMA Comment Confirmatory [facility] immunoperoxidase stains, performed on cell block sections (E2) at the referring institution and submitted for review with appropriate controls, are interpreted as follows: positive - p40; negative - TTF-1 and Napsin. Biomarker Block E2 (IHC/FISH) [facility] Block(s) Block E4 (NGS) Disclaimer "Some tests reported here [facility] may have been developed and performance characteristics determined by [facility] Pathology and Laboratory Medicine. These tests have not been specifically cleared or approved by the U.S. Food and Drug Administration. If applicable, controls were reviewed and showed appropriate reactivity." Specimen Tissue Performing Organization Address City/State/ZIP Code Phon e Number [facility] [place] [address] [address] [place] [address] Chest (09/10/2020 2:04 PM CDT) Specimen Narrative Systemgenerated, Documentation - 021 2:04 PM CDT Study acquired at another institution. For comparison only. No [facility] originated interpretation requested or a vailable. after 06/20/2020 Insurance Payer Benefit Plan Subscriber ID Effective Phone Address Typ e / Group Dates MEDICARE MEDICARE PART [id number] 2010-Pres [phone] [place] Medicare A AND B ent [id number] [facility] [place] [address] [place] [employer] [id number] 2020-Pres [address] [employer] ONLY ent [id number] [place] [address] (Work) [phone] Steve Camarillo Personal/Family Self 1945 [id number] ([address]) [address] [place] [address] Advance Directives Code Status Date Activated Date Inactivated Comments Full Code 04/13/2021 2:51 PM 04/15/2021 10:12 AM Full Code 02/10/2021 9:39 PM 02/11/2021 6:34 PM Care Teams Manager Medicare Relationship Specialty Start Date End Date Edmond Herron PCP - External Primary Family Practice 09/30/20 MD Aleksandr Care Provider [address] [place] [phone] Lily Ibarra MD PCP - General Thoracic Medicine 09/30/[address] [place] [id number] Christopher Ceja MD Physician Radiation Oncology 10/16/20 [address] [place] [address] Rod Schreiber MD Consulting Physician Ophthalmology 02/26/[address] [place] [id number]
[2021-06-20 05:12] LABS: Urine Blood Negative (Negative); Urine Glucose Negative (Negative); Urine Protein Negative (Negative); Urine Specific Gravity 1.015 (1.005-1.030)
--- OUTSIDE RECORDS SUMMARY | 2021-06-20 05:16 | XMS REPORT | Continuity of Care Document ---
:1945 Author Organization [facility] t Address [address] [place] [address] Care Team Providers Name Role Phone GOPAL Primary Care Physician Unavailable SYSTEM, NOT IN Attending Clinician Unavailable Anthony PETERSEN Attending Clinician Unavailable GOPAL Attending Clinician Unavailable MICHELLE Attending Clinician Unavailable Gopal DIGGS Attending Clinician KRISTINA Attending Clinician Unavailable GIANFRANCO Attending Clinician Unavailable CHATO ALMARAZ Attending Clinician Unavailable PATTI Attending Clinician Unavailable Lio FONSECA Attending Clinician Unavailable Chris REY Attending Clinician Unavailable Redd TARIQ Attending Clinician Unavailable BETTY Attending Clinician Unavailable Vin CHRISTIANSEN Attending Clinician Unavailable NICHOLE Attending Clinician Unavailable Anthony NG Attending Clinician Unavailable Giselle WALLACE Attending Clinician Unavailable SOLOMON Attending Clinician Unavailable CRAIG Attending Clinician Unavailable LUKE MYERS Attending Clinician Unavailable NICHOLE Attending Clinician Unavailable Doctor Unassigned, Name Attending Clinician Unavailable PHILLIP Attending Clinician Unavailable MD ALDA FISHER Attending Clinician Unavailable YULIANA Attending Clinician Unavailable DIMITRY Attending Clinician Unavailable MD DIMITRY Attending Clinician Unavailable SAMARA Attending Clinician Unavailable BAMBI Attending Clinician Unavailable Anthony PETERSEN Admitting Clinician Unavailable EMILY Admitting Clinician Unavailable Vin CHRISTIANSEN Admitting Clinician Unavailable MD ALDA FISHER Admitting Clinician Unavailable DIMITRY Admitting Clinician Unavailable MD DIMITRY Admitting Clinician Unavailable Payers Payer Name Policy Policy Number Effective Expiration Source Type Date Date MEDICARE PART A AND B [id number] 2010 00:00:00 AARP-SECONDARY ONLY [id number] 2020 00:00:00 MEDICARE PART A \\T\\ B [id number] 2010 00:00:00 MEDICAID OF [place] [id number] 2021 00:00:00 WELLCARE MEDICARE NON [id number] 2018 Uni versity of CONTRACTEDWELLCARE 00:00:00 [place] Medical MEDICARE NON Branch [id number]/2018-PresentMedicare Adv PPO AARP-UNITED [id number] 2020 University o f HEALTHCAREUNITED 00:00:00 [facility] dicms HEALTHCARE MEDICARE Bran h [id number] /04/2020-Present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 Branch Essential Essential Disease Active Uni vers hypertensi hypertensi 1-11 it y of on on 00:00: [place] 00 [facility] Branch Type 2 Type 2 Disease Active Univers diabetes diabetes 1-11 ity of mellitus mellitus 00:00: [place] 00 [facility] Branch Allergies, Adverse Reactions, Alerts Allergy Allergy Status Severity Reaction(s) Onset Inactive Treating Comm ents Source Name Type Date Date Clinician Statins- Propensi Active Unknown - Was on Uni vers Hmg-Coa ty to See comments 6-12 zetia in i ty of Reductas adverse 00:00: past and [place] e reaction 00 had Medical Inhibito s severe Branch rs PVD STATINS- Drug Active Unknown-Cmnt Un arsen HMG-COA Class 6-12 ity of REDUCTAS 00:00: [place] E 00 Medical INHIBITO Branch RS Social History Social Habit Start Date Stop Date Quantity Comments Source History of tobacco Snuff User Univer sity of use [facility] Exposure to Not sure [facility] SARS-CoV-2 (event) [facility] Alcohol intake 2021-04-13 2021-04-13 Current University of 00:00:00 00:00:00 non-drinker of [facility] alcohol Branch (finding) Cigarettes smoked 2020-07-02 2020-07-02 Univers ity of current (pack per 00:00:00 00:00:00 ) - Reported Branch Cigarette 2020-07-02 2020-07-02 University of pack-years 00:00:00 00:00:00 [facility] Tobacco use and 2020-07-02 2020-07-02 Current user Univers ity of exposure 00:00:00 00:00:00 [facility] Sex [birth year] Universit y of 00:00:00 00:00:00 [facility] Smoking Status Start Date Stop Date Source Current every day smoker 2020-09-17 00:00:00 Uni versity of [facility] Medications Ordered Filled Start Stop Current Ordering Indication Dosage Frequency Signature Comments Components Source Medication Medication Date Date Medication? Clinician (SIG) Name Name Transparent Yes [id number] Use as Univers Dressings 2-17 [id number] directed ity of (TEGADERM) 00:00: [place] 2 X 2 3/4 " 00 Medical Bndg Branch traMADoL 50 Yes [id number] TAKE ONE Un arsen mg tablet 2-16 TABLET BY ity o f 00:00: MOUTH FOUR [place] 00 TIMES A Medical DAY Branch NEEDED FOR PAIN Indication s: chronic pain carvediloL Yes [id number] TAKE 1 AND Univers 25 mg 2-09 1/2 TABLET ity of tablet 00:00: BY MOUTH [place] 00 TWO TIMES Medical A DAY Branch cefadroxil Yes [id number] 500mg Take 1 Univers 500 mg 2-09 capsule by ity of capsule 00:00: mouth 2 [place] 00 (two) Medical times Branch daily. mupirocin 2 Yes [id number] Apply to Univers % ointment 2-09 [id number] area(s) 3 it y of 00:00: (three) [place] 00 times Medical daily. Branch sulfamethox Yes [id number] 1{tbl} Take 1 Univers azole-trime 2-03 tablet by ity of thoprim 00:00: mouth 2 [place] (BACTRIM 00 (two) Medical DS) 800-160 times Branch mg per daily. tablet Insulin Yes [id number] INJECT Uni vers Glargine 1-20 70-100 ity of (LANTUS 00:00: UNITS [place] SOLOSTAR 00 UNDER THE Medica l U-100 SKIN DAILY Branch INSULIN) 100 unit/mL (3 mL) injection erythromyci 2020-04 Yes [id number] .5[in_u Place 0.5 Univers n 5 mg/gram 0-31 774580 s] Inches in i ty of (0.5 %) 00:00: left eye 4 [place] ophthalmic 00 (four) Medical ointment times Branch daily. Continue until you follow up with eye doctor. ciprofloxac 2020- No 500mg Take 1 Un arsen in HCl 500 4-28 05-09 tablet by ity of mg tablet 00:00: 04:59 mouth [place] 00 :00 every 12 Medical (twelve) Branch hours for 10 days. ciprofloxac Yes Lung mass 500mg Take 1 Univers in HCl 500 4-14 tablet by ity of mg tablet 00:00: mouth [place] 00 every 12 Medical (twelve) Branch hours. traMADoL 50 Yes chronic 2 po BID Univers mg tablet 3-25 pain Indication ity of 00:00: s: chronic [place] 00 pain Medical Branch metoclopram Yes Gastropares 10mg Take 1 Univers chavo HCl 10 3-25 is tablet by ity of mg tablet 00:00: mouth 4 [place] 00 (four) Medical times Branch daily. Insulin Yes Type 2 INJECT 70 Uni vers Glargine 3-25 diabetes UNITS ity of (LANTUS 00:00: mellitus UNDER THE [place] SOLOSTAR 00 without SKIN DAILY Me dical U-100 complicatio Branch INSULIN) n, with 100 unit/mL long-term (3 mL) current use injection of insulin amLODIPine Yes Essential 10mg Take 1 Univers 10 mg 3-25 hypertensio tablet by it y of tablet 00:00: n mouth [place] 00 daily. Medical Branch amoxicillin Yes Leukocytosi 1{tbl} Take 1 Univers -clavulanat 3-25 s, tablet by ity of e 00:00: unspecified mouth 2 [place] as (AUGMENTIN) 00 type (two) Medical 875-125 mg times Branch per tablet daily. METFORMIN Yes Type 2 TAKE ONE Un arsen 1,000 mg 1-19 diabetes TABLET BY it y of tablet 00:00: mellitus MOUTH [place] 00 without TWICE A Medical complicatio DAY Branch n, without long-term current use of insulin azithromyci 2019-0 Yes Other 500mg Take 1 Un arsen n 500 mg 6-10 infective tablet by i ty of tablet 00:00: acute mouth [place] 00 otitis daily. Medical externa of Branch left ear neomycin-po 2019-0 Yes Other 3[drp] Place 3 Univers lymyxin-hyd 6-06 infective Drops in ity of rocortisone 00:00: acute left ear 4 [place] 3.5-10,000- 00 otitis (four) Medi monica 1 externa of times Branch mg/mL-unit/ left ear daily. mL-% otic susp azithromyci 2019-0 Yes Bronchitis 250mg Take 1 Univers n 250 mg 4-20 tablet by ity of tablet 00:00: mouth [place] 00 daily. Medical Take 500 Branch mg day 1, then 250 mg days 2 to 5. benzonatate Yes Bronchitis 200mg Take 1 Univers 200 mg 3-18 capsule by ity of capsule 00:00: mouth 3 [place] 00 (three) Medical times Branch daily as needed for Cough. levoFLOXaci 2018- Yes Subacute 750mg Take 1 Univers n 750 mg 7-11 otitis tablet by ity of tablet 00:00: media, mouth [place] 00 unspecified every 24 Medi monica otitis (twenty-fo Branch media type ur) hours. hydrALAZINE Yes TAKE 2 Univ ers 10 mg 5-21 TABLET BY ity of tablet 00:00: MOUTH [place] 00 THREE Medical TIMES A Branch DAY cefUROXime 2018- Yes Acute 500mg Take 1 Uni vers 500 mg 5-01 mucoid tablet by ity of tablet 00:00: otitis mouth 2 [place] 00 media of (two) Medical left ear times Branch daily. 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 Medica l n (1.5 mL) Branch solution evolocumab 2017-04 Yes 140mg inject 140 Univers (REPATHA 2-06 mg under ity of SURECLICK) 00:00[place] mg/mL 00 Medical PnIj Branch lisinopril Yes 20mg Take 20 mg U nivers (PRINIVIL,Z 7-19 by mouth 2 it y of ESTRIL) 20 00:00: (two) [place] mg tablet 00 times Medical daily. Branch carvedilol 2014-04 Yes 1.5{tbl Take 1.5 Univers (COREG) 25 2-11 } Tabs by ity of mg tablet 00:00: mouth 2 [place] 00 (two) Medical times Branch daily. Vital Signs Vital Name Observation Time Observation Value Comments Source Systolic blood 2021-05-27 20:41:00 130 mm[Hg] Univer sity [facility] pressure [facility] Diastolic blood 2021-05-27 20:41:00 60 mm[facility]Hg] [facility] Body weight 2021-05-27 20:37:00 83.008 kg LAST WT [facility] BMI 2021-05-27 20:37:00 25.52 kg/m2 [facility] Procedures Procedure Date / Time Performed Performing Clinician [facility] e EXTERNAL PROVIDER 2020-08-13 05:01:00 Doctor Unassigned, No Univ [facility] RECORDS Name Medical Branch Plan of Care Planned Activity Planned Date Details Comments Source Future Scheduled 2022-02-28 Screening for [facility] Test 00:00:00 malignant neoplasm of Medica l Branch colon (procedure) [code = 644627764] Future Scheduled 2022-02-28 Screening for University [facility] Test 00:00:00 malignant neoplasm of Medica l Branch colon (procedure) [code = 359513157] Future Scheduled 2021-07-02 Depression screening Uni [facility] Test 00:00:00 (procedure) [code = Medical Branch 418727995] Future Scheduled 2020-12-09 INFLUENZA VACCINE Univer [facility] Test 00:00:00 (Season Ended) [code = Medic al Branch INFLUENZA VACCINE (Season Ended)] Future Scheduled 2018-07-13 [facility]inine [facility]00 (procedure) [code = Medical Branch 39702755] Future Scheduled 2018-02-21 Medicare Annual [facility] Test 00:00:00 Wellness Visit Medical [facility] h (procedure) [code = 428144032808301] Future Scheduled 2018-01-12 Hemoglobin A1c [facility] Test 00:00:00 measurement Medical Branch (procedure) [code = 49958313] Future Scheduled 2017-03-29 Examination of retina Un [facility] Test 00:00:00 (procedure) [code = Medical Branch [id number]] Future Scheduled 2016-11-24 Calculated low density U [facility] Test 00:00:00 lipoprotein Medical Branch cholesterol level (procedure) [code = 949542900] Future Scheduled 2000 Screening for [facility] Test 00:00:00 malignant neoplasm of Medica l Branch lung (procedure) [code = 176142975] Future Scheduled 1995-11-01 Screening for occult Uni [facility] Test 00:00:00 blood in feces Medical Branc h (procedure) [code = 869665396] Future Scheduled 1995-11-01 Stool DNA-based [facility] Test 00:00:00 colorectal cancer Medical Br anch screening (procedure) [code = 169338627761216] Future Scheduled 1995-11-01 Flexible fiberoptic [facility] Test 00:00:00 sigmoidoscopy Medical Branch (procedure) [code = 67683989] Future Scheduled 1995-11-01 Zoster Recombinant Unive [facility] [place] Test 00:00:00 Vaccine (SHINGRIX) (1 Medica l Branch of 2) [code = Zoster Recombinant Vaccine (SHINGRIX) (1 of 2)] Future Scheduled 1964 DTaP,Tdap,and Td Univers [facility] [place] [facility] Test 00:00:00 Vaccines (1 - Tdap) Medical Branch [code = DTaP,Tdap,and Td Vaccines (1 - Tdap)] Future Scheduled 1963-11-01 Diabetic foot [facility] Test 00:00:00 examination Medical Branch (regime/therapy) [code = 407927265] Future Scheduled 1955-11-01 Microalbumin [facility] Test 00:00:00 measurement, urine, Medical Branch quantitative (procedure) [code = 658344485] Future Scheduled 1945 Hepatitis C screening Un [facility] Test 00:00:00 (procedure) [code = Medical Branch [id number]] Encounters Start End Encounter Admission Attending Care Care Encounter Source Date/Time Date/Time Type Type Clinicians Facility Department ID 2021-06-01 Outpatient SYSTEM, JESS MERCADO [id number] 09:48:21 PROVIDER Jad ashraf 2021-04-16 Outpatient SYSTEMJESS MDA [id number] 14:20:38 PROVIDER Jad o n 2021-02-04 Outpatient NICOLA, JESS Gale/Hep/Nu [id number] 10:11:39 ELAINE ashraf 2021-01-29 Outpatient MDA MDA [id number] 10:05:54 Twyla ashraf 2020-10-28 Outpatient JOSE, MDA JESS [id number] 09:01:19 PROVIDER Jad ashraf 2021-06-16 2021-06-16 Outpatient Edy ELLIS [facility] [id number] Univers 10:00:00 10:00:00 MATTHEW [id number] [facility] 2021-06-16 2021-06-16 [facility] [id number] Univers 10:00:00 10:00:00 [facility] 2021-06-08 2021-06-08 [facility] [id number] Univers 13:30:00 13:30:00 MARLEE [id number] [facility] 2021-06-08 2021-06-08 [facility] [id number] Univers 13:30:00 13:30:00 [facility] [place] [facility] 2021-05-27 2021-05-27 [facility] [id number] Univers 14:15:00 14:30:00 Visit [facility] [id number] it y of [place] [id number] [place] DELORIS?BLEA [id number] [address] MEDICAL OFFICE BUILDING 2021-05-27 2021-05-27 [facility] [id number] Univers 14:15:00 14:15:00 [facility] 2021-05-14 2021-05-14 Outpatient YAKOV ACEVEDO, JESS MDA [id number] 13:02:27 13:02:27 KARYN ashraf 2021-04-27 2021-04-27 Outpatient YAKOV ACEVEDO MDA MDA [id number] 14:55:50 14:55:50 KARYN ashraf 2021-04-23 2021-04-23 Outpatient YAKOV MEDEL, MDA MDA [id number] 11:30:00 23:59:00 SUSANNE ashraf 2021-04-22 2021-04-22 Outpatient YAKOV ACEVEDO, MDA MDA [id number] 12:35:42 12:35:42 KARYN ashraf 2021-04-13 2021-04-15 Inpatient UR ISSA ALMARAZ [facility] [id number] 11:52:00 06:30:00 Jad ashraf 2021-03-23 2021-03-23 Outpatient TRINO ARMSTRONG [facility] [id number] [place] 00:00:00 00:00:[address] 2021-03-19 2021-03-19 Outpatient YAKOV MEDEL, MDA MDA [id number] 09:15:00 23:59:00 SUSANNE ashraf 2021-03-18 2021-03-18 Outpatient YAKOV FONSECA, MDA MDA [id number] 13:40:01 13:40:01 MEE ashraf 2021-03-14 2021-03-14 Emergency UR CHRISTAL REY MDA Emergency [id number] MD 14:06:00 16:59:00 Jad ashraf 2021-03-14 2021-03-14 Outpatient YAKOV ACEVEDO, MDA MDA [id number] 12:30:35 14:05:00 KARYN ashraf 2021-03-10 2021-03-10 Outpatient YAKOV ACEVEDO, MDA MDA [id number] 10:40:14 10:40:14 KARYN ashraf 2021-03-09 2021-03-09 Outpatient YAKOV ACEVEDO, MDA MDA [id number] 13:40:49 13:51:14 KARYN ashraf 2021-03-08 2021-03-08 Outpatient EL CHANDNI, MDA MDA [id number] 12:30:00 23:59:00 RIANNA ashraf 2021-03-08 2021-03-08 Outpatient YAKOV ACEVEDO, MDA MDA [id number] 13:35:03 15:04:46 KARYN ashraf 2021-02-10 2021-02-11 Inpatient ER HERNÁNDEZ, MDA Hosp Med [id number] 16:45:00 16:26:00 HERMINIO ashraf 2021-02-10 2021-02-10 Inpatient EL MOLINA MDA MDA [id number] 23:02:39 23:26:08 Wu GORDON 2021-02-04 2021-02-04 Outpatient EL GIANFRANCO, MDA MDA [id number] 08:53:03 09:47:27 SUSANNE ashraf 2021-02-03 2021-02-03 Outpatient EL NICOLA, MDA MDA [id number] 13:25:19 14:21:35 ELAINE ashraf 2021-02-03 2021-02-03 Outpatient EL KRISTINA, MDA MDA [id number] 10:45:55 11:00:37 KARYN ashraf 2021-02-03 2021-02-03 Outpatient EL MDA MDA [id number] 08:16:58 08:16:58 Jad ashraf 2021-02-01 2021-02-01 Outpatient EL JALILONE, MDA MDA [id number] 06:00:00 23:59:00 KARYN ashraf 2021-01-29 2021-01-29 Outpatient EL HADLEY VARELA MDA MDA [id number] 09:30:00 23:59:00 Jad ashraf 2021-01-25 2021-01-26 Outpatient EL HERNANDEZ, MDA MDA [id number] 16:46:46 07:27:08 MIRLANDE ashraf 2021-01-25 2021-01-25 Outpatient EL MDA MDA [id number] 07:45:00 23:59:00 Jad o pascale 2021-01-25 2021-01-25 Outpatient EL CASCONE, MDA MDA [id number] 14:19:27 16:40:41 KARYN ashraf 2021-01-25 2021-01-25 Outpatient EL MDA MDA [id number] 12:05:08 12:05:08 Jad ashraf 2021-01-12 2021-01-12 Outpatient EL MDA MDA [id number] 10:30:00 23:59:00 Jad ashraf 2021-01-12 2021-01-12 Outpatient EL CASCONE, MDA MDA [id number] 11:25:14 13:24:54 KARYN ashraf 2021-01-11 2021-01-11 Outpatient EL MDA MDA [id number] MD 12:27:41 12:27:41 Jad ashraf 2020-12-25 2020-12-25 Outpatient EL MEDEL, MDA MDA [id number] MD 10:58:56 23:59:00 SUSANNE ashraf 2020-12-04 2020-12-04 Outpatient EL CASCONE, MDA MDA [id number] 14:10:00 23:59:00 KARYN ashraf 2020-12-03 2020-12-03 Outpatient EL CASCONE, MDA MDA [id number] 13:51:24 23:59:00 KARYN ashraf 2020-12-03 2020-12-03 Outpatient EL CASCONE, MDA MDA [id number] 06:15:00 13:50:00 KARYN ashraf 2020-12-02 2020-12-02 Outpatient EL CASCONE, MDA MDA [id number] 14:25:00 23:59:00 KARYN ashraf 2020-12-02 2020-12-02 Outpatient EL CASCONE, MDA MDA [id number] 11:04:38 14:24:00 KARYN ashraf 2020-12-01 2020-12-01 Outpatient EL CASCONE, MDA MDA [id number] 13:54:50 23:59:00 KARYN ashraf 2020-11-30 2020-11-30 Outpatient EL CASCONE, MDA MDA [id number] 14:02:45 23:59:00 KARYN ashraf 2020-11-27 2020-11-27 Outpatient EL CASCONE, MDA MDA [id number] 14:12:51 23:59:00 KARYN ashraf 2020-11-26 2020-11-26 Outpatient EL CASCONE, MDA MDA [id number] 14:00:20 23:59:00 KARYN ashraf 2020-11-25 2020-11-25 Outpatient EL CASCONE, MDA MDA [id number] 13:16:20 23:59:00 KARYN ashraf 2020-11-24 2020-11-24 Outpatient EL CASCONE, MDA MDA [id number] 13:48:51 23:59:00 KARYN ashraf 2020-11-24 2020-11-24 Outpatient EL CHANDNI, MDA MDA [id number] MD 13:00:10 14:37:04 RIANNA ashraf 2020-11-23 2020-11-23 Outpatient EL CASCONE, MDA MDA [id number] 14:05:00 23:59:00 KARYN ashraf 2020-11-23 2020-11-23 Outpatient EL CASCONE, MDA MDA [id number] MD 13:45:00 14:04:00 KARYN ashraf 2020-11-20 2020-11-20 Outpatient EL CASCONE, MDA MDA [id number] MD 14:30:00 23:59:00 KARYN ashraf 2020-11-19 2020-11-19 Outpatient EL CASCONE, MDA MDA [id number] MD 14:10:00 23:59:00 KARYN ashraf 2020-11-18 2020-11-18 Outpatient EL CASCONE, MDA MDA [id number] MD 13:42:52 23:59:00 KARYN ashraf 2020-11-18 2020-11-18 Outpatient EL CASCONE, MDA MDA [id number] MD 13:27:13 13:41:00 KARYN ashraf 2020-11-18 2020-11-18 Outpatient EL CASCONE, MDA MDA [id number] 09:08:48 09:08:48 KARYN ashraf 2020-11-18 2020-11-18 Outpatient EL CASCONE, MDA MDA [id number] MD 08:16:45 08:16:45 KARYN ashraf 2020-11-17 2020-11-17 Outpatient EL CASCONE, MDA MDA [id number] MD 13:48:45 23:59:00 KARYN ashraf 2020-11-17 2020-11-17 Outpatient EL CASCONE, MDA MDA [id number] 13:29:03 13:47:00 KARYN ashraf 2020-11-16 2020-11-16 Outpatient EL CASCONE, MDA MDA [id number] 13:31:02 13:31:02 KARYN Hillers neel n 2020-11-13 2020-11-13 Outpatient EL CASCONE, MDA MDA [id number] 14:15:00 23:59:00 KARYN Hillers o n 2020-11-12 2020-11-12 Outpatient EL CASCONE, MDA MDA [id number] 13:47:23 23:59:00 KARYN Hillers neel n 2020-11-11 2020-11-11 Outpatient EL CASCONE, MDA MDA [id number] 14:10:00 23:59:00 KARYN Hillers neel ashraf 2020-11-10 2020-11-10 Outpatient EL CASCONE, MDA MDA [id number] 11:27:21 23:59:00 KARYN ashraf 2020-11-10 2020-11-10 Outpatient TRINO ARMSTRONG [facility] [id number] [place] 00:00:00 00:00:[address] 2020-11-09 2020-11-09 Outpatient EL CASCONE, MDA MDA [id number] 14:33:12 23:59:00 KARYN Hillers neel ashraf 2020-11-09 2020-11-09 Outpatient EL CASCONE, MDA MDA [id number] 12:45:07 15:02:27 KARYN Hillers neel ashraf 2020-11-09 2020-11-09 Outpatient EL CASCONE, MDA MDA [id number] 13:45:00 14:32:00 KARYN ashraf 2020-11-09 2020-11-09 Outpatient EL CASCONE, MDA MDA [id number] 12:00:00 13:44:00 KARYN Hillers neel ashraf 2020-11-06 2020-11-06 Outpatient EL CASCONE, MDA MDA [id number] 13:56:43 23:59:00 KARYN ashraf 2020-11-06 2020-11-06 Outpatient ARMSTRONGGIANNAREBECCA [facility] [id number] [place] 00:00:00 00:00:[id number] 2020-11-05 2020-11-05 Outpatient ADRIA MCGOVERN MDA MDA [id number] 13:35:46 23:59:00 Jad ashraf 2020-11-04 2020-11-04 Outpatient [facility], MDA MDA [id number] 14:15:00 23:59:00 KARYN ashraf 2020-11-04 2020-11-04 Outpatient EL SOLOMON, MDA MDA [id number] 14:57:04 14:57:04 KERA ashraf 2020-11-04 2020-11-04 Outpatient EL [facility], MDA MDA [id number] 12:20:13 12:20:13 KARYN ashraf 2020-11-02 2020-11-02 Emergency UR SRINIVASAN, MDA Emergency [id number] 12:16:00 21:03:00 CONOR ashraf 2020-11-02 2020-11-02 Outpatient EL SOLOMON, MDA MDA [id number] 00:00:00 00:00:00 KERA ashraf 2020-10-30 2020-10-30 Outpatient EL [facility], MDA MDA [id number] 13:55:34 23:59:00 KARYN ashraf 2020-10-30 2020-10-30 Outpatient [facility], MDA MDA [id number] 13:33:30 13:54:00 KARYN ashraf 2020-10-29 2020-10-29 Outpatient EL CASCONE, MDA MDA [id number] 14:07:57 23:59:00 KARYN ashraf 2020-10-28 2020-10-28 Outpatient EL CASCONE, MDA MDA [id number] 14:07:46 23:59:00 KARYN ashraf 2020-10-27 2020-10-27 Outpatient EL CASCONE, MDA MDA [id number] 13:51:09 23:59:00 KARNY ashraf 2020-10-26 2020-10-26 Outpatient EL CASCONE, MDA MDA [id number] 15:45:00 23:59:00 KARYN ashraf 2020-10-26 2020-10-26 Outpatient EL CASCONE, MDA MDA [id number] 14:00:00 15:44:00 KARYN ashraf 2020-10-26 2020-10-26 Outpatient EL CASCONE, MDA MDA [id number] 13:20:35 14:39:29 KARYN ashraf 2020-10-26 2020-10-26 Outpatient EL CASCONE, MDA MDA [id number] 12:30:00 13:59:00 KARYN ashraf 2020-10-26 2020-10-26 Outpatient EL CHANDNI, MDA MDA [id number] 13:22:11 13:22:11 RIANNA ashraf 2020-10-26 2020-10-26 Outpatient EL CASCONE, MDA MDA [id number] 12:33:04 12:33:04 KARYN ashraf 2020-10-26 2020-10-26 Outpatient EL CASCONE, MDA MDA [id number] 12:33:01 12:33:01 KARYN ashraf 2020-10-26 2020-10-26 Outpatient EL CASCONE, MDA MDA [id number] 12:00:00 12:29:00 KARYN ashraf 2020-10-26 2020-10-26 Outpatient EL CASCONE, MDA MDA [id number] 12:11:07 12:11:07 KARYN ashraf 2020-10-26 2020-10-26 Outpatient TRINO ARMSTRONG [facility] [id number] [place] 00:00:00 00:00:[address] 2020-10-23 2020-10-23 Outpatient EL CASCONE, MDA MDA [id number] 13:25:00 23:59:00 KARYN ashraf 2020-10-22 2020-10-22 Outpatient EL CASCONE, MDA MDA [id number] 14:25:00 23:59:00 KARYN ashraf 2020-10-22 2020-10-22 Outpatient EL CHANDNI, MDA MDA [id number] 11:16:00 14:24:00 RIANNA ashraf 2020-10-21 2020-10-21 Outpatient EL CASCONE, MDA MDA [id number] 11:30:00 23:59:00 KARYN ashraf 2020-10-21 2020-10-21 Outpatient EL CASCONE, MDA MDA [id number] 10:37:53 10:37:53 KARYN ashraf 2020-10-20 2020-10-20 Outpatient EL JALILONE, MDA MDA [id number] 14:10:00 23:59:00 KARYN ashraf 2020-10-19 2020-10-19 Outpatient EL CHANDNI, MDA MDA [id number] 13:08:26 23:59:00 RIANNA ashraf 2020-10-19 2020-10-19 Outpatient EL JALILONE, MDA MDA [id number] 12:42:30 13:07:00 KARYN ashraf 2020-10-16 2020-10-16 Outpatient EL LUCIA, MDA MDA [id number] 18:24:00 23:59:00 BRENDA ashraf 2020-10-16 2020-10-16 Outpatient YAKOV MEDEL, MDA MDA [id number] 09:00:00 18:23:00 SUSANNE ashraf 2020-10-15 2020-10-15 Outpatient EL GIANFRANCO, MDA MDA [id number] 09:19:00 23:59:00 SUSANNE ashraf 2020-10-13 2020-10-13 Outpatient HADLEY SEXTON MDA MDA [id number] 13:42:08 23:59:00 Jad ashraf 2020-10-13 2020-10-13 Outpatient EL KRISTINA, MDA MDA [id number] 11:51:35 14:36:14 KARYN ashraf 2020-10-13 2020-10-13 Outpatient EL JALILONE, MDA MDA [id number] 11:19:05 13:41:00 KARYN ashraf 2020-10-13 2020-10-13 Outpatient EL JALILONE, MDA MDA [id number] 06:00:00 11:18:00 KARYN ashraf 2020-10-08 2020-10-08 Outpatient EL CHANDNI, MDA MDA [id number] MD 18:06:52 18:06:52 RIANNA ashraf 2020-10-07 2020-10-07 Outpatient YAKOV VARELA RADHA MDA MDA [id number] 12:14:46 23:59:00 Jad o pascale 2020-10-07 2020-10-07 Outpatient EL MDA MDA [id number] MD 07:47:59 07:47:59 Jad o pascale 2020-10-05 2020-10-05 Outpatient EL RADHA VARELA MDA MDA [id number] MD 14:00:00 23:59:00 Jad o pascale 2020-10-05 2020-10-05 Outpatient EL JALILONE, MDA MDA [id number] 11:36:00 14:22:[address] o pascale 2020-10-05 2020-10-05 Outpatient EL MDA MDA [id number] MD 11:36:54 14:10:52 Jad o pascale 2020-10-05 2020-10-05 Outpatient EL HADLEY VARELA MDA MDA [id number] MD 11:36:27 11:36:27 Jad o pascale 2020-10-05 2020-10-05 Outpatient EL MDA MDA [id number] MD 11:30:43 11:31:17 Jad o pascale 2020-10-03 2020-10-03 Outpatient EL JALILONE, MDA MDA [id number] MD 12:46:55 13:09:32 KARYN ashraf 2020-10-02 2020-10-02 Outpatient EL CASCONE, MDA MDA [id number] MD 14:01:59 14:01:59 KARYN ashraf 2020-10-02 2020-10-02 Outpatient EL JALILONE, MDA MDA [id number] MD 14:01:53 14:01:53 KARYN ashraf 2020-07-21 2020-07-21 Outpatient PETRA FISHER [facility] [id number] [place] 00:00:00 00:00:[address] 2020-07-17 2020-07-17 Outpatient PETRA FISHER [facility] [id number] [place] 00:00:00 00:00:[address] 2020-07-17 2020-07-17 Outpatient TRINO ARMSTRONG [facility] [id number] [place] 00:00:00 00:00:[address] 2020-06-30 2020-06-30 Outpatient PETRA FISHER [facility] [id number] [place] 00:00:00 00:00:[address] 2020-06-23 2020-06-23 Outpatient PETRA FISHER [facility] [id number] [place] 00:00:00 00:00:[address] 2020-06-12 2020-06-12 Outpatient PETRA FISHER [facility] [id number] [place] 00:00:00 00:00:[address] 2020-06-12 2020-06-12 Outpatient PHILLIP MIN [facility] [id number] [place] 00:00:00 00:00:[address] 2020-04-14 2020-04-14 Outpatient PHILLIP MIN [facility] [id number] [place] 00:00:00 00:00:[address] 2020-04-14 2020-04-14 Outpatient PETRA FISHER [facility] [id number] [place] 00:00:00 00:00:[address] 2020-02-19 2020-02-19 Outpatient YULIANA, [facility] [id number] [place] 00:00:00 00:00:00 CIPRIANO [address] 2020-01-28 2020-01-29 Outpatient DIMITRY, [facility] [id number] [place] 00:00:00 00:00:00 GEMMA [address] 2020-01-28 2020-01-28 Outpatient SCHROTH, [facility] [id number] [place] 00:00:00 00:00:00 AMILCAR [address] 2020-01-09 2020-01-09 Outpatient SCHROTH, [facility] [id number] [place] 00:00:00 00:00:00 AMILCAR [address] 2020-01-07 2020-01-07 Outpatient SCHROTH, [facility] [id number] [place] 00:00:00 00:00:00 AMILCAR [address] 2020-01-01 2020-01-01 Outpatient SCHROTH, [facility] [id number] [place] 00:00:00 00:00:00 AMILCAR [address] 2020-01-01 2020-01-01 Outpatient SCHROTH, [facility] [id number] [place] 00:00:00 00:00:00 AMILCAR [address] 2019-10-25 2019-10-25 Outpatient TRINO ARMSTRONG [facility] [id number] [place] 00:00:00 00:00:[address] 2019-10-22 2019-10-22 Emergency BAMBI [facility] [id number] [place] 00:00:00 00:00:00 PADDY [address] Results Test Description Test Time Test Comments Results Result Comments Source SARS-CoV-2 (COVID-19) RNA [Presence] in Respiratory sp ecimen by 2020-07-17 17:49:44 RIGOBERTO with probe detection Test Item Value Reference Range Interpretation Comme nts SARS-CoV-2 (COVID-19) RNA [Presence] in Respiratory Not detected No t-Detected specimen by RIGOBERTO with probe detection (test code = 10855-7) SARS-CoV-2 (COVID-19) RNA [Presence] in Respiratory specimen by RIGOBERTO with probe [id number] 04:38:53 Test Item Value Reference Range Interpretation Comments SARS-CoV-2 (COVID-19) RNA Not detected Not-Detected [Presence] in Respiratory specimen by RIGOBERTO with probe detection (test code = 05298-5)
[2021-06-20 05:36] LABS: Absolute Lymphocytes (CBC) 0.5 K/uL (0.7-4.9); Hematocrit 34.6 % (39.6-49.0); Lymphocytes % 3.7 % (15.3-44.8); MPV 8.7 fL (7.6-11.3); RBC Red Blood Cell Count 4.05 M/uL (4.33-5.43)
[2021-06-20 05:53] LABS: Protime INR 1.03
[2021-06-20] MEDS ORDERED: dexAMETHasone 10 MG/ML VIAL ONE (05:56)
[2021-06-20 05:59] LABS: Potassium 3.7 mmol/L (3.5-5.1)
[2021-06-20 06:10] LABS: Urine Bacteria <20 /HPF (NONE SEEN); Urine RBC <5 /HPF (NONE SEEN)
[2021-06-20] MEDS ORDERED: LEVETIRACETAM 500 MG/5 ML VIAL IV ONE (06:14)
[2021-06-20] MEDS ORDERED: NA CHLORIDE 0.9% 0 ML ONE (06:14)
[2021-06-20] MEDS ORDERED: NA CHLORIDE 0.9% 0 ML IV ONE (06:26)
--- NOTE | 2021-06-20 06:40 | ER ---
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 Ebola Screen: No symptoms or risks identified at this time. Initial Sepsis Screen: Does the patient meet any 2 criteria? No. Patient's initial sepsis screen is negative. Does the patient have a suspected source of infection? No. Patient's initial sepsis screen is negative. Risk Assessment: Do you want to hurt yourself or someone else? Patient reports no desire to harm self or others. Onset of symptoms was June 20, 2021. 05:04 Method Of Arrival: EMS: [facility] kd3 05:04 Acuity: MORALES 3 kd3 05:05 Chief complaint:. sf1 05:17 Coronavirus screen: Vaccine status: Patient reports being unvaccinated. kd3 Triage Assessment: 05:06 General: Appears in no apparent distress. Behavior is agitated. Pain: Denies pain. kd3 Neuro: Level of Consciousness is awake, alert, obeys commands, Oriented to person, place, time, situation. Respiratory: Airway is patent Trachea midline Respiratory effort is even, unlabored. Historical: - Allergies: 07:46 No Known Allergies; jl7 - Home Meds: 05:07 carvedilol Oral [Active]; Isosorbide Mononitrate Oral [Active]; Lantus 100 unit/mL kd3 Sub-Q soln [Active]; Metformin Oral [Active]; 05:15 lisinopril 20 mg Oral tab 2 tabs once daily [Active]; amlodipine 10 mg tab 1 tab once kd3 daily [Active]; tramadol 50 mg Oral tab 1 tab every 6 hours for pain [Active]; albuterol sulfate 200 mcg Inhl cap [Active]; - PMHx: 05:07 Diabetes - NIDDM; Hyperlipidemia; Hypertension; kd3 05:15 lung cancer; brain mass; kd3 - Immunization history:: Adult Immunizations not up to date, Client reports having NOT received the Covid vaccine. - Family history:: not pertinent. - Social history:: Smoking status: Patient reports the use of cigarette tobacco products, smokes two packs cigarettes per day. - Hospitalizations: : No recent hospitalization is reported. Screenin:05 Abuse screen: Denies threats or abuse. Denies injuries from another. Nutritional kd3 screening: No deficits noted. Tuberculosis screening: No symptoms or risk factors identified. Fall Risk Gait- Weak (10 pts.). Assessment: 05:14 Reassessment: Patient and/or family updated on plan of care and expected duration. Pain kd3 level reassessed. Patient is alert, oriented x 3, equal unlabored respirations, skin warm/dry/pink. General: Appears in no apparent distress. Behavior is agitated. 07:00 Reassessment: Received report from NANETTE Eaton. NANETTE Eaton reports pt had a seizure last jl7 night, hx of cancer, awaiting transfer to [facility]. NANETTE Eaotn reports pt was belligerent and threatening to hit staff, pt's reported to staff he has been that way since having radiation on a brain mass. 07:30 Reassessment: Reassessment: Patient appears in no apparent distress at this time. Pt jl7 A\\T\\O x 4, denies pain, awaiting transfer at this time. 08:00 Reassessment: Pt A\\T\\Ox4, reports his leg is shaking, pt's left leg noted to have jl7 mild tremor lasting 5 - 10 seconds, pt remains alert. Pt reports he needs to pee, provided with urinal, pt noted to be wet of incontinence, pt's states "The nurses told me that he was wet when I came back here this morning. I asked about changing him but I think they were busy." Pt cleaned of incontinence, bedding changed, brief placed on pt, fresh warm blanket provided. 09:30 Reassessment: Pt reports RLQ abdominal pain, bowel sounds present, pain on palpation, jl7 reports needing to have a BM. Pt provided with bedside commode then reports not needing to have a BM. BP noted to be elevated. Dr. [facility] notified, see MAR for orders. 10:00 Reassessment: Pt's refused transfer to [facility] due to no visitor taina, Dr. chi [facility] notified. 10:20 Reassessment: Dr. [facility] at bedside, pt's agrees to transfer. Dr. [facility] gave jl7 VO to straight cath pt to drain bladder, bladder scanner shows 662 mL, Straight cath done, 800 mL out, pt tolerated well. 11:18 Reassessment: [facility] at bedside to transport pt, pt's refused transfer at this jl7 point, reports she wants to just take him home because she can't be with him at [facility]. Pt refused transfer. EMS assisted ER staff in assisting pt in private vehicle. Pt unable to bear weight and continues to refuse transport. Pt placed in front seat of daughters vehicle and seat belt fastened. Vital Signs: 05:06 BP 184 / 72; Pulse 93; Resp 17; Pulse Ox 99% ; kd3 05:15 Weight 83.91 kg; Height 5 ft. 11 in. (180.34 cm); kd3 06:33 Temp 98.3(O); kd3 07:46 BP 160 / 77; Pulse 94; Resp 15; Pulse Ox 100% ; jl7 08:30 BP 160 / 62; Pulse 81; Resp 15; Temp 98.5; Pulse Ox 99% ; jl7 09:30 BP 199 / 87; Pulse 93; Resp 15; Pulse Ox 98% ; jl7 10:23 BP 134 / 54; Pulse 103; Resp 15; Pulse Ox 99% ; jl7 05:15 Body Mass Index 25.80 (83.91 kg, 180.34 cm) kd3 Karmen Coma Score: 05:06 Eye Response: spontaneous(4). Verbal Response: oriented(5). Motor Response: obeys kd3 commands(6). Total: 15. 07:46 Eye Response: spontaneous(4). Verbal Response: oriented(5). Motor Response: obeys jl7 commands(6). Total: 15. 09:30 Eye Response: spontaneous(4). Verbal Response: oriented(5). Motor Response: obeys jl7 commands(6). Total: 15. ED Course: 05:01 Patient arrived in ED. wm 05:03 Tristan Busby MD is Attending Physician. rn 05:03 Meeta Hawkins, RN is Primary Nurse. kd3 05:05 Triage completed. kd3 05:07 Arm band placed on right wrist. kd3 05:13 Patient has correct armband on for positive identification. kd3 05:18 Seizure precautions initiated. kd3 05:26 CBC with Diff Sent. kd3 05:26 Basic Metabolic Panel Sent. kd3 05:26 Ptt, Activated Sent. kd3 05:26 Protime (+inr) Sent. kd3 05:27 Urine Microscopic Only Sent. kd3 05:55 CT Head Brain wo Cont In Process Unspecified. EDMS 06:19 initiated a transfer with Anne Marie from [facility]. transfer denied. mw2 06:22 Re initiated a transfer with Anne Marie from [facility]. mw2 06:54 COVID-19 SARS RT PCR (Document "Date of Onset" if Symptomatic) Sent. kd3 07:00 gelatin powder mixer on. Pulse ox on. NIBP on. jl7 07:00 Report received from NANETTE Eaton. jl7 07:23 Attending Physician role handed off by Tristan Busby MD jong 07:23 Ashish [facility] MD is Attending Physician. jong 07:46 No provider procedures requiring assistance completed. jl7 08:21 Warm blanket given. jw7 09:40 Warm blanket given. Cleaned of incontinence. jw7 10:39 Patient transferred, IV remains in place. intact, No redness/swelling at site. jl7 10:39 Bladder scan completed. 662 mL. Straight cath inserted, using sterile technique, 16 Fr. jl7 Returned clear yellow urine. Patient tolerated well. 11:18 IV discontinued, intact, bleeding controlled, No redness/swelling at site. Pressure jl7 dressing applied. 11:41 Primary Nurse role handed off by Meeta Hawkins, NANETTE sp 11:47 Beatriz Robles RN is Primary Nurse. jl7 Administered Medications: 05:55 Drug: Decadron - Dexamethasone 10 mg Route: IVP; Site: right wrist; kd3 07:00 Follow up: Response: No adverse reaction jl7 09:15 Drug: Keppra (levETIRAcetam) 1000 mg Route: IV; Rate: calculated rate; Site: right jl7 wrist; 09:30 Follow up: Response: No adverse reaction; IV Status: Completed infusion :49 Drug: fentaNYL (PF) 25 mcg Route: IVP; Site: right wrist; jl7 10:10 Follow up: Response: No adverse reaction; Pain is decreased 09:49 Drug: Zofran (Ondansetron) 4 mg Route: IVP; Site: right wrist; 10:48 Follow up: Response: No adverse reaction 09:50 Drug: amLODIPine 10 mg Route: PO; 10:49 Follow up: Response: No adverse reaction; Blood pressure is lowered 09:50 Drug: Lisinopril 20 mg Route: PO; 10:49 Follow up: Response: No adverse reaction; Blood pressure is lowered 7 09:50 Drug: Coreg (carvedilol) 25 mg Route: PO; 10:49 Follow up: Response: No adverse reaction; Blood pressure is lowered 10:48 Not Given (Other Intervention Used): fentaNYL (PF) 25 mcg IVP once; RASS on ADMIN: 7 Combtv4, Very Agttd3, Agttd2, Rstlss1, AlertClm0, Drwsy-1, Lt Sdtn-2, Mod Sdtn-3, Dp Sdtn-4, UnArsble-5 Outcome: 06:40 ER care complete, transfer ordered by MD. white 10:50 Transferred by ground EMS to other acute care facility: [facility]. Transfer form jl7 completed. 10:50 Condition: stable 10:50 Discharge instructions given to patient, family, Instructed on the need for transfer, Demonstrated understanding of instructions. 11:39 Discharge ordered by MD. sunshine 11:40 Patient left the ED. chi 11:47 Patient left the ED. jl7 Signatures: Dispatcher [employer] EDMS Ashish [facility] MD MD cha Pinkerton, Shawna sp Nieto, Roman, MD MD rn Leal, Jahala RN RN jl7 Clatyon Millan mw2 Yolande Munoz Kyli RN RN kd3 Nicol Gomez RN RN sf1 Tomasa Cid 7
--- NOTE | 2021-06-20 06:41 | EDPHYS ---
Physician Documentation [facility] Name: Steve Camarillo Age: 75 yrs Sex: Male : 1945 Arrival Date: 06/20/2021 Time: 05:01 Bed 6 Private MD: [facility] Physician Ashish Fields HPI: 06/20 05:07 This 75 yrs old Male presents to ER via EMS with complaints of Probable Seizure. rn 05:07 The patient presents after having a possible seizure episode. Character of seizure(s): rn Motor activity: focal activity, Incontinence: none, Apnea: the patient did not experience apnea, Circulation: the patient did not experience evidence of pulse disturbance. Seizure onset: just prior to arrival. Associated injury: The patient did not suffer any apparent associated injury. Current symptoms: Currently, the patient is not experiencing any symptoms. The patient has experienced similar episodes in the past. The patient has not recently seen a physician. EMS reports hx of active cancer, including brain cancer, on steroids for brain swelling, possibly had seizure activity tonight. Pt no longer undergoing treatment for cancer. No known trauma. Patient reports feels fine, has had seizure before, doesn't believe he takes seizure medication. Denies recent illness or feeling sick. No vomiting. Denies headache or focal neuro complaint. on her way for more information.. Historical: - Allergies: 07:46 No Known Allergies; jl7 - Home Meds: 05:07 carvedilol Oral [Active]; Isosorbide Mononitrate Oral [Active]; Lantus 100 unit/mL kd3 Sub-Q soln [Active]; Metformin Oral [Active]; 05:15 lisinopril 20 mg Oral tab 2 tabs once daily [Active]; amlodipine 10 mg tab 1 tab once kd3 daily [Active]; tramadol 50 mg Oral tab 1 tab every 6 hours for pain [Active]; albuterol sulfate 200 mcg Inhl cap [Active]; - PMHx: 05:07 Diabetes - NIDDM; Hyperlipidemia; Hypertension; kd3 05:15 lung cancer; brain mass; kd3 - Immunization history:: Adult Immunizations not up to date, Client reports having NOT received the Covid vaccine. - Family history:: not pertinent. - Social history:: Smoking status: Patient reports the use of cigarette tobacco products, smokes two packs cigarettes per day. - Hospitalizations: : No recent hospitalization is reported. ROS: 05:07 Constitutional: Negative for fever, chills, and weight loss, Eyes: Negative for injury, rn pain, redness, and discharge, Neck: Negative for injury, pain, and swelling, Cardiovascular: Negative for chest pain, palpitations, and edema, Respiratory: Negative for shortness of breath, cough, wheezing, and pleuritic chest pain, Abdomen/GI: Negative for abdominal pain, nausea, vomiting, diarrhea, and constipation, Back: Negative for injury and pain, : Negative for injury, bleeding, discharge, and swelling, MS/Extremity: Negative for injury and deformity, Skin: Negative for injury, rash, and discoloration, Neuro: Negative for headache, weakness, numbness, tingling Exam: 05:07 Constitutional: This is a well developed, well nourished patient who is awake, alert, rn and in no acute distress. Head/Face: Normocephalic, atraumatic. Eyes: Pupils equal round and reactive to light, extra-ocular motions intact. Periorbital areas with no swelling, redness, or edema. ENT: No tongue laceration Neck: Trachea midline, no masses palpated, and no cervical lymphadenopathy. Supple, full range of motion without nuchal rigidity, or vertebral point tenderness. No Meningismus. Cardiovascular: Regular rate and rhythm . No pulse deficits. Respiratory: No increased work of breathing, no retractions or nasal flaring. Abdomen/GI: Soft, non-tender Skin: Warm, dry MS/ Extremity: Pulses equal, no cyanosis. Neurovascular intact. Full, normal range of motion. Equal circumference. Neuro: Awake and alert, GCS 15, oriented to person, and situation. Cranial nerves II-XII grossly intact. Motor strength 4/5 in all extremities. Sensory grossly intact. 07:36 ECG was reviewed by the Attending Physician. [facility] 08:23 ECG was reviewed by the Attending Physician. [facility] Vital Signs: 05:06 BP 184 / 72; Pulse 93; Resp 17; Pulse Ox 99% ; kd3 05:15 Weight 83.91 kg; Height 5 ft. 11 in. (180.34 cm); kd3 06:33 Temp 98.3(O); kd3 07:46 BP 160 / 77; Pulse 94; Resp 15; Pulse Ox 100% ; jl7 08:30 BP 160 / 62; Pulse 81; Resp 15; Temp 98.5; Pulse Ox 99% ; jl7 09:30 BP 199 / 87; Pulse 93; Resp 15; Pulse Ox 98% ; jl7 10:23 BP 134 / 54; Pulse 103; Resp 15; Pulse Ox 99% ; jl7 05:15 Body Mass Index 25.80 (83.91 kg, 180.34 cm) kd3 Rutledge Coma Score: 05:06 Eye Response: spontaneous(4). Verbal Response: oriented(5). Motor Response: obeys kd3 commands(6). Total: 15. 07:46 Eye Response: spontaneous(4). Verbal Response: oriented(5). Motor Response: obeys jl7 commands(6). Total: 15. 09:30 Eye Response: spontaneous(4). Verbal Response: oriented(5). Motor Response: obeys jl7 commands(6). Total: 15. MDM: 05:03 Patient medically screened. rn 06:17 Differential diagnosis: seizure, cerebral edema, brain mass, electrolyte disorder. Data rn reviewed: vital signs, nurses notes, lab test result(s), EKG, radiologic studies, CT scan, and as a result, I will admit patient. Counseling: I had a detailed discussion with the patient and/or guardian regarding: the historical points, exam findings, and any diagnostic results supporting the discharge/admit diagnosis, lab results, radiology results, the need to transfer to another facility, for higher level of care. Response to treatment: the patient's condition has returned to base line, the patient is now symptom free, and as a result, I will admit patient. 06:20 ED course: Pt's requests transfer to [facility] for seizure activity. Attempted strategy intern to [facility], told by their staff that they are at capacity. [facility]. . 11:30 ED course: pt transferred to [facility], explained importance of the transfer, , jong seizures, worsening of condition is eminent, explained transfer is in patients best interest, with the covid status pt and refused transfer, understands worsening of condition and possible even are very likely . 06/20 05:05 Order name: CBC with Diff; Complete Time: 05:51 rn 06/20 05:05 Order name: Basic Metabolic Panel; Complete Time: 06:05 rn 06/20 05:05 Order name: Protime (+inr); Complete Time: 06:05 rn 06/20 05:05 Order name: Ptt, Activated; Complete Time: 06:05 rn 06/20 05:05 Order name: Urine Microscopic Only; Complete Time: 06:18 rn 06/20 05:05 Order name: CT Head Brain wo Cont; Complete Time: 06:58 rn 06/20 05:11 Order name: Urine Dipstick-Ancillary; Complete Time: 05:16 EDMS 06/20 06:31 Order name: COVID-19 SARS RT PCR (Document "Date of Onset" if Symptomatic); Complete lp1 Time: 09:33 06/20 05:05 Order name: IV Start; Complete Time: 05:26 rn 06/20 05:05 Order name: Cardiac monitoring; Complete Time: 05:06 rn 06/20 05:05 Order name: O2 Sat Monitoring; Complete Time: 05:06 rn 06/20 05:05 Order name: EKG; Complete Time: 05:08 rn 06/20 05:05 Order name: EKG - Nurse/Tech; Complete Time: 05:43 rn 06/20 05:05 Order name: Urine Dipstick-Ancillary (obtain specimen); Complete Time: 05:27 rn 06/20 08:19 Order name: EKG; Complete Time: 08:19 jong 06/20 08:19 Order name: EKG - Nurse/Tech; Complete Time: 08:47 jong 06/20 09:35 Order name: Misc. Order: give all usual meds, coreg, lisinopril , norvasc; Complete jong Time: 10:03 06/20 10:45 Order name: Gray; Complete Time: 10:48 jong 06/20 10:45 Order name: Bladder Scanner; Complete Time: 10:48 jong EC:36 Rate is 79 beats/min. Rhythm is regular. QRS [place] is Normal. [place] interval is normal. QRS jong interval is normal. QT interval is normal. No Q waves. T waves are Normal. No ST changes noted. Clinical impression: NSR w/ Non-specific ST/T Changes and No evidence of ischemia. Interpreted by me. Reviewed by me. 08:23 Rate is 101 beats/min. Rhythm is regular. QRS [place] is Normal. [place] interval is normal. jong QRS interval is normal. QT interval is normal. No Q waves. T waves are Normal. No ST changes noted. Clinical impression: NSR w/ Non-specific ST/T Changes and No evidence of ischemia. Interpreted by me. Reviewed by me. Administered Medications: 05:55 Drug: Decadron - Dexamethasone 10 mg Route: IVP; Site: right wrist; kd3 07:00 Follow up: Response: No adverse reaction jl7 09:15 Drug: Keppra (levETIRAcetam) 1000 mg Route: IV; Rate: calculated rate; Site: right jl7 wrist; 09:30 Follow up: Response: No adverse reaction; IV Status: Completed infusion jl7 09:49 Drug: fentaNYL (PF) 25 mcg Route: IVP; Site: right wrist; jl7 10:10 Follow up: Response: No adverse reaction; Pain is decreased jl7 09:49 Drug: Zofran (Ondansetron) 4 mg Route: IVP; Site: right wrist; jl7 10:48 Follow up: Response: No adverse reaction jl7 09:50 Drug: amLODIPine 10 mg Route: PO; jl7 10:49 Follow up: Response: No adverse reaction; Blood pressure is lowered jl7 09:50 Drug: Lisinopril 20 mg Route: PO; jl7 10:49 Follow up: Response: No adverse reaction; Blood pressure is lowered jl7 09:50 Drug: Coreg (carvedilol) 25 mg Route: PO; jl7 10:49 Follow up: Response: No adverse reaction; Blood pressure is lowered jl7 10:48 Not Given (Other Intervention Used): fentaNYL (PF) 25 mcg IVP once; RASS on ADMIN: jl7 Combtv4, Very Agttd3, Agttd2, Rstlss1, AlertClm0, Drwsy-1, Lt Sdtn-2, Mod Sdtn-3, Dp Sdtn-4, UnArsble-5 Disposition Summary: 06/20/21 11:39 Discharge Ordered Location: Home jong Problem: an acute exacerbation(06/20/21 11:39) jong Symptoms: are unchanged(06/20/21 11:39) jong Condition: Serious(06/20/21 11:39) jong Diagnosis - Epileptic seizures related to external causes, not intractable jong - Cerebral edema - vasogenic , seconday to metastatic mass jong - Weakness jong - COPD/ Chronic obstructive pulmonary disease with (acute) exacerbation jong - Retention of urine, unspecified - 800 cc(06/20/21 11:39) jong - Neoplasm of uncertain behavior of trachea, bronchus and lung jong Followup: jong - With: Private Physician - When: Upon discharge from the Emergency Department - Reason: Recheck today's complaints, Continuance of care, Re-evaluation by your physician Discharge Instructions: - Discharge Summary Sheet jong - Chronic Obstructive Pulmonary Disease jong - Seizure, Adult jong - Weakness jong - Chronic Obstructive Pulmonary Disease, Abpy-ly-Mnls jong - Acute Urinary Retention, Male, Knco-mk-Wule jong - Seizure, Adult, Bbhh-eb-Bnnk jong - Cough, Adult, Ocuk-hs-Vbbm jong - Weakness, Tkrs-yt-Uwxv jong Forms: - Medication Reconciliation Form jong - Thank You Letter jong - Antibiotic Education jong - Prescription Opioid Use jong Prescriptions: - Dexamethasone 0.75 mg Oral Tablet - take 2 tablet by ORAL route 2 times per day; 20 tablet; Refills: 0, Product jong Selection Permitted - Keppra 750 mg Oral Tablet - take 1 tablet by ORAL route every 12 hours; 20 tablet; Refills: 0, Product jong Selection Permitted Signatures: Dispatcher [employer] EDMS Ashish Fields MD MD cha Nieto, Roman, MD MD rn Leal, Jahala, RN RN jl7 Meeta Hawkins RN RN kd3 Amanda Mcdonald PA PA sb3 Corrections: (The following items were deleted from the chart) 05:07 05:06 CBC with Automated Diff ordered. EDMS EDMS 05:07 05:06 Basic Metabolic Panel ordered. EDMS EDMS 05:07 05:06 Protime (+INR) ordered. EDMS EDMS 05:07 05:06 PTT, Activated Partial Thromb ordered. EDMS EDMS 08:19 06:40 Dr. cindy sunshine 10:45 08:19 Dr. jong sunshine 10:46 10:45 Dr. 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 Heath Mayo formerly [facility]
--- NOTE | 2021-06-20 06:57 | RAD REPORT ---
EXAM DESCRIPTION: CT - Head Brain Wo Cont - 06/20/2021 5:55 am CLINICAL HISTORY: seizure, known brain cancer with swelling COMPARISON: <Comparisons> TECHNIQUE: All CT scans are performed using dose optimization technique as appropriate and may inclu de automated exposure control or mA/KV adjustment according to patient size. FINDINGS: Vasogenic edema throughout the right parietal and occipital lobe and to a lesser extent th e right posterior frontal lobe. There is a lesion measuring approximately 14 millimeters in the high right parietal lobe. Other lesions may also be present but this is not well assessed on a noncontrast head CT. No acute intracranial hemorrhage. There is effacement of the right occipital horn of the la teral ventricle . No hydrocephalus . Right maxillary sinus mucous retention cyst. The calvarium is intact. IMPRESSION: Vasogenic edema centered primarily in the right parietal and occipital lobe consistent w ith known brain neoplasm. No intracranial hemorrhage, hydrocephalus, or significant midline shift. No priors available for comparison.
[2021-06-20] MEDS ORDERED: levETIRAcetam 1,000 MG in NA CHLORIDE 0.9% 100 ML IV SCH (08:00)
[2021-06-20] MEDS ORDERED: lisinopriL 20 MG TAB ONE (09:43)
[2021-06-20] MEDS ORDERED: carvediloL 6.25 MG TAB ONE (09:43)
[2021-06-20] MEDS ORDERED: AMLODIPINE 10 MG TAB ONE (09:44)
[2021-06-20] MEDS ORDERED: ONDANSETRON 4 MG/2 ML VIAL ONE (09:44)
[2021-06-20] MEDS ORDERED: FENTANYL CITR 100 MCG/2 ML ONE (09:44)
[2021-06-20] MEDS ORDERED: LIDOCAINE VISCOUS 2% SOLN 15 ML UDC ONE (10:29)
[2021-06-20 11:49] VITALS: TEMP 98.5
[2021-06-20 11:51] VITALS: BP 134/54; O2SAT 99
== END 2021-06-20 11:47 | disposition home or self-care (01) ==
LOC: ER 05:00
DX: G40.509 Epileptic seizures related to external causes, not intractable, without status epilepticus (principal); U07.1 COVID-19; C71.9 Malignant neoplasm of brain, unspecified; G93.6 Cerebral edema; R53.1 Weakness; J44.1 Chronic obstructive pulmonary disease with (acute) exacerbation; R33.9 Retention of urine, unspecified; D38.1 Neoplasm of uncertain behavior of trachea, bronchus and lung; C34.90 Malignant neoplasm of unspecified part of unspecified bronchus or lung; I10 Essential (primary) hypertension; E11.9 Type 2 diabetes mellitus without complications; Z79.4 Long term (current) use of insulin; E78.5 Hyperlipidemia, unspecified; F17.210 Nicotine dependence, cigarettes, uncomplicated
CPT/HCPCS: 93005 ×2; 85025; 80048; 36415; 85610; 85730; 70450; 51702; 96375; 96374; 99285; U0003; J3010; J1100; J1953; J2405; 81003; 81015; J7040